=== PATIENT | male | born 1940 | race Caucasian/White ===

== ENCOUNTER 2023-03-25 09:56 | Inpatient (IN) | payer MEDICARE, OTHER, SELFPAY ==
[2023-03-25] VITALS (14 sets, daily range): BP systolic 128–173; BP diastolic 69–80; PULSE 76–85; RESP 15–24; TEMP 36.6–36.8; O2SAT 93–99; BMI 24.4
--- NOTE | 2023-03-25 10:15 | ED_ITS ---
HPI - General Adult General Chief complaint: Fall Stated complaint: Fall last night,found on ground Time Seen by Provider: 03/25/23 10:09 Source: patient and EMS Mode of arrival: EMS Limitations: no limitations History of Present Illness HPI narrative: Patient is an 82-year-old male. Not on anticoagulation. Does have history of Parkinson's disease. At baseline uses a walker. He states that last night he was trying to get his pants on. He states he was standing on 1 leg and fell over. He did not specifically hurt anything when he fell but he did hit his head. There was no loss of consciousness. He stated that he could not get up because he was so weak. He worked his way over to the hallway but then had to stop. He laid on his right side all night. His family members who found him this morning. They contacted EMS. After the patient was rolled over onto his back he started to have pain in his right arm and right hand. That has continued. He reports no headache. He does have some blurry vision in his right eye with some bruising around his right eye. No chest pain. No shortness of breath. No hip pain or lower extremity pain. Review of Systems Review of Systems ROS Unobtainable: All systems reviewed & are unremarkable except as noted in HPI and below Patient History Medical History Parkinsons disease Exam Initial Vital Signs Initial Vital Signs: Vital Signs Pulse Rate 80 03/25/23 10:01 Pulse Oximetry 95 03/25/23 10:01 Const General: cooperative HENMT Head: contusion (With swelling around the right eye), No hematoma and No laceration Mouth: moist mucous membranes Chest Chest: No crepitus and No tenderness Resp Effort & Inspection: normal respiratory effort Auscultation: clear to auscultation bilaterally Cardio Rate: regular rate Rhythm: regular rhythm GI Inspection: normal to inspection and non-distended Back/Spine/Pelvis Cervical Spine: No cervical spinal tenderness Skin Other: Patient has a contusion and some swelling around his right eye. He has what appeared to be ruptured blisters on his right anterior chest and also his right upper quadrant. This is consistent with pressure sores leg in this area. He does have contusions to his right forearm. No active bleeding. Neuro General: patient alert, patient awake, patient oriented x3 and moves all extremities Cognition: normal cognition Speech: speech normal Extrem Other: Patient's hips were stable. He was able to raise and lower his legs. His knees and ankles unremarkable. Left upper extremities unremarkable. His right s houlder is unremarkable. He does have tenderness and some swelling just distal to his right forearm. His right forearm compartments are soft. He is able to flex and extend his wrist but has quite a bit of discomfort in his hand. Scores GCS [place] coma scale eye opening: Spontaneous Marlene coma scale verbal response: Orientated Marlene coma scale motor response: Obey commands Marlene coma scale total score: 15 Nexus Score for C-Spine Focal Neurologic deficit present: No Midline spinal tenderness present: No Altered level of conciousness present: No Intoxication present: No Distracting Injury Present: No Nexus Criteria for C-spine: 0 Course Orders Ordered: ED Orders 03/25/23 10:16 CT facial bones wo con Stat CT head/brain wo con Stat XR forearm RT 2V Stat XR hand RT min 3V Stat 03/25/23 10:18 Complete Blood Count AUTO DIFF Stat Comprehensive Metabolic Panel Stat Lipase Stat Magnesium Stat Troponin & CK Cardiac Panel Stat 03/25/23 11:31 COVID19 -Nasal RAPID Stat Acetaminophen (Acetaminophen 325 Mg Tablet) 650 mg PO Q6H PRN PRN Reason: Fever/Mild Pain (1-3) Enoxaparin Sodium (Enoxaparin 40 Mg/0.4 Ml Syringe) 40 mg SUBCUT DAILY PAMELA Sodium Chloride (Normal Saline 0.9%) 1,000 mls @ 125 mls/hr IV CONT PAMELA Last Admin: 03/25/23 10:51 Dose: 125 mls/hr Documented By: ILIR Melatonin (Melatonin 3 Mg Tablet) 6 mg PO BEDTIME PRN PRN Reason: Insomnia Naloxone HCl (Naloxone 0.4 Mg/Ml Vial) 0.2 mg IV Q2MIN PRN PRN Reason: Opiate Reversal Ondansetron HCl (Ondansetron 4 Mg/2 Ml Inj) 4 mg IV Q6HR PAMELA Oxycodone HCl (Oxycodone Ir 5 Mg Tablet) 5 mg PO Q4HR PRN PRN Reason: Pain, Moderate (4-6) Polyethylene Glycol (Polyethylene Glycol 3350 17 Gm Powd.Pack) 17 gm PO DAILY PRN PRN Reason: Constipation Sennosides (Sennosides 8.6 Mg Tablet) 8.6 mg PO BID PRN PRN Reason: Constipation Vital Signs Vital signs: Vital Signs - 8 hr 03/25/23 10:07 03/25/23 10:01 03/25/23 10:04 Temperature 98.1 F Pulse Rate 81 80 80 Respiratory Rate 16 21 Blood Pressure 168/80 H Pulse Oximetry 95 95 95 Oxygen Delivery Method Room Air 03/25/23 10:04 03/25/23 10:44 03/25/23 10:44 Temperature Pulse Rate 84 Respiratory Rate 23 Blood Pressure 168/80 H 173/79 H Pulse Oximetry 99 Oxygen Delivery Method 03/25/23 10:50 03/25/23 10:50 03/25/23 11:00 Temperature Pulse Rate 84 80 Respiratory Rate 23 20 Blood Pressure 169/79 H Pulse Oximetry 99 98 Oxygen Delivery Method 03/25/23 11:01 03/25/23 11:01 03/25/23 11:10 Temperature Pulse Rate 80 81 Respiratory Rate 20 21 Blood Pressure 168/72 H Pulse Oximetry 98 94 Oxygen Delivery Method 03/25/23 11:10 03/25/23 11:20 03/25/23 11:20 Temperature Pulse Rate 81 Respiratory Rate 18 Blood Pressure 171/80 H 163/74 H Pulse Oximetry 94 Oxygen Delivery Method Medical Decision Making Lab Data Lab results reviewed: Yes I reviewed the patient's lab results. 03/25/23 10:18 03/25/23 10:18 Labs: Lab Results 03/25/23 03/25/23 03/25/23 Range/Units 10:18 10:18 10:18 WBC 12.9 H (4.5-11.0) X10^3/uL RBC 4.77 (4.5-5.9) X10^6/uL Hgb 15.9 (13.5-17.5) g/dL Hct 45.0 (41-53) % MCV 94.3 (80-100) fL MCH 33.2 (26-34) PG MCHC 35.2 (30-36) % RDW 13.7 (11.6-14.8) % Plt Count 198 (150-400) X10^3/uL Neut % (Auto) 87.6 H (50-75) % Lymph % (Auto) 5.1 L (25-40) % [place] % (Auto) 6.8 (3-14) % Eos % (Auto) 0.0 L (2-4) % Baso % (Auto) 0.5 (0-2) % Neut # (Auto) 67769 H (8179-2011) /uL Lymph # (Auto) 700 L (7234-5407) /uL [place] # (Auto) 900 (0-900) /uL Eos # (Auto) 0 (0-450) /uL Baso # (Auto) 100 (0-100) /uL Sodium 138 (137-145) mmol/L Potassium 3.5 (3.4-5.1) mmol/L Chloride 103 (98-107) mmol/L Carbon Dioxide 23 (22-32) mmol/L BUN 33 H (9-20) mg/dL Creatinine 0.81 (0.66-1.25) mg/dL Estimated GFR > 60 (>60) mL/min BUN/Creatinine Ratio 40.7 H (6-22) Glucose 155 H (80-110) mg/dL Calcium 9.0 (8.4-10.2) mg/dL Magnesium 2.2 (1.6-2.3) mg/dL Total Bilirubin 1.7 H (0.2-1.3) mg/dL AST 145 H (17-59) IU/L ALT 45 (<50) IU/L Alkaline Phosphatase 61 (38-126) U/L Total Creatine Kinase 51834 H (55-170) U/L CK-MB (CK-2) 33.00 H (<2.37) ng/mL CK-MB (CK-2) Rel Index 0.3 L (1.5-5.0) % Troponin I 0.032 (0.01-0.034) ng/mL Total Protein 7.1 (6.3-8.2) g/dL Albumin 4.3 (3.5-5.0) g/dL Globulin 2.8 (1.7-4.1) g/dL Albumin/Globulin Ratio 1.5 (1.0-2.8) Lipase 28 (23-300) U/L Imaging Data face CT: Radiologist's Impression: PROCEDURE:? CT FACIAL BONES WO CON ? INDICATIONS:? fall with right sided contusion ? TECHNIQUE:? Noncontrast 2.5 mm thick axial images acquired from the mandible through the frontal sinuses, with coronal and sagittal reformatting.? For radiation dose reduction, the following was used:? automated exposure control, adjustment of mA and/or kV according to patient size.? ? COMPARISON:? None. ? FINDINGS:? Image quality:? Good ? Bones: No displaced fracture. Orbital medley are intact. Nasal bone and septum are intact. Mandible is intact. Zygomatic arches and pterygoid plates are intact. No skull base fracture. ? Sinuses and mastoids:? Mastoids are clear.? Mild paranasal sinus mucosal thickening, without intra sinus hemorrhage. ? Soft tissues:? Soft tissue contusion in the right periorbital and infraorbital region. ? Brain:? Separately dictated ? IMPRESSION:? Right facial and infra orbital/periorbital soft tissue contusion.? No displaced fracture identified. Extremity x-ray #1: Radiologist's Impression: PROCEDURE:? XR FOREARM RT 2V ? INDICATIONS:? fall with pain ? TECHNIQUE:? 2 views of the forearm were acquired.? ? COMPARISON:? None. ? FINDINGS:? ? Bones:? No fracture of the ulnar or radial shafts.? Age indeterminate bone fragment is seen adjacent to the lateral humeral epicondyle, likely chronic.? There is also a tiny bone fragment volar to the carpal bones seen on lateral view also age- indeterminate. ? Soft tissues:? No suspicious calcifications elsewhere. ? ? IMPRESSION:? No definite acute radiographic abnormality.? If there is high concern for occult injury, consider repeat radiography or cross-sectional imaging. Hand findings are separately dictated Extremity x-ray #2: Radiologist's Impression: PROCEDURE:? XR HAND RT MIN 3V ? INDICATIONS:? fall with pain ? TECHNIQUE:? 3 views of the hand(s) acquired.? ? COMPARISON:? None. ? FINDINGS:? ? Bones:? Overall suboptimal positioning due to patient compliance. ? Scattered degenerative changes. ? No displaced fracture or dislocation identified. ? Soft tissues:? Hyperdensity is seen adjacent to the 1st metacarpal on oblique vi ew. ? ? IMPRESSION:? No acute radiographic abnormality.? Scattered degenerative changes.? Suboptimal positioning.? If there is high concern for occult injury, consider repeat radiography or cross-sectional imaging. CT scan - head: Radiologist's Impression: PROCEDURE:? CT HEAD/BRAIN WO CON ? INDICATIONS:? fall ? TECHNIQUE:? Noncontrast 4.5 mm thick angled axial sections acquired from the foramen magnum to the vertex, with coronal and sagittal reformats.? For radiation dose reduction, the following was used:? automated exposure control, adjustment of mA and/or kV according to patient size.? ? COMPARISON:? None. ? FINDINGS:? Image quality:? Good ? CSF spaces: Basal cisterns are patent. Lateral ventricles are symmetric. Volume:? Vascular calcifications. Periventricular white matter disease is commonly seen with chronic microangiopathy. Volume loss is present. These findings are moderate ? Brain: No intracranial hemorrhage. Curtis-white differentiation is grossly maintained. ? Craniofacial structures:? Separately dictated ? IMPRESSION:? No acute intracranial abnormality.? Facial findings are separately dictated. MDM Narrative Medical decision making narrative: Patient is alert oriented upon arrival. Cervical spine is cleared by nexus criteria. His CK is elevated and this is consistent with him lying on his arm overnight. He is no fractures noted on the x-rays. I have low suspicion for compartment syndrome as his compartments are soft and he does not have any pain with active or passive movement of his wrist or his elbow. This is certainly something that needs to be watched. I did discuss this with the admitting provider. This did appear to be a mechanical fall. Patient does require admission to the hospital for further evaluation and IV fluids. I discuss this with the patient and his family at bedside. I also discussed the case with Dr. Nichols hospitalist on-call who will admit for further evaluation and treatment. Discharge Plan Departure Patient Disposition: Admitted As Inpatient Clinical Impression: Rhabdomyolysis, Contusion of skin, Parkinson's disease Admit Date/Time: 03/25/23 11:29 Admit Provider: Raheel Nichols
--- NOTE | 2023-03-25 10:16 | DI.RAD.S_ITS ---
PROCEDURE: XR FOREARM RT 2V INDICATIONS: fall with pain TECHNIQUE: 2 views of the forearm were acquired. COMPARISON: None. FINDINGS: Bones: No fracture of the ulnar or radial shafts. Age indeterminate bone fragment is seen adjacent to the lateral humeral epicondyle, likely chronic. There is also a tiny bone fragment volar to the carpal bones seen on lateral view also age-indeterminate. Soft tissues: No suspicious calcifications elsewhere. IMPRESSION: No definite acute radiographic abnormality. If there is high concern for occult injury, consider repeat radiography or cross-sectional imaging. Hand findings are separately dictated Dictated by: Fito Ramsey M.D. on 03/25/2023 at 11:06 Approved by: Fito Ramsey M.D. on 03/25/2023 at 11:08
--- NOTE | 2023-03-25 10:16 | DI.CT.S_ITS ---
PROCEDURE: CT HEAD/BRAIN WO CON INDICATIONS: fall TECHNIQUE: Noncontrast 4.5 mm thick angled axial sections acquired from the foramen magnum to the vertex, with coronal and sagittal reformats. For radiation dose reduction, the following was used: automated exposure control, adjustment of mA and/or kV according to patient size. COMPARISON: None. FINDINGS: Image quality: Good CSF spaces: Basal cisterns are patent. Lateral ventricles are symmetric. Volume: Vascular calcifications. Periventricular white matter disease is commonly seen with chronic microangiopathy. Volume loss is present. These findings are moderate Brain: No intracranial hemorrhage. Curtis-white differentiation is grossly maintained. Craniofacial structures: Separately dictated IMPRESSION: No acute intracranial abnormality. Facial findings are separately dictated. Dictated by: Fito Ramsey M.D. on 03/25/2023 at 10:46 Approved by: Fito Ramsey M.D. on 03/25/2023 at 10:47
--- NOTE | 2023-03-25 10:16 | DI.RAD.S_ITS ---
PROCEDURE: XR HAND RT MIN 3V INDICATIONS: fall with pain TECHNIQUE: 3 views of the hand(s) acquired. COMPARISON: None. FINDINGS: Bones: Overall suboptimal positioning due to patient compliance. Scattered degenerative changes. No displaced fracture or dislocation identified. Soft tissues: Hyperdensity is seen adjacent to the 1st metacarpal on oblique view. IMPRESSION: No acute radiographic abnormality. Scattered degenerative changes. Suboptimal positioning. If there is high concern for occult injury, consider repeat radiography or cross-sectional imaging. Dictated by: Fito Ramsey M.D. on 03/25/2023 at 11:08 Approved by: Fito Ramsey M.D. on 03/25/2023 at 11:10
--- NOTE | 2023-03-25 10:16 | DI.CT.S_ITS ---
PROCEDURE: CT FACIAL BONES WO CON INDICATIONS: fall with right sided contusion TECHNIQUE: Noncontrast 2.5 mm thick axial images acquired from the mandible through the frontal sinuses, with coronal and sagittal reformatting. For radiation dose reduction, the following was used: automated exposure control, adjustment of mA and/or kV according to patient size. COMPARISON: None. FINDINGS: Image quality: Good Bones: No displaced fracture. Orbital medley are intact. Nasal bone and septum are intact. Mandible is intact. Zygomatic arches and pterygoid plates are intact. No skull base fracture. Sinuses and mastoids: Mastoids are clear. Mild paranasal sinus mucosal thickening, without intra sinus hemorrhage. Soft tissues: Soft tissue contusion in the right periorbital and infraorbital region. Brain: Separately dictated IMPRESSION: Right facial and infra orbital/periorbital soft tissue contusion. No displaced fracture identified. Dictated by: Fito Ramsey M.D. on 03/25/2023 at 10:47 Approved by: Fito Ramsey M.D. on 03/25/2023 at 10:50
[2023-03-25 10:40] LABS: Add Manual Diff / Slide Review NO; Basophils Absolute Auto 100 /uL (0-100); Basophils Percent Auto 0.5 % (0-2); Eosinophils Absolute Auto 0 /uL (0-450); Hemoglobin 15.9 g/dL (13.5-17.5); Lymphocytes Absolute Auto 700 /uL (1100-4500); Lymphocytes Percent Auto 5.1 % (25-40); Mean Corpuscular HGB Conc 35.2 % (30-36); Mean Corpuscular Hemoglobin 33.2 PG (26-34); Mean Corpuscular Volume 94.3 fL (80-100); Monocytes Absolute Auto 900 /uL (0-900); Monocytes Percent Auto 6.8 % (3-14); Neutrophils Absolute Auto 11300 /uL (1500-7000); Neutrophils Percent Auto 87.6 % (50-75); Platelet Count 198 X10^3/uL (150-400); Red Blood Cell Count 4.77 X10^6/uL (4.5-5.9); Red Cell Distribution Width 13.7 % (11.6-14.8); White Blood Cell Count 12.9 X10^3/uL (4.5-11.0)
[2023-03-25 10:46] LABS: Lipase 28 U/L (23-300); Magnesium 2.2 mg/dL (1.6-2.3)
[2023-03-25 10:47] LABS: Alanine Aminotransferase 45 IU/L (<50); Albumin 4.3 g/dL (3.5-5.0); Albumin Globulin Ratio 1.5 (1.0-2.8); Alkaline Phosphatase 61 U/L (38-126); Aspartate Aminotransferase 145 IU/L (17-59); BUN Creatinine Ratio 40.7 (6-22); Bilirubin Total 1.7 mg/dL (0.2-1.3); Blood Urea Nitrogen 33 mg/dL (9-20); Carbon Dioxide 23 mmol/L (22-32); Chloride 103 mmol/L (98-107); Estimated Glomerular Filt Rate > 60 mL/min (>60); Globulin 2.8 g/dL (1.7-4.1); Glucose 155 mg/dL (80-110); HEMOLYSIS 21 (0-50); Potassium 3.5 mmol/L (3.4-5.1); Sodium 138 mmol/L (137-145); Total Protein 7.1 g/dL (6.3-8.2)
[2023-03-25] MEDS: SODIUM CHLORIDE 0.9% 1,000 ML 125 ML IV ×2 (10:51→20:46)
[2023-03-25 10:57] LABS: Troponin I 0.032 ng/mL (0.01-0.034)
[2023-03-25 11:03] LABS: Creatine Kinase 11163 U/L (55-170)
--- NOTE | 2023-03-25 11:21 | PM.HP.1 ---
History of Present Illness History of Present Illness Date Patient Seen: 03/25/23 Time Patient Seen: 15:00 Chief complaint: Fall last night,found on ground Narrative: Mohan Roberts is an 82-year-old male with past medical history of Parkinson's disease not on Sinemet and HTN who presents after fall at home and lying on the ground all night. Patient states he lives alone in a trailer and uses a walker to ambulate. Last night while attempting to put on pants, he tripped and landed facefirst. He was unable to get up due to weakness from his Parkinson's. He did not lose conciousness. He says he laid on the floor overnight for over 6 hours until his family found him and called EMS. He states he is having pain in his right hand and arm. Both are more swollen than his left extremity. He still has feeling in his hand. Patient says he doesn't take meds for his parkinson's due to hallucinations he had with them in the past. He denies CP, SOB, abd pain, NV or diarrhea. In the ED patient found to have rhabdo with CK 11k. Cr normal. CT head, neck, face and right hand XR shows no fractures. He has a right periorbital contusion on CT from his face lying on the ground. [facility] Medical History Parkinsons disease Social History household members: children Smoking Status: Former smoker Review of Systems Review of Systems Narrative: All other systems reviewed with the patient and are negative unless otherwise stated. Exam Vital Signs (past 8 hours): - 03/25/23 10:07 Temperature 98.1 F Pulse Rate 81 Respiratory Rate 16 Blood Pressure 168/80 H Pulse Oximetry 95 Oxygen Delivery Method Room Air Oxygen Delivery Method Room Air Narrative Exam Narrative: GEN: no acute distress, flat affect due to parkinson's HEENT: moist mucous membranes, PERRL NECK: trachea midline, no JVD CV: regular rate and rhythm, no murmurs PULM: clear bilaterally ABD: soft, nontender, nondistended, no organomegaly EXT: right forearm and hand with increased swelling, no erythema, cap refill normal and sensation intact NEURO: awake, alert, oriented, no focal deficits Objective Labs 03/25/23 10:18 05/16/23 10:18 Labs: Laboratory Results - last 24 hr 03/25/23 03/25/23 03/25/23 10:18 10:18 10:18 WBC 12.9 H RBC 4.77 Hgb 15.9 Hct 45.0 MCV 94.3 MCH 33.2 MCHC 35.2 RDW 13.7 Plt Count 198 Neut % (Auto) 87.6 H Lymph % (Auto) 5.1 L Tyrrell % (Auto) 6.8 Eos % (Auto) 0.0 L Baso % (Auto) 0.5 Neut # (Auto) 45777 H Lymph # (Auto) 700 L [place]rell # (Auto) 900 Eos # (Auto) 0 Baso # (Auto) 100 Sodium 138 Potassium 3.5 Chloride 103 Carbon Dioxide 23 BUN 33 H Creatinine 0.81 Estimated GFR > 60 BUN/Creatinine Ratio 40.7 H Glucose 155 H Calcium 9.0 Magnesium 2.2 Total Bilirubin 1.7 H AST 145 H ALT 45 Alkaline Phosphatase 61 Total Creatine Kinase 46132 H Troponin I 0.032 Total Protein 7.1 Albumin 4.3 Globulin 2.8 Albumin/Globulin Ratio 1.5 Lipase 28 Assessment & Plan Assessment & Plan narrative: # acute rhabdomyolysis -CK 11,163, normal kidney function -continue IV fluids and trending CK levels # ground level fall and prolonged downtime -accidentally tripped while putting on pants -PT/OT evals -[employer] as will likely need SNF # right forearm and hand swelling -no evidence of compartment syndrome -oxy PRN for pain # elevated AST -145 on admission, normal ALT -monitor # Parkinson's disease -not on sinemet # HTN -hold home HCTZ and lisinopril as currently normotensive Code status is DNR. COVID negative. DVT prophylaxis with Lovenox. Proxy is son Mark. I have reviewed home meds and used all available resources to reconcile the home meds. This patient will be admitted as observation and will require less than 2 midnights of hospital time to treat rhabdomyolysis.
[2023-03-25 11:28] LABS: CKMB % Relative Index 0.3 % (1.5-5.0)
--- NOTE | 2023-03-25 11:34 | DI.RAD.S_ITS ---
PROCEDURE: XR CHEST 1V INDICATIONS: leukocytosis, fall eval for broken ribs TECHNIQUE: One view of the chest was acquired. 2 images. COMPARISON: None. FINDINGS: Surgical changes and devices: None. Lungs and pleura: Lungs are clear. No pleural effusions or pneumothorax. Mediastinum: Mediastinal contours appear normal. Heart size is normal. Bones and chest wall: No suspicious bony lesions. No obvious displaced rib fracture. Overlying soft tissues appear unremarkable. IMPRESSION: No acute cardiopulmonary abnormality. No obvious displaced rib fracture. Consider dedicated rib radiographs or CT chest for further evaluation. Dictated by: Pedro Bonilla M.D. on 03/25/2023 at 12:18 Approved by: Pedro Bonilla M.D. on 03/25/2023 at 12:19
[2023-03-25 11:47] LABS: COVID19 -Nasal RAPID Negative (Negative)
--- NOTE | 2023-03-25 14:20 | PT.IIE ---
Medical History (Last Reviewed 03/25/23 @ 10:38 by Onesimo Mckeon DO) Parkinsons disease Physical Therapy Inpatient Evaluation/Re-Eval M1 PT/OT-IP Prior Functional Status Start: 03/25/23 15:46 Freq: NEEDED Status: Active Protocol: Document 03/25/23 14:20 AB (Rec: 03/25/23 16:07 AB [email or web address]) Medical Review Prior Functional Status Medical History Reviewed Yes Communication able to make needs known but pt slow to respond to question Mobility and Gait pt sated that he is modified independent with all mobilities and ambulation uisng a 4WW but occasionally without AD indoors. Social History Household Members none Living Arrangements Mobile home Number of Floors (Floors) One Floor Number of Stairs To Enter/Railing? 3 steps B rails to enter Home Environment Standard Height Toilet,Walk in Shower Home Equipment Four Wheel Walker,Hand Held Shower,Grab Bars Near Toilet, Grab Bars In Shower Additional Social History Comment pt stated that her son/DIL visits him daily for ~ 1 hour and assists him with his groceries M2 PT-IP Current Condition Start: 03/25/23 15:46 Freq: NEEDED Status: Active Protocol: Document 03/25/23 14:20 AB (Rec: 03/25/23 16:07 [email or web address]) Physical Therapy Current Condition Current Condition Evaluation Date 03/25/23 Treatment Diagnosis s/p fall; rhabdomyolysis; PD; difficulty in walking Onset Date 03/25/23 M3 PT-IP Subjective Start: 03/25/23 15:46 Freq: NEEDED Status: Active Protocol: Document 03/25/23 14:20 AB (Rec: 03/25/23 16:07 [email or web address]) Subjective Physical Therapy Visit Type Type Initial Evaluation Visit Start Time 14:20 Visit Stop Time 14:55 Total Visit Minutes 35 Number of [employer] 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 Visits 0 Physical Therapy Visit Comments Patient Comments pt is agreeable to do PT Therapy Pain Assessment Pain When Pain Assessed At Rest Pain Present Pain Present Pain Reported Location R forearm/hand Intensity 5 Scale Used Numeric (0 - 10) Pain Management Techniques Distraction,Elevation, Modification of Treatment,Re- positioning,Timing of Activity with Medications M4 PT-IP Mobility and Gait Start: 03/25/23 15:46 Freq: NEEDED Status: Active Protocol: Document 03/25/23 14:20 AB (Rec: 03/25/23 16:07 AB [id number]) PT-Bed Mobility Assessment Supine to Sit Supine to Sit Maximum Assistance,1 Person Assistance,2 Person Assistance ,Head of Bed Elevated,Bedrails Sit to Supine Sit to Supine Maximum Assistance,1 Person Assistance Scooting Scooting to Edge of Bed Dependent PT-Transfer Assessment Sit to and From Stand Sit to and from Stand Maximum Assistance,1 Person Assistance,2 Person Assistance ,Use of Upper Extremities Equipment Transfer Assistive Device Gait Belt,Front Wheeled Walker Orthotic/Prosthetic Devices or Brace: No Transfer Ability Level of Assist Maximum Assistance,1 Person Assistance,2 Person Assistance ,Use of Upper Extremities Comments Mobility Comments pt completed supine to sit max A x 1-2 and max cues with HOB elevated and use of bed rail. pt with R forearm and hand swelling with c/o pain with increase finger flexion. pt with limited hand opening. total A for scooting to EOB. increase L lateral leaning noted and pt with increase overall trunk stiffness. completed sit to stand max A x 1-2 and max cues and ambulated ~ 10 ft using FWW max A x 1-2 and max cues. pt required max A for weight shifting to assist with LE propulsion. pt also has difficulty holding on to FWW due to R hand swelling requiring assist to hold on to FWW. pt sat back on EOB and required max A for sit to supine. positioned pt on the bed. call light and table placed within reach. pt demonstrated increase reaction time with all tasks. Gait Assessment Gait Gait Assistance Required: Maximum Assistance,1 Person Assist,2 Person Assist Distance (Feet) 10 Able to Maintain Weight Bearing Status Yes During Gait Assistive Devices Assistive Device Gait Belt,Front Wheeled Walker Orthotic/Prosthetic Devices or Brace: No Gait Deviations General Gait Pattern Decreased Stride Length, Decreased Feet Clearance, Lateral Trunk Lean,Narrow Based Gait,Step-to Gait Factors Limiting Gait Function Factors Limiting Gait Function Decreased Activity Tolerance, Decreased Strength,Difficulty Following Directions, Incoordination,Limited Range of Motion,Pain,Poor Balance, Poor Safety Awareness PT-Balance Assessment Sitting Balance and Reactions Static Sitting Balance Ability Fair Dynamic Sitting Balance Ability Poor Standing Balance and Reactions Static Standing Balance Ability Poor Dynamic Standing Balance Ability Poor Device Used FWW M5 PT-IP Objective Assessments Start: 03/25/23 15:46 Freq: NEEDED Status: Active Protocol: Document 05/16/23 14:20 AB (Rec: 03/25/23 16:07 AB [id number]) Orientation Orientation/Cognition Level of Alertness Alert Orientation Name Safety Awareness Decreased Safety Awareness Memory Description Short Term Impaired Gross Range of Motion Lower Extremity ROM Assessment Within Functional Limits Strength Lower Extremity Strength Assessment Within Functional Limits M6 PT-IP Treatment Start: 03/25/23 15:46 Freq: NEEDED Status: Active Protocol: Document 03/25/23 14:20 AB (Rec: 03/25/23 16:07 AB [id number]) Physical Therapy Treatment Education Education Provided Safety M7 PT-IP Assessment and Plan Start: 03/25/23 15:46 Freq: NEEDED Status: Active Protocol: Document 03/25/23 14:20 AB (Rec: 03/25/23 16:07 AB [email or web address]) PT Summary Assessment and Plan Potential Rehabilitation Potential Fair Status of Condition at Evaluation Evolving Summary Impairments Pain,ROM,Strength,Balance, Coordination,Sensation,Tone, Cognition,Bed Mobility, Transfers,Gait,Activity Tolerance Assessment Summary Pt s/p fall and admitted for rhabdomyolysis. pt also has dx of parkinson's disease but per nurse, pt is not taking any medication for PD due to side effects. pt needing max A x 1-2 with mobilities and will require SNF rehab at this time. will continue to assess progress. Goals Bed Mobility Goal Minimal Assistance Transfer Goal Minimal Assistance,Front Wheeled Walker Gait Goal Minimal Assistance,Front Wheel Walker Gait Distance 50 Other Goals improve bed mobility, transfers and ambulation using 4WW SBA up/down 3 steps B rails SBA Days to Meet Goals 10 Frequency of Treatment Frequency Of Treatment Once a Day Treatment Plan Physical Therapy Treatment Plan Bed Mobility Training,Transfer Training,Gait Training, Therapeutic Exercise,Balance Retraining,Discharge Planning, Hot or Cold Pack,Neuromuscular Re-ed,Coordination Retraining ,Manual Therapy Precautions Other Precautions falls Recommendations To Nursing Amount of Assist Needed 2 Person Assist Discharge Recommendations PT Discharge Recommendations SNF Rehab Transportation Needs at Discharge Wheelchair/Cabulance
[2023-03-26 04:58] VITALS: BP 151/78; PULSE 80; RESP 24; TEMP 36.6; O2SAT 97
[2023-03-26 05:58] LABS: Appearance Urine UA CLEAR; Bilirubin Urine UA 1+ (NEGATIVE); Color Urine UA YELLOW; Glucose Urine UA NEGATIVE (Negative); Ketones Urine UA 2+ (NEGATIVE); Leukocyte Esterase Urine UA NEGATIVE (NEGATIVE); Nitrite Urine UA NEGATIVE (Negative); Occult Blood Urine UA 3+ (Negative); Protein Urine UA 2+ (Negative); Specific Gravity Urine UA >=1.030 (1.000-1.035); pH Urine UA 5.5 (4.5-8.0)
[2023-03-26 06:05] LABS: Bacteria Urine None Seen; Culture Indicated Urine Cult Not Indicated; RBC Urine 0-1/HPF (0-5/HPF); WBC Urine 0-1/HPF (0-5/HPF)
[2023-03-26 06:18] LABS: Ictotest Urine Negative (Negative)
[2023-03-26 06:30] LABS: Add Manual Diff / Slide Review NO; Basophils Absolute Auto 0 /uL (0-100); Basophils Percent Auto 0.1 % (0-2); Eosinophils Absolute Auto 0 /uL (0-450); Hematocrit 45.2 % (41-53); Hemoglobin 16.2 g/dL (13.5-17.5); Lymphocytes Absolute Auto 900 /uL (1100-4500); Lymphocytes Percent Auto 6.9 % (25-40); Mean Corpuscular HGB Conc 35.7 % (30-36); Mean Corpuscular Hemoglobin 33.6 PG (26-34); Monocytes Absolute Auto 1000 /uL (0-900); Monocytes Percent Auto 7.8 % (3-14); Neutrophils Absolute Auto 11200 /uL (1500-7000); Neutrophils Percent Auto 85.2 % (50-75); Platelet Count 163 X10^3/uL (150-400); Red Blood Cell Count 4.81 X10^6/uL (4.5-5.9); Red Cell Distribution Width 13.5 % (11.6-14.8); White Blood Cell Count 13.1 X10^3/uL (4.5-11.0)
[2023-03-26 06:42] LABS: Alanine Aminotransferase 112 IU/L (<50); Albumin 3.4 g/dL (3.5-5.0); Albumin Globulin Ratio 1.2 (1.0-2.8); Alkaline Phosphatase 54 U/L (38-126); Aspartate Aminotransferase 453 IU/L (17-59); BUN Creatinine Ratio 43.3 (6-22); Bilirubin Total 1.7 mg/dL (0.2-1.3); Blood Urea Nitrogen 29 mg/dL (9-20); Calcium 8.3 mg/dL (8.4-10.2); Carbon Dioxide 27 mmol/L (22-32); Chloride 107 mmol/L (98-107); Estimated Glomerular Filt Rate > 60 mL/min (>60); Globulin 2.8 g/dL (1.7-4.1); Glucose 132 mg/dL (80-110); HEMOLYSIS < 15 (0-50); Potassium 3.6 mmol/L (3.4-5.1); Sodium 140 mmol/L (137-145); Total Protein 6.2 g/dL (6.3-8.2)
--- NOTE | 2023-03-26 07:12 | P.PN_ITS ---
Subjective Subjective Interval history: Patient appeared to have aspirated this morning. Has a very wet cough. CXR ordered, made NPO and speech consult ordered. Exam Vital Signs (past 8 hours): - 03/26/23 04:58 Temperature 97.8 F Pulse Rate 80 Respiratory Rate 24 Blood Pressure 151/78 H Pulse Oximetry 97 Oxygen Flow Rate 0 Oxygen Delivery Method Room Air Oxygen Flow Rate 0 Narrative Exam Narrative: GEN: no acute distress, flat affect due to parkinson's, wet sounding gurgly cough, diaphoretic HEENT: moist mucous membranes, PERRL NECK: trachea midline, no JVD CV: regular rate and rhythm, no murmurs PULM: clear bilaterally ABD: soft, nontender, nondistended, no organomegaly EXT: right forearm and hand with increased swelling, no erythema, cap refill normal and sensation intact NEURO: awake, alert, oriented, no focal deficits Objective Labs 03/26/23 05:50 03/26/23 05:50 Labs: Laboratory Results - last 24 hr 03/25/23 03/25/23 03/25/23 10:18 10:18 10:18 WBC 12.9 H RBC 4.77 Hgb 15.9 Hct 45.0 MCV 94.3 MCH 33.2 MCHC 35.2 RDW 13.7 Plt Count 198 Neut % (Auto) 87.6 H Lymph % (Auto) 5.1 L [place] % (Auto) 6.8 Eos % (Auto) 0.0 L Baso % (Auto) 0.5 Neut # (Auto) 66093 H Lymph # (Auto) 700 L [place] # (Auto) 900 Eos # (Auto) 0 Baso # (Auto) 100 Sodium 138 Potassium 3.5 Chloride 103 Carbon Dioxide 23 BUN 33 H Creatinine 0.81 Estimated GFR > 60 BUN/Creatinine Ratio 40.7 H Glucose 155 H Calcium 9.0 Magnesium 2.2 Total Bilirubin 1.7 H AST 145 H ALT 45 Alkaline Phosphatase 61 Total Creatine Kinase 49431 H CK-MB (CK-2) 33.00 H CK-MB (CK-2) Rel Index 0.3 L Troponin I 0.032 Total Protein 7.1 Albumin 4.3 Globulin 2.8 Albumin/Globulin Ratio 1.5 Lipase 28 Urine Color Urine Appearance Urine pH Ur Specific [place] Urine Protein Urine Glucose (UA) Urine Ketones Urine Occult Blood Urine Nitrate Urine Bilirubin Ur Bilirubin Confirm Urine Urobilinogen Ur Leukocyte Esterase Urine RBC Urine WBC Urine Bacteria Ur Culture Indicated? SARS-CoV-2 (PCR) 03/25/23 03/26/23 03/26/23 11:31 05:50 05:50 WBC 13.1 H RBC 4.81 Hgb 16.2 Hct 45.2 MCV 94.0 MCH 33.6 MCHC 35.7 RDW 13.5 Plt Count 163 Neut % (Auto) 85.2 H Lymph % (Auto) 6.9 L [place] % (Auto) 7.8 Eos % (Auto) 0.0 L Baso % (Auto) 0.1 Neut # (Auto) 74714 H Lymph # (Auto) 900 L [place] # (Auto) 1000 H Eos # (Auto) 0 Baso # (Auto) 0 Sodium Potassium Chloride Carbon Dioxide BUN Creatinine Estimated GFR BUN/Creatinine Ratio Glucose Calcium Magnesium Total Bilirubin AST ALT Alkaline Phosphatase Total Creatine Kinase CK-MB (CK-2) CK-MB (CK-2) Rel Index Troponin I Total Protein Albumin Globulin Albumin/Globulin Ratio Lipase Urine Color Yellow Urine Appearance Clear Urine pH 5.5 Ur Specific [place] >=1.030 H Urine Protein 2+ H Urine Glucose (UA) Negative Urine Ketones 2+ H Urine Occult Blood 3+ H Urine Nitrate Negative Urine Bilirubin 1+ H Ur Bilirubin Confirm Negative Urine Urobilinogen 1.0 Ur Leukocyte Esterase Negative Urine RBC 0-1/hpf Urine WBC 0-1/hpf Urine Bacteria None seen Ur Culture Indicated? Cult not indicated SARS-CoV-2 (PCR) Negative PFSH Medical History (Updated 03/25/23 @ 17:48 by Denisse Blackmon RN) Actinic keratosis Arthritis Depression Drooling Erectile dysfunction Essential hypertension Falls frequently Fasting hyperglycemia Former smoker Hypertension Inguinal hernia Lumbar back pain Macrocytosis Normal colonoscopy Osteoarthritis of right hip Parkinsons disease Sebaceous cyst Seborrheic keratosis Surgical History (Updated 03/25/23 @ 17:48 by Denisse Blackmon RN) H/O cataract removal with insertion of prosthetic lens Social History household members: none Smoking Status: Former smoker Assessment & Plan Assessment & Plan narrative: # acute rhabdomyolysis without ASHKAN -CK 11,163, normal kidney function -continue IV fluids and trending CK levels -CK up to 17k # concern for possible aspiration -patient appeared to aspirate on his breakfast on -CXR shows no pneumonitis -strict NPO, speech eval ordered -MBS ordered per speech recs # ground level fall and prolonged downtime -accidentally tripped while putting on pants, too weak to get up likely due to parkinson's -PT/OT evals -[facility] as will likely need SNF # right forearm and hand swelling -no evidence of compartment syndrome, no fractures on imaging -oxy PRN for pain # elevated LFT's -likely due to rhabdo -monitor # Parkinson's disease -not on sinemet due to hallucinations with it -had referral to neurologist placed, but patient didn't want to go -spoke with patient and son on 03/26 about the importance of treating his parkinsons given risk of progressive disease causing falls, aspiration and pneumonia is high. Patient agreed to see neurology as outpatient. # HTN -hold home HCTZ and lisinopril as currently normotensive Code status is DNR. COVID negative. DVT prophylaxis with Lovenox. Proxy is son Mark. Dispo: Pending swallow eval, SNF placement. Quality VTE Deep Vein Thrombosis/Pulmonary Embolism Present on Admission: No
[2023-03-26 07:17] LABS: Creatine Kinase 17553 U/L (55-170)
[2023-03-26 08:20] VITALS: BP 140/77; PULSE 83; RESP 18; TEMP 36.5; O2SAT 95
--- NOTE | 2023-03-26 08:54 | DI.RAD.S_ITS ---
PROCEDURE: XR CHEST 1V INDICATIONS: concern for aspiration TECHNIQUE: One view of the chest was acquired. COMPARISON: [facility], CR, XR CHEST 1V, 03/25/2023, 11:42. FINDINGS: Surgical changes and devices: None. Lungs and pleura: Lungs are clear. No pleural effusions or pneumothorax. Mediastinum: Mediastinal contours appear normal. Heart size is normal. Bones and chest wall: No suspicious bony lesions. Overlying soft tissues appear unremarkable. IMPRESSION: No acute cardiopulmonary pathology. Dictated by: Jn Salter M.D. on 03/26/2023 at 8:38 Approved by: Jn Salter M.D. on 03/26/2023 at 8:39
--- NOTE | 2023-03-26 08:59 | CM.DANOTE ---
DCP: CM team entered room and introduced self and role. Patient currently observation status at this time. UR team sending referral to EHR to see patient meets inpatient. If patient remains obs, he will not qualify for SNF, he will have to pay privately for room and board. Patient was A/Ox4 but sleepy throughout the assessment. Patient is here after falling in his trailer while trying to put on pants and being unable to get up for 6 hours until family came and called EMS. Current diagnoses are rhabdomyolysis and Parkinson's. Patient reports living alone in his trailer in [place] and uses a FWW in his home as needed. Patient reports his son/DPOA, Mark [phone], assists him with driving and delivering him groceries/helps with other needs around his home. Patient told this team that he would be open to SNF if determined medically necessary and available. At this time PT/OT are recommending SNF to build strength/strategies for self care. Per provider note, patient reports not taking his medication for Parkinson's due to them causing hallucinations. Per rounds 03/26, provider states patient has deteriorated overnight and is now struggling with respirations PCP: Jagjit Shannon Insurance: 1) Medicare 2) for Life Plan: CM team will continue to assess for needs as patient continues stay. CM team will continue to monitor inpatient/observation status. CM team will contact son and DPOA, Mark [phone], for more information on patient baseline. CM team will offer resources and information on life alert/fall alert devices. CM team will inquire about resources for getting his medication. Plan A) SNF if determined medically necessary. CM team will offer list of options to patient this afternoon (03/26/23). If SNF not an option, will discuss HH with patient. ALEXANDRU Gasca Discharge Planning/Care Management Advanced directive, confirm from FAMILY Start: 03/25/23 14:06 Freq: Q24H Status: Active Protocol: Document 03/25/23 14:06 CEW (Rec: 03/25/23 14:28 CEW [id number]) Advance Directive, confirm on record Time 14:00 Person contacted Marco Flores Copy received No CM Discharge Assessment Start: 03/26/23 08:54 Freq: Status: Active Protocol: Document 03/26/23 08:55 SL (Rec: 03/26/23 08:59 [id number]) Discharge Planning Assessment Assigned Section Supervisor ALEXANDRU Gasca/Assigned Designee Name marco Roberts Contact Information [phone] Advance Directives? Yes Advance Directives on File No History Provided By Patient,Medical Record Prior Living Arrangements Mobile home Household Members none Type of transporation used prior to Relies on Others admit Comment Reports son drives him or brings him things he needs. Independent with ADL's No: Son helps him Is patient alert and oriented? Yes Needs Assistance With Home Chores / Shopping Caregiver for Another No DME Already Rented / Owned FWW / Walker Comment reports uses as needed at home . Patient/Family Preference [facility] Facility,Home with Home Health Comment potentially SNF or HH PT/OT. Decision pending patient trajectory throughout stay. Barriers to Discharge No Whiteboard Updated in Patient Room with Yes name and ext. # of Section Supervisor Review Status In Process Next Review Type Continued Stay Review
--- NOTE | 2023-03-26 09:58 | PT-IP ANOTE ---
Pt found resting in bed, alert when awakened. Pt refused to sit EOB with therapist, reports not feeling well. Pt also appears to be confused, started talking about the windshield wipers on his car and had difficulty answering questions/following instructions. Spoke with nursing on pt's current state and KRISTIN Davila reported he hasn't been doing well this morning. PT may attempt to see pt in afternoon if more appropriate.
[2023-03-26] MEDS: ENOXAPARIN 40 MG/0.4 ML SYRINGE SUBCUT (12:55)
[2023-03-26] MEDS: SODIUM CHLORIDE 0.9% 1,000 ML 125 ML IV (12:57)
--- NOTE | 2023-03-26 13:57 | DI.RAD.S_ITS ---
PROCEDURE: FL BARIUM SWALLOW W SPEECH INDICATIONS: aspirating COMPARISON: TECHNIQUE: Examination was conducted in conjunction with speech pathology per standard protocol. In the lateral projection, filming was performed of the patient swallowing. AP projection filming may also be performed with patient swallowing. COMPARISON: [facility], CR, XR CHEST 1V, 03/26/2023, 9:09. FINDINGS: Function: The oral preparatory phase appears normal, with proper containment. The subsequent oral propulsive phase, pharyngeal phase, and esophageal phase of swallowing also appear normal with all proffered substances. Recurrent laryngeotracheal penetration and tracheobronchial aspiration is noted. Vallecular pooling is noted throughout the exam. Exam was terminated early due to aspiration. Morphology: No cricopharyngeal bar is identified. No cervical esophageal webs. No Zenker's diverticulum. No strictures. IMPRESSION: Recurrent laryngeal penetration and johanna aspiration. Approved by: Toño Cunningham M.D. on 03/26/2023 at 15:10
--- NOTE | 2023-03-26 14:20 | OT.IP.EVAL ---
Current Diagnoses Rhabdomyolysis (03/25/23) Past Medical History (Last Updated 03/25/23 @ 17:48 by Denisse Blackmon RN) Actinic keratosis Arthritis Depression Drooling Erectile dysfunction Essential hypertension Falls frequently Fasting hyperglycemia Former smoker Hypertension Inguinal hernia Lumbar back pain Macrocytosis Normal colonoscopy Osteoarthritis of right hip Parkinsons disease Sebaceous cyst Seborrheic keratosis Surgical History (Last Updated 03/25/23 @ 17:48 by Denisse Blackmon RN) H/O cataract removal with insertion of prosthetic lens Occupational Therapy Inpatient Evaluation/Re-Eval M1 PT/OT-IP Prior Functional Status Start: 03/26/23 14:23 Freq: NEEDED Status: Active Protocol: Document 03/26/23 14:00 [facility] (Rec: 03/26/23 14:48 [facility] [id number]) Medical Review Prior Functional Status Medical History Reviewed Yes Communication able to make needs known but pt slow to respond to question Mobility and Gait pt sated that he is modified independent with all mobilities and ambulation using a 4WW but occasionally without AD indoors. Social History Household Members none Living Arrangements Mobile home Number of Stairs To Enter/Railing? 3 steps B rails to enter Home Environment Standard Height Toilet,Walk in Shower Home Equipment Four Wheel Walker,Hand Held Shower,Grab Bars Near Toilet, Grab Bars In Shower Additional Social History Comment pt stated that her son/DIL visits him daily for ~ 1 hour and assists him with his groceries M2 OT-IP Current Condition Start: 03/26/23 14:23 Freq: Status: Active Protocol: Document 03/26/23 14:00 [facility] (Rec: 03/26/23 14:48 [facility] [id number]) Occupational Therapy Current Condition Current Condition Evaluation Date 03/26/23 Treatment Diagnosis S/p Fall, Rhabdomylysis Diagnosis Onset Date 03/25/23 M3 OT- IP Subjective and Pain Start: 03/26/23 14:23 Freq: Status: Active Protocol: Document 03/26/23 14:00 [facility] (Rec: 03/26/23 14:48 [facility] [id number]) OT- Subjective Occupational Therapy Visit Type Type Initial Evaluation Visit Start Time 14:00 Visit Stop Time 14:20 Total Visit Minutes 20 Notes Limited eval due to pt to have a swallow study. Occupational Therapy Visit Comments Patient Comments Pt agreed to try to get up. OT Pain Assessment Pain When Pain Assessed At Rest Pain Present Pain Present Pain Reported M4 OT- IP ADL's Start: 03/26/23 14:23 Freq: Status: Active Protocol: Document 03/26/23 14:00 [facility] (Rec: 03/26/23 14:48 [facility] [id number]) OT VPT-Wrol-Exoyyrf Comments OT Self-Feeding Comments Not at meal time. OT ADL-Grooming Comments OT Grooming Comments Not performed. OT ADL-Oral Care Comments Oral Care Comments Pt to be getting a swallow study. OT ADL-Dressing General Eval Upper Body Dressing Ability Maximum Assistance Lower Body Dressing Ability Total Assistance Comments OT Dressing Comments Pt not able to use the RUE at this time due to swelling and decreased AROM and stiffness. OT ADL-Toileting Comments OT Toileting Comments Pt is dependent at this time. OT ADL-Bathing Comments OT Bathing Comments Sponge bath more appropriate at this time. M5 OT- IP IADL's Start: 03/26/23 14:23 Freq: Status: Active Protocol: Document 03/26/23 14:00 [facility] (Rec: 03/26/23 14:48 [facility] [id number]) OT-Instrumental Activities of Daily Living Home Safety Awareness Home Safety Comments Pt having difficulty to follow command and is confused. M6 OT- IP Functional Cognition Start: 03/26/23 14:23 Freq: Status: Active Protocol: Document 03/26/23 14:00 [facility] (Rec: 03/26/23 14:48 [facility] [id number]) Cognitive Factors Limiting Selfcare Function Cognitive Ability Level of Alertness Alert Patient Orientation Name Ability to Follow Commands Able to Follow One Step Commands with Increased Time, Able to Follow One Step Commands with Repetition Cognitive Comments Cognitive Assessment Comments Pt having difficulty to follow commands when asked pt to turn his head to the right in order to see his son. Pt needing step by step commands to follow for log rolling so able to get bonita sling underneath him. OT- Vision and Hearing OT- Vision Assessment Vision Assessment Comments Unable to fully assess due to pt's difficulty to follow commands. Pt having difficulty to follow commands to turn his head/eyes so able to see his son. Pt also not aware that his son was in the room even though just talking to him. M7 OT- IP Mobility and Balance Start: 03/26/23 14:23 Freq: Status: Active Protocol: Document 03/26/23 14:00 [facility] (Rec: 03/26/23 14:48 [facility] [id number]) OT- Bed Mobility Assessment Rolling Type of Rolling Bilateral Level of Assistance Total Assistance,2 Person Assistance OT-Transfer Assessment Transfers Transfer Ability Total Assistance,2 Person Assistance Comments Mobility Comments At this time pt not able to follow commands well and having difficulty to lift his legs up R > L while supine in bed and best determined to use bonita lift to get pt up for his swallow study. Pt heavily leans to the left. . OT- Balance Assessment Sitting Balance and Reactions Static Sitting Balance Ability Poor Dynamic Sitting Balance Ability Poor M8 OT- IP Objective Assessments Start: 03/26/23 14:23 Freq: Status: Active Protocol: Document 03/26/23 14:00 [facility] (Rec: 03/26/23 14:48 [facility] [id number]) OT Gross Range of Motion Upper Extremity Range of Motion Assessment Right Impaired OT Strength Upper Extremity Strength Assessment Right Impaired Comments Strength Comments Right hand swollen and not able to move his right arm during bed mobility needs at this time. M9 OT- IP Assessment and Plan Start: 03/26/23 14:23 Freq: Status: Active Protocol: Document 03/26/23 14:00 [facility] (Rec: 03/26/23 14:48 [facility] [id number]) OT Summary Assessment and Plan Potential Rehabilitation Potential Fair Analytic Complexity at Evaluation High Summary OT Impairments Pain,Range of Motion,Strength, Balance,Functional Cognition, Functional Mobility,Self- Feeding,Grooming,Dressing, Toileting,Bathing,Toilet Transfers,Shower Transfers, Activity Tolerance Progress Towards Goals Slow Progress due to Pain,Slow Progress due to Medical Issues,Slow Progress due to Activity Tolerance,Slow Progress due to Cognition Assessment Summary Pt high complexity and limited OT eval as pt having to go for a swallow study. Pt leaning heavily to the right and decreased awareness of midline. Pt not able to follow command to look to his right in order to see his son. Pt is far form his baseline as prior lived alone and his son and DIL would just check him daily. Goals Self-Feeding Goal Standby Assistance Grooming Goal Standby Assistance Dressing Goal Minimal Assistance Toileting Goal Minimal Assistance Bathing Goal Moderate Assistance Toilet Transfer Goal Minimal Assistance Shower Transfer Goal Moderate Assistance Days to Meet Goals 30 Frequency of Treatment Frequency Of Treatment Once a Day Treatment Plan OT Treatment Plan ADL Training,Functional Cognition Training,Functional Mobility,Patient/Family Education,Discharge Planning Other Treatment Recommendations and Next Pt to sit at edge of bed with Treatment Focus MOD A X1 and be able to do grooming needs with MODA. Discharge Recommendations OT Discharge Recommendations SNF Rehab Transportation Needs at Discharge Stretcher/Ambulance
--- NOTE | 2023-03-26 16:00 | CM.DPC ---
DCP cont: Patient is a 82 yo M here for rhabdomyolysis and parkinson's. Patient's Parkinson's is currently unregulated with medication due to client experiencing visual hallucinations with previous medication. As of today patient is INPT status, patient failed swallow test and barium swallow. CM team entered room and introduced self and role to patient and son/ANDERSON Flores ([phone]). Patient was actively being helped back into bed by nursing staff at time of visit. Earlier in day, patient gave us verbal permission to speak with son. Son and CM team left room and conversed in waiting area in order to speak in a quieter area and to allow patient to rest. Son had questions regarding SNF/JAIL/snf caregivers/home health, what was covered with insurance, jose, and what family's role was in d/c. CM team provided resources and education on what was covered with Medicare, observation versus inpatient status and how status impacts coverage, and other additional senior resources in the area via the Senior resources pamphlet. Son reported updated information on patient's baseline level of functioning. Son reported that he believes patient has lost 20lbs within the past few months and often refuses the meals or groceries that son brings over for him. Son reports that patient is drooling more frequently and often struggles to clear his throat to speak. Son reports that while patient has a walker/canes, patient often refuses to use them. Son reported that as far as he can tell, patient spends most of his time watching TV with his dog (Khalida). 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 Son and (patient's DIL) were looking into private caregivers ([facility]) prior to patient's fall that resulted in hospitalization. During this conversation, Dr. Nichols entered waiting area to communicate to son that patient failed Barium swallow screening. Dr. Nichols updated son on what this could mean for future care and d/c. Upon reviewing the advanced directive that patient signed in 2002, patient clearly states in writing he does not want a feeding tube, would prefer to pass at home, and other additional specifics regarding his care. P: Pending on patient prognosis. Son will reach out to brother jenni to update him and request he come to area to assist family with decision making/prepare for comfort care. Plan 1) Left note for JEFF/Jeanine to send clinicals to [facility] in AM on 03-27. Unclear at this time if patient will need SNF or possibly hospice, pending progress overnight. Plan 2) Home with HH vs. home with hospice? YVONNE
[2023-03-26] MEDS: CARBIDOPA-LEVODOPA 25/100 TABLET 1 EACH PO ×2 (16:12→21:01)
--- NOTE | 2023-03-26 17:29 | ST.SWALLOW ---
Visit Care Team Role Provider Type Jagjit Chandra MD Primary Care Provider Non-Staff Specialty: Internal Medicine Address: [facility] [address], [place], [address] Email: Onesimo Mckeon DO Emergency Provider Physician Referring Provider Specialty: Emergency Medicine Address: [address] [place] [address], [address] Email: [email or web address] Admit Provider Physician Attending Provider Specialty: Internal Medicine Address: [address] [place] [address], [address] Email: [email or web address] Modified Barium Swallow Study EMR SPECIALIST Modified Barium Swallow Study Start: 03/26/23 16:41 Freq: Status: Active Protocol: Document 03/26/23 16:41 [facility] (Rec: 03/26/23 17:23 [facility] [id number]) Modified Barium Swallow Study Total Time Visit Start Time 14:00 Visit Stop Time 14:30 Total Visit Minutes [address] Nichols Reason for Referral dyaphagia Setting Setting Acute Care Patient Information Identification Type Name,ID Wristband Patient History Mohan Roberts is an 82-year-old male with past medical history of Parkinson's disease not on Sinemet and HTN who presents after fall at home and lying on the ground all night. Patient states he lives alone in a trailer and uses a walker to ambulate. Last night while attempting to put on pants, he tripped and landed face first.Pt admitted to AC. This morning nursing reported that pt appeared to have aspirated on breakfast. Pt then placed NPO status pending swallow evaluation Subjective Observations When discussing with nursing the reported aspiration this morning and gurgly breathing with a very weak cough, this EMR SPECIALIST + felt that an MBSS was in order as the pharyngeal phase of pt's swallow needed an instrumental assessmnet to better evaluate the pt's risk for aspiration. Patient Positioning Position View Lateral Imaging Lateral View Textures Administered Trials Presented Thin Liquid via Spoon (IDDSI 0 ),Mildly Thick Liquid via Spoon (IDDSI 2),Mildly Thick Liquid via Cup (IDDSI 2) Barium Tablet No The IDDSI Framework Protocol: IDDSI.1 Oral Impairment Source: The Modified Barium Swallow Impairment Profile (MBSImP??) Lip Closure Escape beyond mid-chin Tongue Control During Bolus Hold Posterior escape of less than half of bolus Bolus Transport/Lingual Motion Repetitive/disorganized tongue motion Oral Residue Trace residue lining oral structures Location Tongue Initiation of Pharyngeal Swallow Bolus head at pyriforms Additional Oral Impairment Observations OME indicated significantly reduced strength, speed, and ROM of oral structures. Tremor present upon initiaion of movement. Significant overall oral weakness observed . ORAL PHASE Pt was observed to hold the teaspoonsful of barium ( thin and nectar thick )within the oral cavity with minimal leakage pre-swallow. Premature spillage of barium was observed with the cup sip (e.g., larger bolus of the barium) trial. No trials of solids were attepted due to high aspiration risk. Unable to assess mastication. Pharyngeal Impairment Source: The Modified Barium Swallow Impairment Profile (MBSImP??) Soft Palate Elevation No bolus between soft palate & pharyngeal wall Laryngeal Elevation Part.sup.move.thyroid cart/ part.approx.arytenoids to epiglot.petiole Anterior Hyoid Excursion Partial anterior movement Epiglottic Movement No inversion Laryngeal Vestibular Closure None; wide column air/contrast in laryngeal vestibule Pharyngeal Stripping Wave Present - diminished Pharyngoesophageal Segment Opening Partial distention/partial duration; partial obstruction of flow Tongue Base Retraction Wide column of contrast/air betwn tongue base & post. pharyngeal wall Pharyngeal Residue Collection of residue within/ on pharyngeal structures Location Diffuse (>3 areas) Additional Pharyngeal Impairment Limited base of tongue Observations strength and hyolaryngeal elevation negatively impacted epiglottic inversion. The epiglottis did not invert and therefore resulted in poor laryngeal seal. Penetration was observed x5 with johanna aspiration observed x3. Pt demonstrated a weak, nonproductive cough with contrast observed within the larynx, on and below the vocal folds as well as in the trachea below the folds (PAS8) . All aspiration was silent, without reflexive cough. Following the liquid trials ( thin and nectar thick liquids) , the MBSS was stopped due to pt's high aspiration risk. Pt was very 'gurgly with wet breathing so suctioning was done to clear secretions. A/P View The IDDSI Framework Protocol: IDDSI.1 Clinical Impressions Dysphagia Type Oral,Pharyngeal Rehabilitation Potential Fair Recommendations Diet Diet Order NPO Medication Recommendation Other Comments Sinemet to be cruches in carrier with all amount of COLD applesauce Additional Dietary Needs 1:1 Assistance Aspiration Precautions Recommended Precautions Upright at 90 Degrees Additional Precautions Small amount of COLD apple sauce to carry crushed sinemet ONLY Treatment Plan Therapy Recommendations Inpatient Speech Therapy Recommended Referrals Neurology Additional Strategies Recommended Currently, only PO intake is Sinemet in a carrier Short Term Goals Dysphagia goals to be determined after trial of Sinemet for Parkinson's Disease Placement Recommendation After Discharge Long-Term Facility,[facility] Care Facility,Home with Hospice Additional Recommendations/Comments Outcome is dependent on effects of Sinemet at this time
--- NOTE | 2023-03-26 17:42 | ST.IPDYTX ---
Visit Care Team Role Provider Type Jagjit Chandra MD Primary Care Provider Non-Staff Specialty: Internal Medicine Address: [facility] [address], [place], [address] Email: Onesimo Mckeon DO Emergency Provider Physician Referring Provider Specialty: Emergency Medicine Address: [address] [place] [address], [address] Email: [email or web address] DO Admit Provider Physician Attending Provider Specialty: Internal Medicine Address: [address] [place] [address], [address] Email: [email or web address] Dysphagia Treatment TROPHY ASSEMBLER Dysphagia Treatment Start: 03/26/23 16:41 Freq: Status: Active Protocol: Document 03/26/23 17:31 [facility] (Rec: 03/26/23 17:42 [facility] [id number]) Dysphagia Treatment Session Time Visit Start Time 15:35 Visit Stop Time 16:05 Total Visit Minutes 30 Setting Assessment Location Acute Care Visit Type Note Type Treatment Note Next Note Type Next Note Type Re-Evaluation Patient Information Identification Type Name,ID Wristband Subjective Observations This TROPHY ASSEMBLER received request from MD to assist with PO trial of pt's Sinemet for parkinson's. Pt failed MBSS earlier today; however, the Sinemet can only be administered PO. Treatment Solids Trialed Puree Administration Type Tea Spoon Oral Strategies Upright at 90 degrees,Double Swallow,Other Pharyngeal Strategies Sitting Upright (90 deg),Small Bites and Sips Additional Dysphagia Treatment Pt needed to be suctioned Strategies prior to the medication Treatment Activities PO. Suggested crushing medication in Cold applesauce in order for the pt to receive his medication. Based on the initial 2 swallows in the MBSS, the pt was able to swallow small teaspoonsful without aspirating. Prior to administering medication pt's oropharynx was wet with an unproductive cough. This TROPHY ASSEMBLER suctioned secretions successfully. Pt was given Sinemet crushed in applesauce (COLD). Voice following medication was clear without wet vocal quality. Assessment Patient Response to Treatment Good Rehab Potential Good Diet Recommendations Comment Continue with POC Liquids Order Nothing by Mouth Medication Recommendations Crushed in Carrier Comments COLD carrier for increased sensory stimulation Aspiration Precautions Recommended Precautions Upright at 90 Degrees,Small Bites/Sips Additional Precautions Remain upright x 15-20 minutes Treatment Plan Appropriate for Continued Therapy Yes Therapy Recommendations Therapeutic goals are currently dependent on pt response to medication Follow Up Plan daily 1-2x Referrals/Other Recommended Referrals Neurology
[2023-03-26 20:00] VITALS: BP 151/73; PULSE 93; RESP 16; TEMP 36.1; O2SAT 93
[2023-03-27 04:00] VITALS: BP 127/77; PULSE 80; RESP 15; TEMP 36.7; O2SAT 95
--- NOTE | 2023-03-27 05:26 | PC.NURSE ---
Pt slept most of shift, no complaints of pain or discomfort. Heart sounds regular, denies chest pain. Lungs clear, diminished at bases, pt on RA sat at 93.
[2023-03-27 06:31] LABS: Add Manual Diff / Slide Review NO; Basophils Absolute Auto 0 /uL (0-100); Basophils Percent Auto 0.3 % (0-2); Eosinophils Absolute Auto 0 /uL (0-450); Eosinophils Percent Auto 0.2 % (2-4); Hemoglobin 14.8 g/dL (13.5-17.5); Lymphocytes Absolute Auto 1200 /uL (1100-4500); Lymphocytes Percent Auto 10.5 % (25-40); Mean Corpuscular HGB Conc 35.2 % (30-36); Mean Corpuscular Hemoglobin 33.3 PG (26-34); Mean Corpuscular Volume 94.5 fL (80-100); Monocytes Absolute Auto 1000 /uL (0-900); Monocytes Percent Auto 8.3 % (3-14); Neutrophils Absolute Auto 9300 /uL (1500-7000); Neutrophils Percent Auto 80.7 % (50-75); Platelet Count 153 X10^3/uL (150-400); Red Blood Cell Count 4.44 X10^6/uL (4.5-5.9); Red Cell Distribution Width 13.6 % (11.6-14.8); White Blood Cell Count 11.6 X10^3/uL (4.5-11.0)
[2023-03-27 06:45] LABS: Alanine Aminotransferase 25 IU/L (<50); Albumin 3.1 g/dL (3.5-5.0); Albumin Globulin Ratio 1.2 (1.0-2.8); Alkaline Phosphatase 46 U/L (38-126); Aspartate Aminotransferase 249 IU/L (17-59); BUN Creatinine Ratio 45.9 (6-22); Bilirubin Total 1.7 mg/dL (0.2-1.3); Blood Urea Nitrogen 28 mg/dL (9-20); Calcium 8.1 mg/dL (8.4-10.2); Carbon Dioxide 27 mmol/L (22-32); Chloride 111 mmol/L (98-107); Estimated Glomerular Filt Rate > 60 mL/min (>60); Globulin 2.5 g/dL (1.7-4.1); Glucose 139 mg/dL (80-110); HEMOLYSIS < 15 (0-50); Potassium 3.3 mmol/L (3.4-5.1); Sodium 143 mmol/L (137-145); Total Protein 5.6 g/dL (6.3-8.2)
[2023-03-27 07:21] LABS: Creatine Kinase 7701 U/L (55-170)
[2023-03-27 08:00] VITALS: BP 148/68; PULSE 71; RESP 17; TEMP 36.6; O2SAT 99
[2023-03-27] MEDS: CARBIDOPA-LEVODOPA 25/100 TABLET 1 EACH PO ×3 (08:43→21:07)
[2023-03-27] MEDS: ENOXAPARIN 40 MG/0.4 ML SYRINGE SUBCUT (08:44)
--- NOTE | 2023-03-27 10:08 | ST.IPDYTX ---
Visit Care Team Role Provider Type Jagjit Chandra MD Primary Care Provider Non-Staff Specialty: Internal Medicine Address: [facility] [address], [place], [address] Email: Onesimo Mckeon DO Emergency Provider Physician Referring Provider Specialty: Emergency Medicine Address: [address] [place] [address], [address] Email: [email or web address] DO Admit Provider Physician Attending Provider Specialty: Internal Medicine Address: [address] [place] [address], [address] Email: [email or web address] Dysphagia Treatment HORSE RACING MANAGER Dysphagia Treatment Start: 03/26/23 16:41 Freq: Status: Active Protocol: Document 03/27/23 10:00 [facility] (Rec: 03/27/23 10:08 [facility] [id number]) Dysphagia Treatment Session Time Visit Start Time 15:35 Visit Stop Time 16:05 Total Visit Minutes 30 Setting Assessment Location Acute Care Visit Type Note Type Treatment Note Next Note Type Next Note Type Re-Evaluation Patient Information Identification Type Name,ID Wristband Subjective Observations pt was in bed listening to music. He requested help with putting glasses on bedside table. Pt's voice was clear even laying in bed. Pt did not demonstrate s/sx hallucinations and answered all questions appropriately. Treatment Solids Trialed Puree Administration Type Tea Spoon Oral Strategies Upright at 90 degrees,Double Swallow,Other Pharyngeal Strategies Sitting Upright (90 deg),Small Bites and Sips Additional Dysphagia Treatment Pt needed to be suctioned Strategies prior to the medication Treatment Activities Nursing reported that pt has been receiving PO medications and he appears to be swallowing the meds. Some wet vocal quality noted following medication. OME conducted with noted improvement in ROM and strength of structures. Discussed with MD that a repeat MBSS tomorrow is recommended to determine if pt is safe for PO intake. Assessment Patient Response to Treatment Good Rehab Potential Good Assessment of Improvement Pt's OME demonstrates improvement with movement and strength of oral structures. Pt did not demonstrate hallucinations and was more appropriate in conversation. Diet Recommendations Comment Continue with POC Liquids Order Nothing by Mouth Medication Recommendations Crushed in Carrier Comments COLD carrier for increased sensory stimulation Additional Dietary Needs 1:1 Assistance Aspiration Precautions Recommended Precautions Upright at 90 Degrees,Small Bites/Sips Additional Precautions Remain upright x 15-20 minutes Treatment Plan Placement Recommendation after Discharge Alf Facility,[facility] Care [facility],Home with Hospice Appropriate for Continued Therapy Yes Therapy Recommendations Therapeutic goals are currently dependent on pt response to medication Follow Up Plan daily 1-2x Referrals/Other Recommended Referrals Neurology
--- NOTE | 2023-03-27 10:43 | PT.IPTN ---
Current Diagnoses Rhabdomyolysis (03/25/23) Physical Therapy Treatment Note M2 PT-IP Current Condition Start: 03/25/23 15:46 Freq: NEEDED Status: Active Protocol: Document 03/25/23 14:20 AB (Rec: 03/25/23 16:07 AB [id number]) Physical Therapy Current Condition Current Condition Evaluation Date 03/25/23 Treatment Diagnosis s/p fall; rhabdomyolysis; PD; difficulty in walking Onset Date 03/25/23 M3 PT-IP Subjective Start: 03/25/23 15:46 Freq: NEEDED Status: Active Protocol: Document 03/27/23 10:30 KS (Rec: 03/27/23 12:10 KS [id number]) Subjective Physical Therapy Visit Type Type Treatment Note Visit Start Time 10:30 Visit Stop Time 10:43 Total Visit Minutes 13 Notes co treat w/ OT Number of DIETETIC TECH Visits 1 Physical Therapy Visit Comments Patient Comments pt is agreeable to do PT M4 PT-IP Mobility and Gait Start: 03/25/23 15:46 Freq: NEEDED Status: Active Protocol: Document 03/27/23 10:30 KS (Rec: 03/27/23 12:10 KS [id number]) PT-Bed Mobility Assessment Supine to Sit Supine to Sit Moderate Assistance,1 Person Assistance,2 Person Assistance ,Head of Bed Elevated,Bedrails Scooting Scooting to Edge of Bed Maximum Assistance PT-Transfer Assessment Sit to and From Stand Sit to and from Stand Moderate Assistance,2 Person Assistance,Use of Upper Extremities Equipment Transfer Assistive Device Gait Belt,Front Wheeled Walker Orthotic/Prosthetic Devices or Brace: No Transfers Transfer Destination Chair Transfer Technique Stand Step Pivot Transfer Ability Level of Assist Moderate Assistance,2 Person Assistance,Use of Upper Extremities Comments Mobility Comments Pt in bed upon arrival, DIL in room. Pt able to lift LE while in bed, Mod A x2 for sup <>Sit, Max A for scooting EOB. C/o numbness RUE. Pt able to sit<>stand and ambulate ~3 ft to chair w/ FWW Mod A x2, reports high level of fatigue following transfer. Reveiwed LE exercises including ankle pumps, quad sets, and glute sets. Pt left in chair w/ OT in room. Gait Assessment Gait Gait Assistance Required: Moderate Assistance,2 Person Assist Distance (Feet) 3 Able to Maintain Weight Bearing Status Yes During Gait Assistive Devices Assistive Device Gait Belt,Front Wheeled Walker Orthotic/Prosthetic Devices or Brace: No Gait Deviations General Gait Pattern Decreased Stride Length, Decreased Feet Clearance, Lateral Trunk Lean,Narrow Based Gait,Step-to Gait Factors Limiting Gait Function Factors Limiting Gait Function Decreased Activity Tolerance, Decreased Strength,Difficulty Following Directions, Incoordination,Limited Range of Motion,Pain,Poor Balance, Poor Safety Awareness Comments Gait Comments Limited by quick approach to fatigue. PT-Balance Assessment Sitting Balance and Reactions Static Sitting Balance Ability Fair Dynamic Sitting Balance Ability Poor Standing Balance and Reactions Static Standing Balance Ability Poor Dynamic Standing Balance Ability Poor Device Used FWW M5 PT-IP Objective Assessments Start: 03/25/23 15:46 Freq: NEEDED Status: Active Protocol: Document 03/25/23 14:20 AB (Rec: 03/25/23 16:07 AB [id number]) Orientation Orientation/Cognition Level of Alertness Alert Orientation Name Safety Awareness Decreased Safety Awareness Memory Description Short Term Impaired Gross Range of Motion Lower Extremity ROM Assessment Within Functional Limits Strength Lower Extremity Strength Assessment Within Functional Limits M6 PT-IP Treatment Start: 03/25/23 15:46 Freq: NEEDED Status: Active Protocol: Document 03/27/23 10:30 KS (Rec: 03/27/23 12:10 KS [id number]) Physical Therapy Treatment Exercises Exercises Ankle Pumps,Gluteal Sets,Quad Sets Education Education Provided Safety M7 PT-IP Assessment and Plan Start: 03/25/23 15:46 Freq: NEEDED Status: Active Protocol: Document 03/27/23 10:30 KS (Rec: 03/27/23 12:10 KS [id number]) PT Summary Assessment and Plan Potential Rehabilitation Potential Fair Summary Impairments Pain,ROM,Strength,Balance, Coordination,Sensation,Tone, Cognition,Bed Mobility, Transfers,Gait,Activity Tolerance Progress Towards Goals Slow Progress due to Medical Issues,Slow Progress due to Activity Tolerance Assessment Summary Pt limited by weakness and low activity tolerance, but required less assist overall today, Mod to Max A for bed mobility and Mod A x2 for transfer to chair w/ FWW. PT agreeable to perform LE exercises to promote blood flow and strengthening. He will require SNF to improve strength and functional mobility. Goals Bed Mobility Goal Minimal Assistance Transfer Goal Minimal Assistance,Front Wheeled Walker Gait Goal Minimal Assistance,Front Wheel Walker Gait Distance 50 Other Goals improve bed mobility, transfers and ambulation using 4WW SBA up/down 3 steps B rails SBA Days to Meet Goals 10 Frequency of Treatment Frequency Of Treatment Once a Day Treatment Plan Physical Therapy Treatment Plan Bed Mobility Training,Transfer Training,Gait Training, Therapeutic Exercise,Balance Retraining,Discharge Planning, Hot or Cold Pack,Neuromuscular Re-ed,Coordination Retraining ,Manual Therapy Precautions Other Precautions falls Recommendations To Nursing Amount of Assist Needed 2 Person Assist Discharge Recommendations PT Discharge Recommendations SNF Rehab Transportation Needs at Discharge Wheelchair/Cabulance
--- NOTE | 2023-03-27 10:55 | OT.IP.TRT ---
Current Diagnoses Rhabdomyolysis (03/25/23) Occupational Therapy Treatment Note M2 OT-IP Current Condition Start: 03/26/23 14:23 Freq: Status: Active Protocol: Document 03/26/23 14:00 [facility] (Rec: 03/26/23 14:48 [facility] [id number]) Occupational Therapy Current Condition Current Condition Evaluation Date 03/26/23 Treatment Diagnosis S/p Fall, Rhabdomylysis Diagnosis Onset Date 03/25/23 M3 OT- IP Subjective and Pain Start: 03/26/23 14:23 Freq: Status: Active Protocol: Document 03/27/23 10:43 [facility] (Rec: 03/27/23 11:37 [facility] [id number]) OT- Subjective Occupational Therapy Visit Type Visit Start Time 10:23 Visit Stop Time 10:55 Total Visit Minutes 12 Notes cotxt with PATTERN GRADER CUTTER for mobility needs Occupational Therapy Visit Comments Patient Comments Pt needing encouragement and then agreed to get up. Pt's daughter in law in the room. Patient/Caregiver Goals To get better. OT Pain Assessment Pain When Pain Assessed At Rest Pain Present Pain Present Denied Pain Location R forearm/hand Description Radiating,Throbbing M4 OT- IP ADL's Start: 03/26/23 14:23 Freq: Status: Active Protocol: Document 03/27/23 10:43 [facility] (Rec: 03/27/23 11:37 [facility] [id number]) OT [id number] Comments OT Self-Feeding Comments Pt is NPO at this time. OT ADL-Grooming Comments OT Grooming Comments Pt able to wash his face after set-up and use of lemon swab to help wash his mouth out at this time. 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 OT ADL-Oral Care General Eval Oral Care Ability Standby Assistance Comments Oral Care Comments Use of swab to clean his mouth out with. M5 OT- IP IADL's Start: 03/26/23 14:23 Freq: Status: Active Protocol: Document 03/26/23 14:00 [facility] (Rec: 03/26/23 14:48 [facility] [id number]) OT-Instrumental Activities of Daily Living Home Safety Awareness Home Safety Comments Pt having difficulty to follow command and is confused. M6 OT- IP Functional Cognition Start: 03/26/23 14:23 Freq: Status: Active Protocol: Document 03/27/23 10:43 [facility] (Rec: 03/27/23 11:37 [facility] [id number]) Cognitive Factors Limiting Selfcare Function Cognitive Ability Level of Alertness Alert Patient Orientation Name Ability to Follow Commands Able to Follow One Step Commands OT- Vision and Hearing OT- Vision Assessment Vision Assessment Comments Pt able to better follow directions today as more alert . Pt also able to turn his head to look to the right to see his daughter in law. M7 OT- IP Mobility and Balance Start: 03/26/23 14:23 Freq: Status: Active Protocol: Document 03/27/23 10:43 [facility] (Rec: 03/27/23 11:37 [facility] [id number]) OT-Transfer Assessment Transfers Transfer Ability Moderate Assistance,2 Person Assistance Technique Transfer Destination Bed,Chair Devices Transfer Assistive Devices Gait Belt,Front Wheeled Walker Comments Mobility Comments MODAx2 to stand to FWW assist to help place his right hand on the FWW and able to grossly grasp the FWW. Assist for balance and to help guide the FWW so pt able to get to the recliner. Pt too tired to try to stand again and may benefit from use of right platform walker so better able control the FWW. OT- Balance Assessment Sitting Balance and Reactions Static Sitting Balance Ability Fair Standing Balance and Reactions Static Standing Balance Ability Fair Dynamic Standing Balance Ability Poor Comments Other Balance Tests/Deviations/Treatment Pt still tend to lean to the : right while seated. Pt needing assist for balance when standing to FWW. M8 OT- IP Objective Assessments Start: 03/26/23 14:23 Freq: Status: Active Protocol: Document 03/27/23 10:43 [facility] (Rec: 03/27/23 11:37 [facility] [id number]) OT Strength Comments Strength Comments Pt's right hand still swollen and hot to touch, nursing aware. Educated pt to keep with right arm elevated on a pillow and do gentle AAROM with assist from his left hand . OT Sensation Assessment Comments Summary Comments Pt states decreased sensation and whole right arm feeling numb, M9 OT- IP Assessment and Plan Start: 03/26/23 14:23 Freq: Status: Active Protocol: Document 03/27/23 10:43 [facility] (Rec: 03/27/23 11:37 [facility] [id number]) OT Summary Assessment and Plan Potential Rehabilitation Potential Good Analytic Complexity at Evaluation High Summary OT Impairments Pain,Range of Motion,Strength, Balance,Functional Cognition, Functional Mobility,Self- Feeding,Grooming,Dressing, Toileting,Bathing,Toilet Transfers,Shower Transfers, Activity Tolerance Progress Towards Goals Slow Progress due to Pain,Slow Progress due to Medical Issues,Slow Progress due to Activity Tolerance,Slow Progress due to Cognition Assessment Summary Pt today able to get out of bed with two person assist and MODA X2 to stand to the FWW and transfer to the recliner. Pt still having difficulty to move his right hand/arm due to swelling and educated to keep his right arm elevated while seated in the recliner and to do gentle AROM and AAROM on his hand and fingers. Pt would greatly benefit from skilled rehab. Goals Self-Feeding Goal Standby Assistance Grooming Goal Standby Assistance Dressing Goal Minimal Assistance Toileting Goal Minimal Assistance Bathing Goal Moderate Assistance Toilet Transfer Goal Contact Guard Assistance Shower Transfer Goal Minimal Assistance Days to Meet Goals 29 Frequency of Treatment Frequency Of Treatment Once a Day Treatment Plan OT Treatment Plan ADL Training,Functional Cognition Training,Functional Mobility,Patient/Family Education,Discharge Planning Other Treatment Recommendations and Next Pt to transfer to the [facility] with Treatment Focus MODA X 1 and use of right platform walker. Discharge Recommendations OT Discharge Recommendations SNF Rehab Transportation Needs at Discharge Wheelchair/Cabulance
--- NOTE | 2023-03-27 11:18 | P.PN_ITS ---
Subjective Subjective Interval history: 82 M admitted after a fall with rhabdomyolysis, fall likely in the setting of worsening parkinsonism. CK remains markedly elevated at 7700 today. Also with johanna aspiration yesterday, likely due to parkinsons, though possible encephalopathy with UTI. Attempting reintroduction of sinemet with some improvement today. Plan for reassess with another barium swallow tomorrow per speech therapy and needs continued IV fluids. He feels a bit stronger today, but still markedly weak. R arm remains swollen and painful. Exam Vital Signs (past 8 hours): - 03/27/23 04:00 03/27/23 08:00 Temperature 98.0 F 97.9 F Pulse Rate 80 71 Respiratory Rate 15 17 Blood Pressure 127/77 148/68 H Pulse Oximetry 95 99 Oxygen Flow Rate 0 0 Oxygen Delivery Method Room Air Oxygen Flow Rate 0 Narrative Exam Narrative: GEN: no acute distress, flat affect due to parkinson's HEENT: moist mucous membranes, PERRL NECK: trachea midline, no JVD CV: regular rate and rhythm, no murmurs PULM: clear bilaterally ABD: soft, nontender, nondistended, no organomegaly EXT: right forearm and hand with increased swelling, no erythema, cap refill normal and sensation intact, radial pulse on R +2 NEURO: awake, alert, oriented, no focal deficits Objective Labs 03/27/23 05:54 03/27/23 05:54 Labs: Laboratory Results - last 24 hr 03/27/23 03/27/23 05:54 05:54 WBC 11.6 H RBC 4.44 L Hgb 14.8 Hct 42.0 MCV 94.5 MCH 33.3 MCHC 35.2 RDW 13.6 Plt Count 153 Neut % (Auto) 80.7 H Lymph % (Auto) 10.5 L Clark % (Auto) 8.3 Eos % (Auto) 0.2 L Baso % (Auto) 0.3 Neut # (Auto) 9300 H Lymph # (Auto) 1200 Clark # (Auto) 1000 H Eos # (Auto) 0 Baso # (Auto) 0 Sodium 143 Potassium 3.3 L Chloride 111 H Carbon Dioxide 27 BUN 28 H Creatinine 0.61 L Estimated GFR > 60 BUN/Creatinine Ratio 45.9 H Glucose 139 H Calcium 8.1 L Total Bilirubin 1.7 H AST 249 H ALT 25 Alkaline Phosphatase 46 Total Creatine Kinase 7701 H D Total Protein 5.6 L Albumin 3.1 L Globulin 2.5 Albumin/Globulin Ratio 1.2 [facility] Medical History (Updated 03/25/23 @ 17:48 by Denisse Blackmon RN) Actinic keratosis Arthritis Depression Drooling Erectile dysfunction Essential hypertension Falls frequently Fasting hyperglycemia Former smoker Hypertension Inguinal hernia Lumbar back pain Macrocytosis Normal colonoscopy Osteoarthritis of right hip Parkinsons disease Sebaceous cyst Seborrheic keratosis Surgical History (Updated 03/25/23 @ 17:48 by Denisse Blackmon RN) H/O cataract removal with insertion of prosthetic lens Social History household members: none Smoking Status: Former smoker Assessment & Plan Assessment & Plan narrative: # acute rhabdomyolysis without ASHKAN -CK 11,163, normal kidney function on admit worsened to 17K yesterday. -continue IV fluids and trending CK levels, improved to 7700 today will need continued IV fluids today. # concern for possible aspiration -patient appeared to aspirate on his breakfast on , likely due to parkinsons -CXR shows no pneumonitis -MBS with APPRENTICE/LINEMAN with johanna aspiration initially, will repeat tomorrow. NPO today but okay for Sinemet. Feeding tube likely not desired. # ground level fall and prolonged downtime -accidentally tripped while putting on pants, too weak to get up likely due to parkinson's -continue PT/OT eval with additiona of sinemet -[facility] as will likely need SNF # right forearm and hand swelling -no evidence of compartment syndrome, no fractures on imaging -oxy PRN for pain # elevated LFT's -likely due to rhabdo -monitor # Parkinson's disease -not on sinemet due to hallucinations with it, will need to restart given his mobility and speech restrctions understanding risk of hallucination. -had referral to neurologist placed, but patient didn't want to go -spoke with patient and son on 03/26 about the importance of treating his par kinsons given risk of progressive disease causing falls, aspiration and pneumonia is high. Patient agreed to see neurology as outpatient. # HTN -hold home HCTZ and lisinopril as currently normotensive, may need to restart in a few days with rehydration. Code status is DNR. COVID negative. DVT prophylaxis with Lovenox. Proxy is son Mark. Dispo: likely SNF in 2-3 days when CK improved, also depending on mobility with sinemet, and improvement with swallow. Quality VTE Deep Vein Thrombosis/Pulmonary Embolism Present on Admission: No MIPS - Admit I confirm the patient?s Advance Care Plan is present, Code status is documented, Surrogate decision maker is in patient?s record [If Yes, STOP here]: Yes
[2023-03-27] MEDS: POTASSIUM CHLORIDE IN WATER 10 MEQ/100 ML PIGGYBACK 100 MEQ IV ×4 (11:52→16:58)
--- NOTE | 2023-03-27 13:21 | CM.DPNOTE ---
DCP Note Patient is now inpatient status as of 03.26.23. [facility] SNF has accepted patient for admission Friday if ready medically. PASRR completed in anticipation of SNF upon discharge. Medical plan of care still unfolding as patient has additional swallow study scheduled for tomorrow; currently NPO except for Sinemet in applesauce Attempted to update patient and he was sleeping soundly, will plan to try again w/patient and family later or in the morning 03.28.23 JW
[2023-03-27 15:00] VITALS: BP 165/73; PULSE 68; RESP 17; TEMP 36.3; O2SAT 100
[2023-03-27] MEDS: SODIUM CHLORIDE 0.9% 1,000 ML 125 ML IV (15:14)
[2023-03-27] MEDS: SODIUM CHLORIDE 0.9% FLUSH 10 ML IV (21:07)
[2023-03-27 23:00] VITALS: BP 140/63; PULSE 64; RESP 18; TEMP 36.3; O2SAT 97
[2023-03-28] MEDS: SODIUM CHLORIDE 0.9% 1,000 ML 125 ML IV ×2 (02:12→12:12)
--- NOTE | 2023-03-28 05:48 | PC.NURSE ---
Denies any nausea, declined scheduled Zofran. Reported the medicine I got yesterday makes me confused & hallucinate. Will report to day RN to follow up with his doctor. Will monitor.
[2023-03-28 07:00] VITALS: BP 158/65; PULSE 69; RESP 17; TEMP 36.3; O2SAT 98
[2023-03-28 07:52] LABS: Add Manual Diff / Slide Review NO; Basophils Absolute Auto 0 /uL (0-100); Basophils Percent Auto 0.4 % (0-2); Eosinophils Absolute Auto 100 /uL (0-450); Eosinophils Percent Auto 1.3 % (2-4); Hematocrit 37.3 % (41-53); Hemoglobin 13.4 g/dL (13.5-17.5); Lymphocytes Absolute Auto 1000 /uL (1100-4500); Lymphocytes Percent Auto 12.2 % (25-40); Mean Corpuscular HGB Conc 35.8 % (30-36); Mean Corpuscular Hemoglobin 33.7 PG (26-34); Monocytes Absolute Auto 600 /uL (0-900); Monocytes Percent Auto 7.6 % (3-14); Neutrophils Absolute Auto 6400 /uL (1500-7000); Neutrophils Percent Auto 78.5 % (50-75); Platelet Count 158 X10^3/uL (150-400); Red Blood Cell Count 3.97 X10^6/uL (4.5-5.9); Red Cell Distribution Width 13.2 % (11.6-14.8); White Blood Cell Count 8.1 X10^3/uL (4.5-11.0)
[2023-03-28 08:07] LABS: Alanine Aminotransferase 27 IU/L (<50); Albumin 2.8 g/dL (3.5-5.0); Albumin Globulin Ratio 1.1 (1.0-2.8); Alkaline Phosphatase 50 U/L (38-126); Aspartate Aminotransferase 161 IU/L (17-59); BUN Creatinine Ratio 48.1 (6-22); Bilirubin Total 1.5 mg/dL (0.2-1.3); Blood Urea Nitrogen 26 mg/dL (9-20); Calcium 7.4 mg/dL (8.4-10.2); Carbon Dioxide 24 mmol/L (22-32); Chloride 113 mmol/L (98-107); Estimated Glomerular Filt Rate > 60 mL/min (>60); Globulin 2.5 g/dL (1.7-4.1); Glucose 102 mg/dL (80-110); Potassium 3.2 mmol/L (3.4-5.1); Sodium 143 mmol/L (137-145); Total Protein 5.3 g/dL (6.3-8.2)
[2023-03-28 08:30] LABS: Creatine Kinase 4483 U/L (55-170); HEMOLYSIS 16 (0-50)
[2023-03-28] MEDS: CARBIDOPA-LEVODOPA 25/100 TABLET 1 EACH PO ×3 (08:57→20:47)
[2023-03-28] MEDS: ENOXAPARIN 40 MG/0.4 ML SYRINGE SUBCUT (08:57)
[2023-03-28] MEDS: SODIUM CHLORIDE 0.9% FLUSH 10 ML IV ×4 (08:59→23:00)
--- NOTE | 2023-03-28 10:00 | DI.RAD.S_ITS ---
PROCEDURE: [place] BARIUM SWALLOW W SPEECH INDICATIONS: DIFFICULTY SWALLOWING COMPARISON: TECHNIQUE: Examination was conducted in conjunction with speech pathology per standard protocol. In the lateral projection, filming was performed of the patient swallowing. AP projection filming may also be performed with patient swallowing. COMPARISON: [facility], , [place] BARIUM SWALLOW W SPEECH, 03/26/2023, 14:30. FINDINGS: Function: The oral preparatory phase appears normal, with proper containment. The subsequent oral propulsive phase, pharyngeal phase, and esophageal phase of swallowing also appear normal with all proffered substances. There is laryngotracheal penetration and aspiration. 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 Morphology: No cricopharyngeal bar is identified. No cervical esophageal webs. No Zenker's diverticulum. No strictures. IMPRESSION: 1. Laryngeal tracheal penetration and aspiration are again demonstrated. 2. Pathological pedicular pooling. Dictated by: Alcides Short M.D. on 03/28/2023 at 11:58 Approved by: Alcides Short M.D. on 03/28/2023 at 12:00
[2023-03-28] MEDS: POTASSIUM CHLORIDE IN WATER 10 MEQ/100 ML PIGGYBACK 100 MEQ IV ×4 (11:49→18:47)
--- NOTE | 2023-03-28 11:53 | CM.DPC ---
Addendum entered by ALEXANDRU Hurst 03/28/23 14:00: ADD: Per , pt's Barium Swallow returned and pt making improvements but recommendation is further swallow eval likely Mon as pt making improvements with his Parkinson's meds and mentation. Pt likely here through the weekend. NING faxed updated MD note and d/c timeline to Altagracia at [facility] for update and BELKIS Solorzano kindly cancelled [facility] transport for tomorrow. ALEXANDRU Hurst Original Note: DCP SNF Planning: Per , pt seems to continue improving with his mentation and more alert today and was off the floor for Barium Swallow and awaiting those results. SW met bedside with pt and explained role and he confirms he feels SNF still needed at d/ and SW updated on acceptance at [facility] when medically stable and pt agreeable and SW inquired if he was comfortable with SW calling his son Mark to update as well and pt confirms he is agreeable. NING called son Mark and updated on above and he is currently at pt's home and getting it set up for pt's eventual return after SNF and other son is present with him as well. Mark aware pt MAY be stable for d/c to SNF tomorrow Sat if stable and aware still waiting results of Barium Swallow. Mark confirms he remains agreeable to [facility] as well at d/c. Mark will be beside around 1300 today for updates on Barium Swallow. NING called [facility] admissions Altagracia and updated on above and she confirms they can accept pt this weekend and pt may be stable tomorrow Sat and confirms their facility van not available but her admin approved cost of cabulance if pt discharges this weekend and Altagracia confirms transport around 1300 tomorrow Sat would work well. BELKIS Solorzano kindly called [facility] and they have pt slotted for 1300 and will bring w/c and pt currently not on oxygen and they are just confirming they can bill [facility] for the cost and will return call. Plan: SW to follow closely for Barium Swallow Results and plan of possible d/c to [facility] tomorrow Sat via [facility] at 1300 if medically stable. ALEXANDRU Hurst
[2023-03-28] MEDS: MORPHINE 2 MG/ML INJ IV (11:54)
[2023-03-28 12:00] VITALS: BP 135/68; PULSE 75; RESP 17; TEMP 36.9; O2SAT 90
--- NOTE | 2023-03-28 13:00 | DI.RAD.S_ITS ---
PROCEDURE: XR CHEST 1V INDICATIONS: POST MBS ASPIRATION STATUS TECHNIQUE: One view of the chest was acquired. COMPARISON: [facility], CR, XR CHEST 1V, 03/26/2023, 9:09. FINDINGS: Surgical changes and devices: None. Lungs and pleura: Left basilar atelectasis. No pleural effusions or pneumothorax. Mediastinum: Mediastinal contours appear normal. Heart size is normal. Bones and chest wall: No suspicious bony lesions. Overlying soft tissues appear unremarkable. IMPRESSION: Left basilar atelectasis. Dictated by: Alcides Short M.D. on 03/28/2023 at 13:37 Approved by: Alcides Short M.D. on 03/28/2023 at 13:38
--- NOTE | 2023-03-28 13:11 | PT-IP ANOTE ---
Patient refused PT, stating he doesn't feel up for it today. PT educated patient on importance of participation in therapy during hospital stay to reduce effects of prolonged immobilization, patient continued to refuse. RN notified.
--- NOTE | 2023-03-28 13:17 | PM.PN.1 ---
Subjective Subjective Interval history: 82 M admitted after a fall with rhabdomyolysis, fall likely in the setting of worsening parkinsonism. CK remains elevated but improving today. Also with johanna aspiration on MBS today still, speech recommending repeat on Friday as his cognition and function seems to be slowly improving today with sinemet. Exam Vital Signs (past 8 hours): - 03/28/23 07:00 03/28/23 12:00 Temperature 97.3 F L 98.5 F Pulse Rate 69 75 Respiratory Rate 17 17 Blood Pressure 158/65 H 135/68 Pulse Oximetry 98 90 L Oxygen Flow Rate 0 0 Oxygen Delivery Method Room Air Oxygen Flow Rate 0 Narrative Exam Narrative: GEN: no acute distress, flat affect due to parkinson's HEENT: moist mucous membranes, PERRL NECK: trachea midline, no JVD CV: regular rate and rhythm, no murmurs PULM: clear bilaterally ABD: soft, nontender, nondistended, no organomegaly EXT: right forearm and hand with increased swelling, no erythema, cap refill normal and sensation intact, radial pulse on R +2 NEURO: awake, alert, oriented, no focal deficits Objective Labs 03/28/23 07:25 03/28/23 07:25 Labs: Laboratory Results - last 24 hr 03/28/23 03/28/23 07:25 07:25 WBC 8.1 RBC 3.97 L Hgb 13.4 L Hct 37.3 L MCV 94.0 MCH 33.7 MCHC 35.8 RDW 13.2 Plt Count 158 Neut % (Auto) 78.5 H Lymph % (Auto) 12.2 L Oxford % (Auto) 7.6 Eos % (Auto) 1.3 L Baso % (Auto) 0.4 Neut # (Auto) 6400 Lymph # (Auto) 1000 L Oxford # (Auto) 600 Eos # (Auto) 100 Baso # (Auto) 0 Sodium 143 Potassium 3.2 L Chloride 113 H Carbon Dioxide 24 BUN 26 H Creatinine 0.54 L Estimated GFR > 60 BUN/Creatinine Ratio 48.1 H Glucose 102 Calcium 7.4 L Total Bilirubin 1.5 H AST 161 H ALT 27 Alkaline Phosphatase 50 Total Creatine Kinase 4483 H D Total Protein 5.3 L Albumin 2.8 L Globulin 2.5 Albumin/Globulin Ratio 1.1 [facility] Medical History (Updated 03/25/23 @ 17:48 by Denisse Blackmon RN) Actinic keratosis Arthritis Depression Drooling Erectile dysfunction Essential hypertension Falls frequently Fasting hyperglycemia Former smoker Hypertension Inguinal hernia Lumbar back pain Macrocytosis Normal colonoscopy Osteoarthritis of right hip Parkinsons disease Sebaceous cyst Seborrheic keratosis Surgical History (Updated 03/25/23 @ 17:48 by Denisse Blackmon RN) H/O cataract removal with insertion of prosthetic lens Social History household members: none Smoking Status: Former smoker Assessment & Plan Assessment & Plan narrative: # acute rhabdomyolysis without ASHKAN -CK 11,163, normal kidney function on admit worsened to 17K on HD#1, -continue IV fluids and trending CK levels, improved to 4483 today will need continued IV fluids today until CK is <500. # concern for possible aspiration -patient appeared to aspirate on his breakfast on , likely due to parkinsons -CXR shows no pneumonitis -MBS with JUNIOR PROJECT MANAGER with johanna aspiration initially and on repeat today but improving clincally on Sinemet. Will repeat again on Friday. Feeding tube likely not desired. # ground level fall and prolonged downtime -accidentally tripped while putting on pants, too weak to get up likely due to parkinson's -continue PT/OT eval with addition of sinemet # right forearm and hand swelling -no evidence of compartment syndrome, no fractures on imaging. Will check ultrasound to rule out DVT of RUE. -oxy PRN for pain # elevated LFT's -likely due to rhabdo and has been improving. -monitor # Parkinson's disease -not on sinemet due to hallucinations with it, will need to restart given his mobility and speech restrctions understanding risk of hallucination. -had referral to neurologist placed, but patient didn't want to go -spoke with patient and son on 03/26 about the importance of treating his parkinsons given risk of progressive disease causing falls, aspiration and pneumonia is high. Patient agreed to see neurology as outpatient. # HTN -hold home HCTZ and lisinopril as currently normotensive, may need to restart in the coming days with rehydration. #hypokalemia - repleted with IV, continue to trend Code status is DNR. COVID negative. DVT prophylaxis with Lovenox. Proxy is son Mark. Dispo: likely SNF in 2-3 days when CK improved, also depending on mobility with sinemet, and improvement with swallow. Quality VTE Deep Vein Thrombosis/Pulmonary Embolism Present on Admission: No
--- NOTE | 2023-03-28 13:18 | CM.DPNOTE ---
Addendum entered by Jeanine Theodore 03/28/23 14:02: Called [facility] to cancel the 1300 transport for Friday due to pt. needs to be here until Friday. Jeanine Theodore CM [employer]. Original Note: Called [facility] and arranged brick picker for patient on Friday, 1300 per Suly. Rainy confirmed they could bill [facility] for transport. I asked to have a wheel chair also. She may call to change time of pickup and I gave her the [phone] number. Jeanine Theodore CM Assist.
--- NOTE | 2023-03-28 13:21 | DI.US.S_ITS ---
PROCEDURE: US PERIPH VENOUS UP EXTREM RT INDICATIONS: Right arm swelling, please evaluate for DVT TECHNIQUE: Real-time imaging, as well as color and pulse Doppler interrogation, was performed of the right upper extremity deep veins from the inferior neck to the antecubital fossa. COMPARISON: [facility], CR, XR CHEST 1V, 03/28/2023, 12:45. FINDINGS: The internal jugular vein, visualized portions of the subclavian vein, axillary, and brachial veins are free of intraluminal thrombus. Where physically possible, the veins are normally compressible. Color and pulse Doppler demonstrate normal intraluminal flow, with expected phasicity and pulsatility. Soft tissue swelling is seen, which limits evaluation of superficial veins. However, no findings of superficial venous thrombosis can be seen. IMPRESSION: Negative for deep venous thrombosis. Dictated by: Prieto Salvador M.D. on 03/28/2023 at 13:47 Approved by: Prieto Salvador M.D. on 03/28/2023 at 13:48
--- NOTE | 2023-03-28 14:15 | ST.SWALLOW ---
Visit Care Team Role Provider Type Jagjit Chandra MD Primary Care Provider Non-Staff Specialty: Internal Medicine Address: [facility] [address], [place], [address] Email: Onesimo Mckeon DO Emergency Provider Physician Referring Provider Specialty: Emergency Medicine Address: [address] [place] [address], [id number] Email: [email or web address] Raheel Nichols DO Admit Provider Physician Attending Provider Specialty: Internal Medicine Address: [address] [place] [address], [address] Email: [email or web address] Modified Barium Swallow Study [facility] Modified Barium Swallow Study Start: 03/26/23 16:41 Freq: Status: Active Protocol: Document 03/28/23 10:27 BE (Rec: 03/28/23 11:03 BE [id number]) Modified Barium Swallow Study Total Time Visit Start Time 10:00 Visit Stop Time 10:25 Total Visit Minutes [address] Nichols Reason for Referral dyaphagia Setting Setting Acute Care Patient Information Identification Type Name,ID Wristband Patient History Mohan Roberts is an 82-year-old male with past medical history of Parkinson's disease not on Sinemet and HTN who presents after fall at home and lying on the ground all night. Pt reported discontinuing medical treatment for Parkinson's due to hallucinations. Patient states he lives alone in a trailer and uses a walker to ambulate. Last night while attempting to put on pants, he tripped and landed facefirst. Pt admitted to AC. Pt placed NPO following nursing report that pt appeared to have aspirated on breakfast. Initial MBS ordered and completed on 03/26/23 with johanna aspiration across trials . Pt suctioned and trial discontinued following NTL due to aspiration risk. Pt's NPO status extended pending new medication to treat Parkison's , and additional MBS ordered to assess effectiveness and inform swallow status/diet restrictions. Subjective Observations Pt brought to radiology in assessment chair. Mohan reported hallucinations from newly prescribed Parkinson's medication. He agreed to participate in MBS. Patient Positioning Position View Lateral Imaging Lateral View Textures Administered Trials Presented Thin Liquid via Spoon (IDDSI 0 ),Mildly Thick Liquid via Spoon (IDDSI 2),Mildly Thick Liquid via Cup (IDDSI 2), Moderately Thick Liquid via Spoon (IDDSI 3),Extremely Thick Liquid via Spoon (IDDSI 4),Puree (IDDSI 4) Barium Tablet No The IDDSI Framework Protocol: IDDSI.1 Oral Impairment Source: The Modified Barium Swallow Impairment Profile (MBSImP??) Lip Closure Escape from interlab.space/lat .junct.;no ext. beyond vermilion border Tongue Control During Bolus Hold Posterior escape of less than half of bolus Bolus Transport/Lingual Motion Repetitive/disorganized tongue motion Oral Residue Residue collection on oral structures Location Tongue Initiation of Pharyngeal Swallow Bolus head in valleculae Additional Oral Impairment Observations OME indicated reduced strength , speed, and coordination of oral structures. Significant overall oral weakness observed . ORAL PHASE Pt demonstrated difficulty with bolus control and transport (thin, nectar, honey thick) within the oral cavity, with loss to floor of mouth. Premature spillage of barium observed with teaspoon and cup sip (e.g., larger bolus of the barium) trials. Tongue pumping observed across trials. Unable to assess mastication. Pharyngeal Impairment Source: The Modified Barium Swallow Impairment Profile (MBSImP??) Soft Palate Elevation Escape to nasopharynx Laryngeal Elevation Part.sup.move.thyroid cart/ part.approx.arytenoids to epiglot.petiole Anterior Hyoid Excursion Partial anterior movement Epiglottic Movement No inversion Laryngeal Vestibular Closure Incomplete; narrow column air/ contrast in laryngeal vestibule Pharyngeal Stripping Wave Present - diminished Pharyngoesophageal Segment Opening Minimal distension/minimal duration; marked obstruction of flow Tongue Base Retraction Wide column of contrast/air betwn tongue base & post. pharyngeal wall Pharyngeal Residue Majority of contrast within/on pharyngeal structures Location Diffuse (>3 areas) Additional Pharyngeal Impairment Limited base of tongue Observations strength and hyolaryngeal elevation negatively impated epiglottic inversion. The epiglottis did not invert and therefore resulted in poor laryngeal seal. Penetration was observed x17 with johanna aspiration observed x11. Limited trials presented, majority of penetration/ aspiration occurred during cued additional swallows to clear single trial. Pt demonstrated a weak, nonproductive cough with contrast observed within the larynx, on and below the vocal folds as well as in the trachea below the folds (PAS8) . All aspiration was silent, without reflexive cough. Trials discontinued following extremely thick trial due to concerns for aspiration. Bolus became stuck in vallecula due to limited epiglottic inversion, and was not dislodged with cued clearing strategies (cough, growl, effortful swallow) or suction. Recommended pt remain upright following completion of study , with intermittent suctioning to attempt clearance of bolus . Imaging recommended this afternoon to determine airway clearance status. A/P View The IDDSI Framework Protocol: IDDSI.1 Clinical Impressions Dysphagia Type Oral,Pharyngeal Findings Pt presents with severe oropharyngeal dsyphagia, characterized by pervasive reduced strength, coordination and ROM of swallow musculature. Pt shows some improvement in ROM and strength from previous MBS following 24+ hours of Parkinson's medication, but not enough to safely tolerate PO intake. Pt continues to silently aspirate with weak/ unproductive cued cough. Recommended pt remain upright following completion of study today, with intermittent suctioning to attempt clearance of bolus, with imaging recommended this afternoon to determine airway clearance status. Recommend continued NPO diet. Recommend follow-up with speech therapy to provide education regarding swallow impairment and plan of care. Rehabilitation Potential Fair Recommendations Diet Diet Order NPO Medication Recommendation Not Recommended by Mouth Additional Dietary Needs 1:1 Assistance Treatment Plan Therapy Recommendations Inpatient Speech Therapy Recommended Referrals Neurology [facility] Goals Pt will safely tolerate least restrictive to meet hydration and nutrional needs. Placement Recommendation After Discharge Senior Living Facility,[facility] Care Facility,Home with Hospice Additional Recommendations/Comments Outcome is dependent on effects of Sinemet at this time. If Sinemet cannot be administered NPO, recommend crushed in cold puree carrier.
--- NOTE | 2023-03-28 15:03 | OT.IPNOTE ---
Attempted to see for OT services x3 this afternoon. First pt getting midline, then getting ultrasound, then declined services because family present. Will hold today and continue to follow.
[2023-03-28 16:00] VITALS: BP 141/80; PULSE 73; RESP 17; TEMP 36.4; O2SAT 96
--- NOTE | 2023-03-28 20:15 | DI.RAD.S_ITS ---
PROCEDURE: XR CHEST 1V INDICATIONS: pneumonia, aspiration? TECHNIQUE: One view of the chest was acquired. COMPARISON: [facility], CR, XR CHEST 1V, 03/25/2023, 11:42. [facility], CR, XR CHEST 1V, 03/26/2023, 9:09. [facility], CR, XR CHEST 1V, 03/28/2023, 12:45. FINDINGS: Surgical changes and devices: None. Lungs and pleura: On this semiupright portable chest examination, no large pneumothorax or large pleural effusions are seen. No focal infiltrates are seen. The previously seen streaky left lung base opacity is improved compared to the plain film earlier in the day. Mediastinum: The cardiac contours are within normal limits. The aorta demonstrates calcification and tortuosity. Bones and chest wall: No suspicious bony lesions. Degenerative changes are seen, particularly involving shoulders. Overlying soft tissues appear unremarkable. IMPRESSION: No focal infiltrates are seen. Improved opacity at the left lung base, which is attributed to resolving atelectasis. If there is strong clinical concern for developing aspiration pneumonia in this patient, please consider a short term followup examination, as aspiration pneumonia can have a delayed radiographic appearance. Dictated by: Prieto Salvador M.D. on 03/28/2023 at 20:07 Approved by: Prieto Salvador M.D. on 03/28/2023 at 20:09
[2023-03-28 20:20] VITALS: O2SAT 86
[2023-03-28 20:31] VITALS: PULSE 76; RESP 32; O2SAT 95
[2023-03-28] MEDS: PIPERACILLIN/TAZO 4.5 GM in SODIUM CHLORIDE 0.9% 100 ML IV (20:45)
[2023-03-28] MEDS: QUETIAPINE 25 MG TABLET PO (20:47)
[2023-03-28 21:00] VITALS: BP 168/81; PULSE 86; RESP 17; TEMP 37.1; O2SAT 97
[2023-03-28 22:13] LABS: Lactate (Lactic Acid) 1.5 mmol/L (0.7-2.1)
[2023-03-28 22:15] LABS: Alanine Aminotransferase 19 IU/L (<50); Albumin 2.9 g/dL (3.5-5.0); Albumin Globulin Ratio 1.1 (1.0-2.8); Alkaline Phosphatase 48 U/L (38-126); Aspartate Aminotransferase 168 IU/L (17-59); BUN Creatinine Ratio 43.1 (6-22); Bilirubin Total 1.9 mg/dL (0.2-1.3); Blood Urea Nitrogen 25 mg/dL (9-20); Calcium 7.6 mg/dL (8.4-10.2); Carbon Dioxide 24 mmol/L (22-32); Chloride 113 mmol/L (98-107); Estimated Glomerular Filt Rate > 60 mL/min (>60); Globulin 2.6 g/dL (1.7-4.1); Glucose 124 mg/dL (80-110); HEMOLYSIS < 15 (0-50); Potassium 3.3 mmol/L (3.4-5.1); Sodium 143 mmol/L (137-145); Total Protein 5.5 g/dL (6.3-8.2)
[2023-03-28 22:23] LABS: NT-proBNP (BNP-Adult 18+) 1720 pg/mL (<450)
[2023-03-28] MEDS: FUROSEMIDE 20 MG/2 ML VIAL IV (22:39)
[2023-03-28 23:28] LABS: Hematocrit 36.7 % (41-53); Hemoglobin 13.2 g/dL (13.5-17.5); Mean Corpuscular HGB Conc 35.9 % (30-36); Mean Corpuscular Hemoglobin 33.3 PG (26-34); Mean Corpuscular Volume 92.9 fL (80-100); Platelet Count 178 X10^3/uL (150-400); Red Blood Cell Count 3.95 X10^6/uL (4.5-5.9); Red Cell Distribution Width 13.5 % (11.6-14.8); White Blood Cell Count 8.4 X10^3/uL (4.5-11.0)
--- NOTE | 2023-03-29 00:01 | PC.NURSE ---
Pt. asleep checked SPO2 in 4 liters 99%. Turned O2 down to 2 liters & sat. 95-97%. Will cont. POC & monitor.
[2023-03-29] MEDS: SODIUM CHLORIDE 0.9% 250 ML 21 ML IV (03:34)
[2023-03-29] MEDS: SODIUM CHLORIDE 0.9% FLUSH 10 ML IV ×3 (03:34→20:17)
[2023-03-29] MEDS: PIPERACILLIN/TAZO 3.375 GM in SODIUM CHLORIDE 0.9% 100 ML IV ×2 (03:35→12:50)
[2023-03-29 04:30] VITALS: BP 127/73; PULSE 95; RESP 16; TEMP 36.8; O2SAT 95
--- NOTE | 2023-03-29 04:43 | PC.NURSE ---
Coccyx erythema barrier cream applied, inc. of small stool & large amount of urine. Will monitor.
--- NOTE | 2023-03-29 06:51 | PC.NURSE ---
Slept most shift, did not report any hallucination this morning. Midline does not draw any blood , flushed with heparin & saline. Rt. forearm noted 3 blisters & draining. Declined Zofran & Morphine this morning, 2 liters 02 sat. 100%. Room air sat. 99%. Will cont. POC & report to day RN.
[2023-03-29 08:50] LABS: HEMOLYSIS < 15 (0-50); Magnesium 2.1 mg/dL (1.6-2.3); Potassium 3.1 mmol/L (3.4-5.1)
[2023-03-29] MEDS: ENOXAPARIN 40 MG/0.4 ML SYRINGE SUBCUT (09:19)
[2023-03-29] MEDS: CARBIDOPA-LEVODOPA 25/100 TABLET 1 EACH PO ×3 (09:27→20:17)
[2023-03-29 10:34] VITALS: O2SAT 95
--- NOTE | 2023-03-29 11:33 | SLP.IPNOTE ---
Pt is currently NPO after failing two MBSS assessments. BRASS MOLDER spoke with nurse this AM and nurse reported that the pt appears to be tolerating the medication crushed in cold applesauce at this time. Pt cannot participate in PO therapy trials until another MBSS is conducted on Friday. No family was present this morning to discuss any questions/concerns. Continue medication crushed via cold carrier and wait for MBSS to determine diet recommendations and next steps prior to discharge.
--- NOTE | 2023-03-29 11:35 | PT.IPTN ---
Current Diagnoses Rhabdomyolysis (03/26/23) Physical Therapy Treatment Note M2 PT-IP Current Condition Start: 03/25/23 15:46 Freq: NEEDED Status: Active Protocol: Document 03/25/23 14:20 AB (Rec: 03/25/23 16:07 AB [id number]) Physical Therapy Current Condition Current Condition Evaluation Date 03/25/23 Treatment Diagnosis s/p fall; rhabdomyolysis; PD; difficulty in walking Onset Date 03/25/23 M3 PT-IP Subjective Start: 03/25/23 15:46 Freq: NEEDED Status: Active Protocol: Document 03/29/23 11:35 AB (Rec: 03/29/23 12:35 AB [id number]) Subjective Physical Therapy Visit Type Type Treatment Note Visit Start Time 11:35 Visit Stop Time 12:07 Total Visit Minutes 32 Number of UI UX DEVELOPER Visits 0 Physical Therapy Visit Comments Patient Comments agreed to get out of the bed; with confusion M4 PT-IP Mobility and Gait Start: 03/25/23 15:46 Freq: NEEDED Status: Active Protocol: Document 03/29/23 11:35 AB (Rec: 03/29/23 12:35 AB [id number]) PT-Bed Mobility Assessment Supine to Sit Supine to Sit Maximum Assistance,1 Person Assistance,2 Person Assistance ,Head of Bed Elevated,Bedrails Scooting Scooting to Edge of Bed Dependent PT-Transfer Assessment Sit to and From Stand Sit to and from Stand Maximum Assistance,2 Person Assistance,Use of Upper Extremities Equipment Transfer Assistive Device Gait Belt,Front Wheeled Walker Orthotic/Prosthetic Devices or Brace: No Transfers Transfer Destination Chair Transfer Technique Stand Pivot Transfer Ability Level of Assist Maximum Assistance,2 Person Assistance,Use of Upper Extremities Comments Mobility Comments pt with confusion. follows one step commands inconsistently. completed supine to sit with HOB elevated to ~ 70 deg requiring max A x 2. increase posterior trunk lean and lateral lean to the R requiring max A for sitting balance on EOB. completed trunk forward stretching in seated position and was able to sit min A afterwards. completed sit to stand from EOB max A x 1-2 and max cues but with unsteady initial standing with increase posterior trunk leaning and lateral leaning to the R. pt unable to correct despite max A provided. instructed pt to sit down. completed sit to stand again max A x 2 and max cues and pt only able to stand for ~ 7 sec and has to sit back down with increase hip and knee flexion in standing and continues to have increase posterior and lateral trunk leaning. conducted more trunk forward and lateral stretching to the L. pt completed sit to stand again max A x 2 and max cues. requiried max A x 2 for standing balance. pt unable to use much of RUE to assist with supporting in standing and mobility. continue with R forearm/hand edema with drainage. cued for posture and position and pt able to stand a 2-4 sec of only needing min A x 2 but unable to sustain. pt completed pivot transfer to chair using FWW max A x 2 to total Ax 2 and max cues with more dependent transfer towards end of transfer due to increase guarding. positioned pt on the chair. Left pt with NAC. Gait Assessment Comments Gait Comments unable M5 PT-IP Objective Assessments Start: 03/25/23 15:46 Freq: NEEDED Status: Active Protocol: Document 03/25/23 14:20 AB (Rec: 03/25/23 16:07 AB [id number]) Orientation Orientation/Cognition Level of Alertness Alert Orientation Name Safety Awareness Decreased Safety Awareness Memory Description Short Term Impaired Gross Range of Motion Lower Extremity ROM Assessment Within Functional Limits Strength Lower Extremity Strength Assessment Within Functional Limits M6 PT-IP Treatment Start: 03/25/23 15:46 Freq: NEEDED Status: Active Protocol: Document 03/29/23 11:35 AB (Rec: 03/29/23 12:35 AB [id number]) Physical Therapy Treatment Education Education Provided Safety M7 PT-IP Assessment and Plan Start: 03/25/23 15:46 Freq: NEEDED Status: Active Protocol: Document 03/29/23 11:35 AB (Rec: 03/29/23 12:35 AB [id number]) PT Summary Assessment and Plan Potential Rehabilitation Potential Fair Summary Impairments Pain,ROM,Strength,Balance, Coordination,Sensation,Tone, Cognition,Bed Mobility, Transfers,Gait,Activity Tolerance Progress Towards Goals Slow Progress due to Medical Issues,Slow Progress due to Activity Tolerance,Slow Progress - Other Assessment Summary Pt admitted for falls and rhabdomyolysis. pt had dx of parkinson's disease but has started with sinemet but from previous reports, pt has adverse reaction with hallucinations to sinemet. Pt started with seroquel to address side effects of sinemet per hospitalist. Currently, pt presents with confusion but able to follow simple directions but inconsistent and requires constant cues to complete all tasks. pt requiring max A x 2 to total A x 2 with mobility and unable to ambulate today. pt will require SNF rehab to improve mobility. Goals Bed Mobility Goal Minimal Assistance Transfer Goal Minimal Assistance,Front Wheeled Walker Gait Goal Minimal Assistance,Front Wheel Walker Gait Distance 50 Other Goals improve bed mobility, transfers and ambulation using 4WW SBA up/down 3 steps B rails SBA Days to Meet Goals 10 Frequency of Treatment Frequency Of Treatment Once a Day Treatment Plan Physical Therapy Treatment Plan Bed Mobility Training,Transfer Training,Gait Training, Therapeutic Exercise,Balance Retraining,Discharge Planning, Hot or Cold Pack,Neuromuscular Re-ed,Coordination Retraining ,Manual Therapy Precautions Other Precautions falls Recommendations To Nursing Amount of Assist Needed Mechanical Lift Discharge Recommendations PT Discharge Recommendations SNF Rehab Transportation Needs at Discharge Wheelchair/Cabulance
[2023-03-29] MEDS: POTASSIUM CHLORIDE IN WATER 10 MEQ/100 ML PIGGYBACK 100 MEQ IV ×4 (12:47→15:17)
[2023-03-29 13:44] VITALS: BP 139/62; PULSE 68; RESP 17; TEMP 36.4; O2SAT 98
--- NOTE | 2023-03-29 16:58 | PM.PN.1 ---
Subjective Subjective Interval history: 82 M admitted after a fall with rhabdomyolysis, fall likely in the setting of worsening parkinsonism and stopping medications. He has had improvement with fluids and sinemet thus far, but continues to fail swallow evaluations. Overnight became hypoxic, IV fluids were stopped, antibiotics started for possible aspiration but will stop this afternoon as does not appear to have infection. Discussed with family alternatives for different scenarios today, as noted below in A/P. Exam Vital Signs (past 8 hours): - 03/29/23 10:34 03/29/23 13:44 Temperature 97.6 F Pulse Rate 68 Respiratory Rate 17 Blood Pressure 139/62 Pulse Oximetry 95 98 Oxygen Delivery Method Nasal Cannula Oxygen Flow Rate 2 0 Fraction of Inspired Oxygen 28 Fraction of Inspired Oxygen 28 SaO2/FiO2 Ratio 339 Oxygen Delivery Method Nasal Cannula Oxygen Flow Rate 0 Narrative Exam Narrative: GEN: no acute distress, flat affect due to parkinson's HEENT: moist mucous membranes, PERRL NECK: trachea midline, no JVD CV: regular rate and rhythm, no murmurs PULM: clear bilaterally ABD: soft, nontender, nondistended, no organomegaly EXT: right forearm and hand with increased swelling, no erythema, cap refill normal and sensation intact, radial pulse on R +2 NEURO: awake, alert, oriented, no focal deficits Objective Labs 03/28/23 22:55 03/29/23 08:30 Labs: Laboratory Results - last 24 hr 03/28/23 03/28/23 03/28/23 21:51 21:51 22:55 WBC 8.4 RBC 3.95 L Hgb 13.2 L Hct 36.7 L MCV 92.9 MCH 33.3 MCHC 35.9 RDW 13.5 Plt Count 178 Sodium 143 Potassium 3.3 L Chloride 113 H Carbon Dioxide 24 BUN 25 H Creatinine 0.58 L Estimated GFR > 60 BUN/Creatinine Ratio 43.1 H Glucose 124 H Lactate 1.5 Calcium 7.6 L Magnesium Total Bilirubin 1.9 H AST 168 H ALT 19 Alkaline Phosphatase 48 NT-Pro-B Natriuret Pep 1720 H Total Protein 5.5 L Albumin 2.9 L Globulin 2.6 Albumin/Globulin Ratio 1.1 03/29/23 08:30 WBC RBC Hgb Hct MCV MCH MCHC RDW Plt Count Sodium Potassium 3.1 L Chloride Carbon Dioxide BUN Creatinine Estimated GFR BUN/Creatinine Ratio Glucose Lactate Calcium Magnesium 2.1 Total Bilirubin AST ALT Alkaline Phosphatase NT-Pro-B Natriuret Pep Total Protein Albumin Globulin Albumin/Globulin Ratio [facility] Medical History (Updated 03/25/23 @ 17:48 by Denisse Blackmon RN) Actinic keratosis Arthritis Depression Drooling Erectile dysfunction Essential hypertension Falls frequently Fasting hyperglycemia Former smoker Hypertension Inguinal hernia Lumbar back pain Macrocytosis Normal colonoscopy Osteoarthritis of right hip Parkinsons disease Sebaceous cyst Seborrheic keratosis Surgical History (Updated 03/25/23 @ 17:48 by Denisse Blackmon RN) H/O cataract removal with insertion of prosthetic lens Social History household members: none Smoking Status: Former smoker Assessment & Plan Assessment & Plan narrative: # acute rhabdomyolysis without ASHKAN -CK 11,163, normal kidney function on admit worsened to 17K on HD#1, -continue IV fluids and trending CK levels, improved to 4483 yesterday, IV fluids stopped today given hypoxia which has resolved. -continue to follow CK, may need to restart fluids more slowly if CK trends up. # concern for possible aspiration / acute hypoxic respiratory failure no present on admission -patient appeared to aspirate on his breakfast on , likely due to parkinsons -CXR showed no pneumonitis -MBS with SENIOR PLANNER with johanna aspiration initially and on repeat today but improving clincally on Sinemet. Will repeat again on Friday. Feeding tube as noted in discussion below. -overnight 03/28 patient became hypoxic, likely due to volume overload but was started on zosyn empirically. With no fever and normal WBC, improvement in hypoxia with cesssation of fluids have stopped antibiotics given low likelihood of bacterial pneumonia as the etiology. # ground level fall and prolonged downtime -accidentally tripped while putting on pants, too weak to get up likely due to parkinson's -continue PT/OT eval with addition of sinemet # right forearm and hand swelling -no evidence of compartment syndrome, no fractures on imaging.US RUE negative for DVT. -oxy PRN for pain # elevated LFT's -likely due to rhabdo and has been improving. -monitor # Parkinson's disease -not on sinemet due to hallucinations with it, will need to restart given his mobility and speech restrctions understanding risk of hallucination. -had referral to neurologist placed, but patient didn't want to go -spoke with patient and son on 03/26 about the importance of treating his parkinsons given risk of progressive disease causing falls, aspiration and pneumonia is high. Patient agreed to see neurology as outpatient. # HTN -hold home HCTZ and lisinopril as currently normotensive. #hypokalemia - repleted with IV, continue to trend #Advanced care planning - I spent 20 minutes involved with the advanced care planning for this patient, including discussion with patient's family and the patient himself. We discussed the possibilities for Friday, including another failed swallow evaluation. We discussed that if no feeding tube is desired that he would likely be recommended for hospice at that time, but that sinemet could continue to see if there is continued improvement. If feeding is desired that a PEG tube could be considered as well. If he improves slightly there are additional options, including temporary feeding with either NG tube or TPN, along with the first two. The hopeful outcome is that he is able to tolerated adequate oral intake on Friday, and that feeding access question would be avoided completely. He has an advanced directive, but patient appears competent to make decisions at this time and appeared open to the possibility of temporary feeding. I asked them to consider this question further in preparation for Friday. Code status is DNR. COVID negative. DVT prophylaxis with Lovenox. Proxy is son Mark. Dispo: likely SNF when CK improved, also depending on mobility with sinemet, and improvement with swallow. Quality VTE Deep Vein Thrombosis/Pulmonary Embolism Present on Admission: No
[2023-03-29 18:00] VITALS: BP 140/68; PULSE 67; RESP 17; TEMP 36.3; O2SAT 97
[2023-03-29] MEDS: QUETIAPINE 25 MG TABLET PO (20:17)
[2023-03-30 02:39] VITALS: BP 141/76; PULSE 67; RESP 19; TEMP 36.3; O2SAT 96
[2023-03-30 08:18] LABS: Add Manual Diff / Slide Review NO; Basophils Absolute Auto 0 /uL (0-100); Basophils Percent Auto 0.5 % (0-2); Eosinophils Absolute Auto 200 /uL (0-450); Eosinophils Percent Auto 1.8 % (2-4); Hematocrit 38.7 % (41-53); Hemoglobin 13.9 g/dL (13.5-17.5); Lymphocytes Absolute Auto 1300 /uL (1100-4500); Mean Corpuscular Hemoglobin 33.2 PG (26-34); Mean Corpuscular Volume 92.3 fL (80-100); Monocytes Absolute Auto 700 /uL (0-900); Monocytes Percent Auto 7.2 % (3-14); Neutrophils Absolute Auto 7100 /uL (1500-7000); Neutrophils Percent Auto 76.5 % (50-75); Platelet Count 195 X10^3/uL (150-400); Red Blood Cell Count 4.19 X10^6/uL (4.5-5.9); Red Cell Distribution Width 13.5 % (11.6-14.8); White Blood Cell Count 9.3 X10^3/uL (4.5-11.0)
[2023-03-30 08:43] LABS: BUN Creatinine Ratio 58.6 (6-22); Blood Urea Nitrogen 34 mg/dL (9-20); Calcium 8.2 mg/dL (8.4-10.2); Carbon Dioxide 30 mmol/L (22-32); Chloride 112 mmol/L (98-107); Estimated Glomerular Filt Rate > 60 mL/min (>60); Glucose 113 mg/dL (80-110); HEMOLYSIS < 15 (0-50); Magnesium 2.4 mg/dL (1.6-2.3); Potassium 3.2 mmol/L (3.4-5.1); Sodium 146 mmol/L (137-145)
[2023-03-30] MEDS: CARBIDOPA-LEVODOPA 25/100 TABLET 1 EACH PO ×3 (08:51→20:12)
[2023-03-30] MEDS: ENOXAPARIN 40 MG/0.4 ML SYRINGE SUBCUT (08:51)
[2023-03-30] MEDS: SODIUM CHLORIDE 0.9% FLUSH 10 ML IV ×2 (08:51→20:12)
[2023-03-30] MEDS: MORPHINE 2 MG/ML INJ IV (08:59)
[2023-03-30 09:09] LABS: Creatine Kinase 1028 U/L (55-170)
[2023-03-30] MEDS: DEXTROSE 5% WATER 1,000 ML 45 ML IV (09:38)
[2023-03-30] MEDS: OXYCODONE IR 5 MG TABLET PO (09:45)
[2023-03-30] MEDS: ACETAMINOPHEN 325 MG TABLET 650 MG PO (09:55)
[2023-03-30 10:00] VITALS: BP 119/63; PULSE 79; RESP 18; TEMP 36.3; O2SAT 97
--- NOTE | 2023-03-30 10:36 | PT.IPTN ---
Current Diagnoses Rhabdomyolysis (03/26/23) Physical Therapy Treatment Note M2 PT-IP Current Condition Start: 03/25/23 15:46 Freq: NEEDED Status: Active Protocol: Document 03/25/23 14:20 AB (Rec: 03/25/23 16:07 AB [id number]) Physical Therapy Current Condition Current Condition Evaluation Date 03/25/23 Treatment Diagnosis s/p fall; rhabdomyolysis; PD; difficulty in walking Onset Date 03/25/23 M3 PT-IP Subjective Start: 03/25/23 15:46 Freq: NEEDED Status: Active Protocol: Document 03/30/23 10:10 KS (Rec: 03/30/23 12:00 KS [id number]) Subjective Physical Therapy Visit Type Type Treatment Note Visit Start Time 10:10 Visit Stop Time 10:36 Total Visit Minutes 26 Number of HEAD OF PHYSICS Visits 1 Physical Therapy Visit Comments Patient Comments Agreed to transfer to chair M4 PT-IP Mobility and Gait Start: 03/25/23 15:46 Freq: NEEDED Status: Active Protocol: Document 03/30/23 10:10 KS (Rec: 03/30/23 12:00 KS [id number]) PT-Bed Mobility Assessment Supine to Sit Supine to Sit Maximum Assistance,1 Person Assistance,Head of Bed Elevated Scooting Scooting to Edge of Bed Maximum Assistance PT-Transfer Assessment Sit to and From Stand Sit to and from Stand Maximum Assistance,2 Person Assistance,Use of Upper Extremities Equipment Transfer Assistive Device Gait Belt,Front Wheeled Walker Orthotic/Prosthetic Devices or Brace: No Transfers Transfer Destination Chair Transfer Technique Stand Step Pivot Transfer Ability Level of Assist Moderate Assistance,2 Person Assistance,Use of Upper Extremities Comments Mobility Comments Pt in bed upon arrival, Max A for sup<>sit and scooting EOB. Max A x2 for sit<>stand and stand step pivot to chair. Pt w/ heavy retrolean and requires max cues for upright posture, weight shifting. Did have RLE buckling, needing max a to recover. Left in chair w / all needs in reach. Gait Assessment Comments Gait Comments Stand step pivot only PT-Balance Assessment Sitting Balance and Reactions Static Sitting Balance Ability Fair Dynamic Sitting Balance Ability Poor Standing Balance and Reactions Static Standing Balance Ability Poor Dynamic Standing Balance Ability Poor Device Used FWW M5 PT-IP Objective Assessments Start: 03/25/23 15:46 Freq: NEEDED Status: Active Protocol: Document 03/25/23 14:20 AB (Rec: 03/25/23 16:07 AB [id number]) Orientation Orientation/Cognition Level of Alertness Alert Orientation Name Safety Awareness Decreased Safety Awareness Memory Description Short Term Impaired Gross Range of Motion Lower Extremity ROM Assessment Within Functional Limits Strength Lower Extremity Strength Assessment Within Functional Limits M6 PT-IP Treatment Start: 03/25/23 15:46 Freq: NEEDED Status: Active Protocol: Document 03/30/23 10:10 KS (Rec: 03/30/23 12:00 KS [id number]) Physical Therapy Treatment Education Education Provided Safety M7 PT-IP Assessment and Plan Start: 03/25/23 15:46 Freq: NEEDED Status: Active Protocol: Document 03/30/23 10:10 KS (Rec: 03/30/23 12:00 KS [id number]) PT Summary Assessment and Plan Potential Rehabilitation Potential Fair Summary Impairments Pain,ROM,Strength,Balance, Coordination,Sensation,Tone, Cognition,Bed Mobility, Transfers,Gait,Activity Tolerance Progress Towards Goals Slow Progress due to Medical Issues,Slow Progress due to Activity Tolerance,Slow Progress - Other Assessment Summary Pt requires Max A for bed mobility and Max Ax2 for stand step pivot. Heavy retrolean and max cues. He will require SNF to improve functional mobility. Goals Bed Mobility Goal Minimal Assistance Transfer Goal Minimal Assistance,Front Wheeled Walker Gait Goal Minimal Assistance,Front Wheel Walker Gait Distance 50 Other Goals improve bed mobility, transfers and ambulation using 4WW SBA up/down 3 steps B rails SBA Days to Meet Goals 10 Frequency of Treatment Frequency Of Treatment Once a Day Treatment Plan Physical Therapy Treatment Plan Bed Mobility Training,Transfer Training,Gait Training, Therapeutic Exercise,Balance Retraining,Discharge Planning, Hot or Cold Pack,Neuromuscular Re-ed,Coordination Retraining ,Manual Therapy Precautions Other Precautions falls Recommendations To Nursing Amount of Assist Needed Mechanical Lift Discharge Recommendations PT Discharge Recommendations SNF Rehab Transportation Needs at Discharge Wheelchair/Cabulance
[2023-03-30] MEDS: POTASSIUM CHLORIDE IN WATER 10 MEQ/100 ML PIGGYBACK 100 MEQ IV ×4 (14:27→18:29)
--- NOTE | 2023-03-30 15:43 | PM.PN.1 ---
Subjective Subjective Interval history: 82 M admitted after a fall with rhabdomyolysis, fall likely in the setting of worsening parkinsonism and stopping medications. He has had improvement with fluids and sinemet thus far, but continues to fail swallow evaluations. No longer hypoxic today. with na of 146 started on slow d5w infusion Exam Vital Signs (past 8 hours): - 03/30/23 10:00 Temperature 97.4 F L Pulse Rate 79 Respiratory Rate 18 Blood Pressure 119/63 Pulse Oximetry 79 L Oxygen Flow Rate 0 Fraction of Inspired Oxygen 28 SaO2/FiO2 Ratio 339 Oxygen Delivery Method Room Air Oxygen Flow Rate 0 Narrative Exam Narrative: GEN: no acute distress, flat affect due to parkinson's but improving HEENT: moist mucous membranes, PERRL NECK: trachea midline, no JVD CV: regular rate and rhythm, no murmurs PULM: clear bilaterally ABD: soft, nontender, nondistended, no organomegaly EXT: right forearm and hand with increased swelling, no erythema, cap refill normal and sensation intact, radial pulse on R +2 NEURO: awake, alert, oriented, no focal deficits Objective Labs 03/30/23 08:10 03/30/23 08:10 Labs: Laboratory Results - last 24 hr 03/30/23 03/30/23 03/30/23 08:10 08:10 08:10 WBC 9.3 RBC 4.19 L Hgb 13.9 Hct 38.7 L MCV 92.3 MCH 33.2 MCHC 36.0 RDW 13.5 Plt Count 195 Neut % (Auto) 76.5 H Lymph % (Auto) 14.0 L [place] % (Auto) 7.2 Eos % (Auto) 1.8 L Baso % (Auto) 0.5 Neut # (Auto) 7100 H Lymph # (Auto) 1300 [place] # (Auto) 700 Eos # (Auto) 200 Baso # (Auto) 0 Sodium 146 H Potassium 3.2 L Chloride 112 H Carbon Dioxide 30 BUN 34 H Creatinine 0.58 L Estimated GFR > 60 BUN/Creatinine Ratio 58.6 H Glucose 113 H Calcium 8.2 L Magnesium 2.4 H Total Creatine Kinase 1028 H D [facility] Medical History (Updated 03/25/23 @ 17:48 by Denisse Blackmon RN) Actinic keratosis Arthritis Depression Drooling Erectile dysfunction Essential hypertension Falls frequently Fasting hyperglycemia Former smoker Hypertension Inguinal hernia Lumbar back pain Macrocytosis Normal colonoscopy Osteoarthritis of right hip Parkinsons disease Sebaceous cyst Seborrheic keratosis Surgical History (Updated 03/25/23 @ 17:48 by Denisse Blackmon RN) H/O cataract removal with insertion of prosthetic lens Social History household members: none Smoking Status: Former smoker Assessment & Plan Assessment & Plan narrative: # acute rhabdomyolysis without ASHKAN -CK 11,163, normal kidney function on admit worsened to 17K on HD#1, -continued IV fluids and trending CK levels, improved to 4483, IV fluids stopped 03/28 evening given hypoxia which has resolved. -continue to follow CK, may need to restart fluids more slowly if CK trends up however continues to downtrend to 1028 today. # concern for possible aspiration / acute hypoxic respiratory failure no present on admission -patient appeared to aspirate on his breakfast on , likely due to parkinsons -CXR showed no pneumonitis -MBS with FINANCIAL OPERATIONS CONSULTANT with johanna aspiration initially and on repeat today but improving clincally on Sinemet. Will repeat again on Friday. Feeding tube as noted in discussion below. -overnight 03/28 patient became hypoxic, likely due to volume overload but was started on zosyn empirically. With no fever and normal WBC, improvement in hypoxia with cesssation of fluids have stopped antibiotics given low likelihood of bacterial pneumonia as the etiology. # ground level fall and prolonged downtime -accidentally tripped while putting on pants, too weak to get up likely due to parkinson's -continue PT/OT eval with addition of sinemet # right forearm and hand swelling -no evidence of compartment syndrome, no fractures on imaging.US RUE negative for DVT. -oxy PRN for pain # elevated LFT's -likely due to rhabdo and has been improving. -monitor # Parkinson's disease -not on sinemet due to hallucinations with it, will need to restart given his mobility and speech restrctions understanding risk of hallucination. -had referral to neurologist placed, but patient didn't want to go -spoke with patient and son on 03/26 about the importance of treating his parkinsons given risk of progressive disease causing falls, aspiration and pneumonia is high. Patient agreed to see neurology as outpatient. # HTN -hold home HCTZ and lisinopril as currently normotensive. #hypokalemia - repleted with IV, continue to trend #hypernatremia - due to decreased oral intake, started on slow d5W today. #Advanced care planning - We discussed the possibilities for Friday, including another failed swallow evaluation. We discussed that if no feeding tube is desired that he would likely be recommended for hospice at that time, but that sinemet could continue to see if there is continued improvement. If feeding is desired that a PEG tube could be considered as well. If he improves slightly there are additional options, including temporary feeding with either NG tube or TPN, along with the first two. The hopeful outcome is that he is able to tolerated adequate oral intake on Friday, and that feeding access question would be avoided completely. He has an advanced directive, but patient appears competent to make decisions at this time and appeared open to the possibility of temporary feeding. I asked them to consider this question further in preparation for Friday. Code status is DNR. COVID negative. DVT prophylaxis with Lovenox. Proxy is neel Flores. Dispo: likely SNF when CK improved, also depending on mobility with sinemet, and improvement with swallow. Quality VTE Deep Vein Thrombosis/Pulmonary Embolism Present on Admission: No
[2023-03-30 18:37] VITALS: BP 141/66; PULSE 55; RESP 18; TEMP 37.2; O2SAT 98
[2023-03-30] MEDS: QUETIAPINE 25 MG TABLET PO (20:12)
[2023-03-31] VITALS: BP 135/55; PULSE 66; RESP 17; TEMP 36.1; O2SAT 99
--- NOTE | 2023-03-31 07:29 | P.PN_ITS ---
Subjective Subjective Interval history: Failed MBS this morning with continued aspiration. A 20 minute discussion was held about patient's wishes in terms of nutrition given his prior advanced directive said 'no feeding tube'. Patient says at that time he did not think he would ever need one, and now that he facing the decision for one he would rather have it then starve to . Dr. Gabriel consulted and will place PEG tomorrow. Exam Vital Signs (past 8 hours): - 03/31/23 00:00 Temperature 97.0 F L Pulse Rate 66 Respiratory Rate 17 Blood Pressure 135/55 L Pulse Oximetry 99 Oxygen Flow Rate 0 Fraction of Inspired Oxygen 28 SaO2/FiO2 Ratio 339 Oxygen Delivery Method Room Air Oxygen Flow Rate 0 Narrative Exam Narrative: GEN: no acute distress, flat affect due to parkinson's but improving HEENT: moist mucous membranes, PERRL NECK: trachea midline, no JVD CV: regular rate and rhythm, no murmurs PULM: clear bilaterally ABD: soft, nontender, nondistended, no organomegaly EXT: right forearm and hand with increased swelling, no erythema, cap refill normal and sensation intact, radial pulse on R +2 NEURO: awake, alert, oriented, no focal deficits Objective Labs 03/31/23 08:40 03/31/23 08:40 Labs: Laboratory Results - last 24 hr 03/30/23 03/30/23 03/30/23 08:10 08:10 08:10 WBC 9.3 RBC 4.19 L Hgb 13.9 Hct 38.7 L MCV 92.3 MCH 33.2 MCHC 36.0 RDW 13.5 Plt Count 195 Neut % (Auto) 76.5 H Lymph % (Auto) 14.0 L [place] % (Auto) 7.2 Eos % (Auto) 1.8 L Baso % (Auto) 0.5 Neut # (Auto) 7100 H Lymph # (Auto) 1300 [place] # (Auto) 700 Eos # (Auto) 200 Baso # (Auto) 0 Sodium 146 H Potassium 3.2 L Chloride 112 H Carbon Dioxide 30 BUN 34 H Creatinine 0.58 L Estimated GFR > 60 BUN/Creatinine Ratio 58.6 H Glucose 113 H Calcium 8.2 L Magnesium 2.4 H Total Creatine Kinase 1028 H D [facility] Medical History (Updated 03/25/23 @ 17:48 by Denisse E Wood, RN) Actinic keratosis Arthritis Depression Drooling Erectile dysfunction Essential hypertension Falls frequently Fasting hyperglycemia Former smoker Hypertension Inguinal hernia Lumbar back pain Macrocytosis Normal colonoscopy Osteoarthritis of right hip Parkinsons disease Sebaceous cyst Seborrheic keratosis Surgical History (Updated 03/25/23 @ 17:48 by Denisse Blackmon RN) H/O cataract removal with insertion of prosthetic lens Social History household members: none Smoking Status: Former smoker Assessment & Plan Assessment & Plan narrative: # dysphagia with acute aspiration -likely secondary to untreated Parkinsons -started sinemet 25/100 TID on 03/26 with some improvement in affect and dexterity, but none in swallowing -no improvement in swallowing with sinemet thus far, 3 separate MBS studies with johanna aspiration -increase sinemet to 50/200 TID on 03/31 -continue NPO, patient elected for PEG following GOC discussion on 03/31 -Dr. Gabriel, gen surg consulted and will place PEG on 04/01 -barrel bung remover and dumper consult for tube feeds # acute hypoxic respiratory failure, not present on admission, resolved -overnight 03/28 patient became hypoxic, likely due to volume overload but was started on zosyn empirically. With no fever and normal WBC, improvement in hypoxia with cessation of fluids have stopped antibiotics given low likelihood of bacterial pneumonia as the etiology. -weaned off O2 # acute rhabdomyolysis without ASHKAN -CK 11,163, normal kidney function on admit worsened to 17K on HD#1, -continued IV fluids and trending CK levels, improved to 4483, IV fluids stopped 03/28 evening given hypoxia which has resolved. -continue to follow CK, may need to restart fluids more slowly if CK trends up however continues to downtrend to 1028 today. # ground level fall and prolonged downtime -accidentally tripped while putting on pants, too weak to get up likely due to parkinson's -continue PT/OT eval with addition of sinemet # right forearm and hand swelling -no evidence of compartment syndrome, no fractures on imaging. US RUE negative for DVT. -oxy PRN for pain # elevated LFT's -likely due to rhabdo and has been improving. -monitor # Parkinson's disease -not on sinemet due to hallucinations with it, will need to restart given his mobility and speech restrctions understanding risk of hallucination. Removed sinemet allergy from chart. -had referral to neurologist placed, but patient didn't want to go -spoke with patient and son on 03/26 about the importance of treating his parkinsons given risk of progressive disease causing falls, aspiration and p neumonia is high. Patient agreed to see neurology as outpatient. -continue sinemet as above, now at 50/200 TID # HTN -hold home HCTZ and lisinopril as currently normotensive. #hypokalemia - repleted with IV, continue to trend #hypernatremia, resolved - due to decreased oral intake, started on slow d5W and resolved. Code status is DNR. COVID negative. DVT prophylaxis with Lovenox, hold for surg Proxy is son Mark. Dispo: likely SNF following PEG placement Quality VTE Deep Vein Thrombosis/Pulmonary Embolism Present on Admission: No
--- NOTE | 2023-03-31 07:53 | DIET.CONS2 ---
Dietary Inpatient Consultation Note Admission Date: 03/26/2023 14:[address] for potential nutrition support. Please consult RD if feeding plan desired after MBSS today. Diet: 03/26/23 08:54 NPO Diet Diet Modifications: pills crushed in teaspoon of cold applesauce NPO Type: NPO except for Meds Nutrition Percent Meal Consumed pt npo 03/29/23 18:00 Electronically Signed by: Diann Lagunas 03/31/23 07:53 Clinical Dietitian [address] [address]
[2023-03-31 08:00] VITALS: BP 145/63; PULSE 60; RESP 17; TEMP 36.3; O2SAT 95
[2023-03-31 08:49] LABS: Add Manual Diff / Slide Review NO; Basophils Absolute Auto 0 /uL (0-100); Basophils Percent Auto 0.3 % (0-2); Eosinophils Absolute Auto 200 /uL (0-450); Eosinophils Percent Auto 2.1 % (2-4); Hematocrit 40.7 % (41-53); Hemoglobin 14.4 g/dL (13.5-17.5); Lymphocytes Absolute Auto 1400 /uL (1100-4500); Lymphocytes Percent Auto 14.3 % (25-40); Mean Corpuscular HGB Conc 35.5 % (30-36); Mean Corpuscular Hemoglobin 33.2 PG (26-34); Mean Corpuscular Volume 93.5 fL (80-100); Monocytes Absolute Auto 700 /uL (0-900); Monocytes Percent Auto 6.9 % (3-14); Neutrophils Absolute Auto 7600 /uL (1500-7000); Neutrophils Percent Auto 76.4 % (50-75); Platelet Count 203 X10^3/uL (150-400); Red Blood Cell Count 4.35 X10^6/uL (4.5-5.9); Red Cell Distribution Width 13.4 % (11.6-14.8); White Blood Cell Count 9.9 X10^3/uL (4.5-11.0)
[2023-03-31 08:59] LABS: BUN Creatinine Ratio 56.9 (6-22); Blood Urea Nitrogen 29 mg/dL (9-20); Carbon Dioxide 31 mmol/L (22-32); Chloride 110 mmol/L (98-107); Estimated Glomerular Filt Rate > 60 mL/min (>60); Glucose 124 mg/dL (80-110); HEMOLYSIS < 15 (0-50); Magnesium 2.2 mg/dL (1.6-2.3); Potassium 3.4 mmol/L (3.4-5.1); Sodium 143 mmol/L (137-145)
[2023-03-31] MEDS: CARBIDOPA-LEVODOPA 25/100 TABLET 2 EACH PO ×2 (09:20→20:35)
[2023-03-31] MEDS: ENOXAPARIN 40 MG/0.4 ML SYRINGE SUBCUT (09:20)
[2023-03-31] MEDS: DEXTROSE 5% WATER 1,000 ML 45 ML IV (09:23)
--- NOTE | 2023-03-31 10:03 | DI.RAD.S_ITS ---
PROCEDURE: [place] BARIUM SWALLOW W SPEECH INDICATIONS: swallow difficulties COMPARISON: TECHNIQUE: Examination was conducted in conjunction with speech pathology per standard protocol. In the lateral projection, filming was performed of the patient swallowing. AP projection filming may also be performed with patient swallowing. COMPARISON: [facility], [place] BARIUM SWALLOW W SPEECH, 03/28/2023, 10:00. [facility], [place] BARIUM SWALLOW W SPEECH, 03/26/2023, 14:30. FINDINGS: Function: Patient demonstrates johanna aspiration during each swallow attempt. Slight vallecular pooling is noted. Exam terminated early due to aspiration. Morphology: No cricopharyngeal bar is identified. No cervical esophageal webs. No Zenker's diverticulum. No strictures. IMPRESSION: Laryngeotracheal penetration and aspiration are again demonstrated. Of note, please see independent report generated by the speech pathologist for further detailed specifics and characterization of the modified speech swallow study. Approved by: Toño Cunningham M.D. on 03/31/2023 at 10:41
--- NOTE | 2023-03-31 10:46 | PT.IPTN ---
Current Diagnoses Rhabdomyolysis (03/26/23) Physical Therapy Treatment Note M2 PT-IP Current Condition Start: 03/25/23 15:46 Freq: NEEDED Status: Active Protocol: Document 03/25/23 14:20 AB (Rec: 03/25/23 16:07 AB [id number]) Physical Therapy Current Condition Current Condition Evaluation Date 03/25/23 Treatment Diagnosis s/p fall; rhabdomyolysis; PD; difficulty in walking Onset Date 03/25/23 M3 PT-IP Subjective Start: 03/25/23 15:46 Freq: NEEDED Status: Active Protocol: Document 03/31/23 11:14 TS (Rec: 03/31/23 11:31 TS [id number]) Subjective Physical Therapy Visit Type Type Treatment Note Visit Start Time 10:46 Visit Stop Time 11:11 Total Visit Minutes 25 Number of CLOTHING ROOM SUPERVISOR Visits 2 Physical Therapy Visit Comments Patient Comments Pt found in chair, agreeable to PT. M4 PT-IP Mobility and Gait Start: 03/25/23 15:46 Freq: NEEDED Status: Active Protocol: Document 03/31/23 11:14 TS (Rec: 03/31/23 11:31 TS [id number]) PT-Transfer Assessment Sit to and From Stand Sit to and from Stand Maximum Assistance,1 Person Assistance,Use of Upper Extremities Equipment Transfer Assistive Device Gait Belt,Front Wheeled Walker Orthotic/Prosthetic Devices or Brace: No Transfers Transfer Destination Bed Transfer Technique Squat Pivot Transfer Ability Level of Assist Maximum Assistance,1 Person Assistance Comments Mobility Comments Pt found in w/c, agreeable to PT. Pt performed sit to stand x1 MaxA, provided cues for BUE support, pt has difficulty grasping with RUE due to swelling required hand over assist to grasp FWW. Pt stood MaxA with FWW, heavy retrolean , requires cues for full ext of LEs and weight forward. Pt attemepted to perform stand step pivot transfer but unable to progress LEs. Squat pivot MaxA to bed, provided cues for sequencing. Pt scooted along EOB to HOB with cues SBA, demosntrates good sitting balance with no UE support. Sit to supine Jenifer for LEs into bed, scooted to HOB with MaxA x2. Pt was left in bed with call light nearby, nrusing notified. Gait Assessment Comments Gait Comments Unable at this time. Performed squat pivot MaxA x1. PT-Balance Assessment Sitting Balance and Reactions Static Sitting Balance Ability Good Dynamic Sitting Balance Ability Fair Standing Balance and Reactions Static Standing Balance Ability Poor Dynamic Standing Balance Ability Poor Device Used FWW Comments Other Balance Tests/Deviations/Treatment See mobility comments. : M5 PT-IP Objective Assessments Start: 03/25/23 15:46 Freq: NEEDED Status: Active Protocol: Document 03/25/23 14:20 AB (Rec: 03/25/23 16:07 AB [id number]) Orientation Orientation/Cognition Level of Alertness Alert Orientation Name Safety Awareness Decreased Safety Awareness Memory Description Short Term Impaired Gross Range of Motion Lower Extremity ROM Assessment Within Functional Limits Strength Lower Extremity Strength Assessment Within Functional Limits M6 PT-IP Treatment Start: 03/25/23 15:46 Freq: NEEDED Status: Active Protocol: Document 03/31/23 11:14 TS (Rec: 03/31/23 11:31 TS [id number]) Physical Therapy Treatment Education Education Provided Safety M7 PT-IP Assessment and Plan Start: 03/25/23 15:46 Freq: NEEDED Status: Active Protocol: Document 03/31/23 11:14 TS (Rec: 03/31/23 11:31 TS [id number]) PT Summary Assessment and Plan Potential Rehabilitation Potential Fair Summary Impairments Pain,ROM,Strength,Balance, Coordination,Sensation,Tone, Cognition,Bed Mobility, Transfers,Gait,Activity Tolerance Progress Towards Goals Slow Progress due to Medical Issues,Slow Progress due to Activity Tolerance,Slow Progress - Other Assessment Summary Pt continues to make slow progress with mobility. He is muh more alert and conversational than the previous session with this therapist. He required MaxA x1 for sit to stand from w/c, in standing he retroleans requiring MaxA for standing balance, slightly improves with cues. Pt attempted stand pivot transfer to bed but could not progress feet forward, required squat pivot transfer to bed MaxA. Pt did demonstrate some increased UE strength scooting self to HOB along the EOB. PT continues to recommend SNF at this time to progress bed mobility, trasnfers and gait. Goals Bed Mobility Goal Minimal Assistance Transfer Goal Minimal Assistance,Front Wheeled Walker Gait Goal Minimal Assistance,Front Wheel Walker Gait Distance 50 Other Goals improve bed mobility, transfers and ambulation using 4WW SBA up/down 3 steps B rails SBA Days to Meet Goals 10 Frequency of Treatment Frequency Of Treatment Once a Day Treatment Plan Physical Therapy Treatment Plan Bed Mobility Training,Transfer Training,Gait Training, Therapeutic Exercise,Balance Retraining,Discharge Planning, Hot or Cold Pack,Neuromuscular Re-ed,Coordination Retraining ,Manual Therapy Other Recommendations and Next Treatment Pt may be appropriate for Focus power sit to stand machine. Precautions Other Precautions falls Recommendations To Nursing Amount of Assist Needed 2 Person Assist,Mechanical Lift,Power Sit-Stand Discharge Recommendations PT Discharge Recommendations SNF Rehab Transportation Needs at Discharge Wheelchair/Cabulance
--- NOTE | 2023-03-31 13:01 | CM.DPC ---
DCP Cont: Per MD, pt failed his third Modified Barium Swallow this morning and MD met bedside with pt and had a lengthy discussion regarding his options and his advanced directives. Pt has made the decision for feeding tube at this time and is not yet ready for Hospice. Surgeon Consult pending. Per PT/OT, still recommending SNF rehab via cabulance at d/c. SW called [facility] admissions and updated on pt current status and likely surgical intervention for feeding tube and confirmed they can still accept pt with a feeding tube and will just need updated clinicals and business professor recommendations for tube feeding formula. Plan: SW to follow for Surgeon Consult and feeding tube plan and to keep [facility] updated and send feeding recommendations and clinicals. ALEXANDRU Hurst
--- NOTE | 2023-03-31 15:12 | ST.SWALLOW ---
Visit Care Team Role Provider Type Jagjit Chandra MD Primary Care Provider Non-Staff Specialty: Internal Medicine Address: [facility] [address], [place], [address] Email: Martinez Gabriel MD Other Providers Physician Specialty: General Surgery Address: [address] [place] [address], [address], [place], [address] Email: [email or web address] Onesimo Mckeon DO Emergency Provider Physician Referring Provider Specialty: Emergency Medicine Address: [address] [place] [address], [address] Email: [email or web address] DO Admit Provider Physician Attending Provider Specialty: Internal Medicine Address: [address] [place] [address], [address] Email: [email or web address] Modified Barium Swallow Study [employer]IVATE [employer]ANCH EXCHANGE SERVICE ADVISER Clinical Instructor Line Start: 03/28/23 10:27 Freq: Status: Active Protocol: Document 03/31/23 10:36 BE (Rec: 03/31/23 11:11 BE [id number]) Clinical Instructor Signature Clinical Instructor Clinical Instructor Yes: Vianey BYNUM Modified Barium Swallow Study Start: 03/26/23 16:41 Freq: Status: Active Protocol: Document 03/31/23 10:36 BE (Rec: 03/31/23 11:11 BE [id number]) Modified Barium Swallow Study Total Time Visit Start Time 10:00 Visit Stop Time 10:15 Total Visit Minutes [address] Ncihols Reason for Referral dysphagia Setting Setting Acute Care Patient Information Identification Type Name,ID Wristband Patient History Mohan Roberts is an 82-year-old male with past medical history of Parkinson's disease not on Sinemet and HTN who presents after fall at home and lying on the ground all night. Pt reported discontinuing medical treatment for Parkinson's due to hallucinations. Patient states he lives alone in a trailer and uses a walker to ambulate. Last night while attempting to put on pants, he tripped and landed facefirst. Pt admitted to AC. Pt placed NPO following nursing report that pt appeared to have aspirated on breakfast. Initial MBS ordered and completed on 03/26/23 with johanna aspiration across trials . Pt suctioned and trial discontinued following NTL due to aspiration risk. Pt's NPO status extended pending new medication to treat Parkison's , and additional MBS ordered to assess effectiveness and inform swallow status/diet restrictions. Second MBS completed 03/28/23 with johanna aspiration noted across trials of thin, nectar, honey thick liquids. MBS discontinued following pudding trial, with suction required. Pt reported hallucinations from recently prescribed Parkinson's medication. Subjective Observations Pt brought to radiology in assessment chair. He agreed to participate in MBS. Patient Positioning Position View Lateral Imaging Lateral View Textures Administered Trials Presented Thin Liquid via Spoon (IDDSI 0 ),Mildly Thick Liquid via Spoon (IDDSI 2) Barium Tablet No The IDDSI Framework Protocol: IDDSI.1 Oral Impairment Source: The Modified Barium Swallow Impairment Profile (MBSImP??) Lip Closure Escape from interlab.space/lat .junct.;no ext. beyond vermilion border Tongue Control During Bolus Hold Posterior escape of greater than half of bolus Bolus Transport/Lingual Motion Slowed tongue motion Oral Residue Residue collection on oral structures Location Tongue Initiation of Pharyngeal Swallow Bolus head in valleculae Additional Oral Impairment Observations OME indicated reduced strength , speed, and coordination of oral structures. Significant overall oral weakness observed . ORAL PHASE Pt demonstrated difficulty with bolus control and transport across trials, with over half of bolus prematurely spilled into pharynx. Slowed movement of tongue, with no tongue pumping noted accross trials. Previous MBS inidicated high frequency of tongue pumping during solid trial, which was not presented today. Unable to assess mastication due to safety concerns. Pharyngeal Impairment Source: The Modified Barium Swallow Impairment Profile (MBSImP??) Soft Palate Elevation Escape to nasopharynx Laryngeal Elevation Part.sup.move.thyroid cart/ part.approx.arytenoids to epiglot.petiole Anterior Hyoid Excursion Partial anterior movement Epiglottic Movement No inversion Laryngeal Vestibular Closure Incomplete; narrow column air/ contrast in laryngeal vestibule Pharyngeal Stripping Wave Present - diminished Pharyngoesophageal Segment Opening Minimal distension/minimal duration; marked obstruction of flow Tongue Base Retraction Wide column of contrast/air betwn tongue base & post. pharyngeal wall Pharyngeal Residue Majority of contrast within/on pharyngeal structures Location Diffuse (>3 areas) Additional Pharyngeal Impairment Limited base of tongue Observations strength and hyolaryngeal elevation negatively impated epiglottic inversion. The epiglottis did not invert and therefore resulted in poor laryngeal seal. Penetration was observed x3/3 trials with johanna aspiration observed x3/3 trials. Contrast observed within the larynx, on and below the vocal folds as well as in the trachea below the folds (PAS8). All aspiration was silent, without reflexive cough. Pt demonstrated a weak, nonproductive cough when cued . Trials discontinued following NTL trial due to concerns for further aspiration. Chin tuck with teaspoon of NTL resulted in aspiration. A/P View The IDDSI Framework Protocol: IDDSI.1 Clinical Impressions Dysphagia Type Oral,Pharyngeal Findings Pt presents with severe oropharyngeal dsyphagia, characterized by pervasive reduced strength, coordination and ROM of swallow musculature. Pt shows slight improvement in ROM, coordination and strength of swallow structures from previous MBS following 4+ days of Parkinson's medication, but not enough to safely tolerate PO intake. Pt continues to silently aspirate with weak/unproductive cued cough. Chin tuck unsuccessful in preventing aspiration. Recommend continued NPO diet. Recommend follow-up with speech therapy to provide education regarding swallow impairment and plan of care. Improvement unlikely in near future, do not recommend repeat MBS. Rehabilitation Potential Fair Recommendations Diet Diet Order NPO Medication Recommendation Crushed in Carrier,Not Recommended by Mouth Comments COLD carrier for increased sensory stimulation Additional Dietary Needs 1:1 Assistance Aspiration Precautions Recommended Precautions Upright at 90 Degrees Additional Precautions Remain upright x 15-20 minutes Treatment Plan Therapy Recommendations Inpatient Speech Therapy Recommended Referrals Neurology Additional Strategies Recommended Currenly, only PO intake is Sinemet in a carrier Correction Goals 1. Pt will safely tolerate least restrictive diet to meet hydration and nutritional needs . 2. ST will provide education regarding swallow impairment and plan of care. Placement Recommendation After Discharge [facility] Facility,[facility],Home with Hospice Additional Recommendations/Comments Outcome is dependent on effects of Sinemet at this time. If Sinemet cannot be administered NPO, recommend crushed in cold puree carrier.
--- NOTE | 2023-03-31 15:35 | OT.IPNOTE ---
Attempted to see pt for OT services. Pt declined all services despite encouragement. Will continue to follow.
--- NOTE | 2023-03-31 16:26 | DIET.CONS ---
Dietary Consultation Note Admission Date: 03/26/2023 14:26 Assessment: 82y M admitted after GLF referred to nutrition for tube feeding reccs. Pt failed MBSS x3 with silent aspiration on all liquid textures. Per ETHANOL OPERATIONS MANAGER pt unsafe for oral intake. Pt is DNR but elects for PEG tube placement to initiate enteral nutrition as he does not prefer hospice at this time. PEG tube to be placed by [facility] surgeon. PEG may be used 4-6h after placed if no complications arise. Ht: 180.34 cm Wt: 79.379 kg BMI: 24.4 Last BM: 03/29/23 (03/29/23 04:16) MNA: 9 Roberth Score: 12 Diet: 03/26/23 08:54 NPO Diet Diet Modifications: pills crushed in teaspoon of cold applesauce NPO Type: NPO except for Meds Nutrition Percent Meal Consumed pt npo 03/29/23 18:00 Labs: RBC 4.35 X10^6/uL (4.5-5.9) L 03/31/23 08:40 Hgb 14.4 g/dL (13.5-17.5) 03/31/23 08:40 Hct 40.7 % (41-53) L 03/31/23 08:40 Creatinine 0.51 mg/dL (0.66-1.25) L 03/31/23 08:40 Lactate 1.5 mmol/L (0.7-2.1) 03/28/23 21:51 NT-Pro-B Natriuret Pep 1720 pg/mL (<450) H 03/28/23 21:51 Nutrition Diagnosis: inadequate oral intake r/t swallowing difficulty aeb pt with MBSS showing silent aspiration on all liquid textures, pt electing for PEG tube placement. Interventions: 1. Recc initiation of continuous pump assisted enteral feeding via PEG tube using Jevity 1.2. Once pt tolerating goal rate, recc starting bolus gravity feeds in anticipation of d/c. Jevity 1.2 initiating at 20mL/h titrating up by 10-20mL q6h as tolerated until reaching goal rate of 70mL/h. Recc 150mL free water flushes q6h. Formula plus free water provide 2016kcals (25kcal/kg), 92g PRO (1.2g/kg), 1356mL feed water and 900mL free water (28mL/kg). 2. HOB elevated <30 degrees at all times. EER: 2,000 kcals (25kcal/kg), 93g PRO (1.2g/kg per elder) Monitoring/Evaluations: following daily Electronically Signed by: Diann Lagunas 03/31/23 16:26 Clinical Diet[address] [address]
--- NOTE | 2023-03-31 16:54 | PM.CN ---
History of Present Illness Consult details Date Patient Seen: 03/31/23 Time Patient Seen: 16:54 Chief complaint: Fall last night,found on ground Narrative: Mohan is an 82-year-old man with Parkinson's dementia who was found down in his trailer. He was brought in and found to have rhabdomyolysis. He was also having aspiration and failed a modified barium swallow study. Dr. Nichols had a discussion with the patient about a feeding tube in the patient is interested in understanding the options. He has never had abdominal surgery before. Meds Home Medications and Allergies Home Medications Medication Instructions Recorded Confirmed Type aspirin 81 mg tablet,delayed 81 mg PO DAILY 03/25/23 03/25/23 History release hydrochlorothiazide 25 mg tablet 25 mg PO DAILY 03/25/23 03/25/23 History lisinopril 10 mg tablet 10 mg PO DAILY 03/25/23 03/25/23 History Allergies Allergy/AdvReac Type Severity Reaction Status Date / Time carbidopa [From Sinemet] Allergy Hallucinati Verified 03/25/23 17:50 ng levodopa [From Sinemet] Allergy Hallucinati Verified 03/25/23 17:50 ng pramipexole [From Mirapex] Allergy Hallucinati Verified 03/25/23 17:50 ng Exam Vital Signs (past 8 hours): Fraction of Inspired Oxygen 28 SaO2/FiO2 Ratio 339 Oxygen Delivery Method Room Air Oxygen Flow Rate 0 Narrative Exam Narrative: Abdomen soft No surgical incisional scars Objective Labs 03/31/23 08:40 03/31/23 08:40 Labs: Laboratory Results - last 24 hr 03/31/23 03/31/23 08:40 08:40 WBC 9.9 RBC 4.35 L Hgb 14.4 Hct 40.7 L MCV 93.5 MCH 33.2 MCHC 35.5 RDW 13.4 Plt Count 203 Neut % (Auto) 76.4 H Lymph % (Auto) 14.3 L [place] % (Auto) 6.9 Eos % (Auto) 2.1 Baso % (Auto) 0.3 Neut # (Auto) 7600 H Lymph # (Auto) 1400 [place] # (Auto) 700 Eos # (Auto) 200 Baso # (Auto) 0 Sodium 143 Potassium 3.4 Chloride 110 H Carbon Dioxide 31 BUN 29 H Creatinine 0.51 L Estimated GFR > 60 BUN/Creatinine Ratio 56.9 H Glucose 124 H Calcium 8.0 L Magnesium 2.2 PFSH Medical History (Updated 03/25/23 @ 17:48 by Denisse Blackmon RN) Actinic keratosis Arthritis Depression Drooling Erectile dysfunction Essential hypertension Falls frequently Fasting hyperglycemia Former smoker Hypertension Inguinal hernia Lumbar back pain Macrocytosis Normal colonoscopy Osteoarthritis of right hip Parkinsons disease Sebaceous cyst Seborrheic keratosis Surgical History (Updated 03/25/23 @ 17:48 by Denisse Blackmon RN) H/O cataract removal with insertion of prosthetic lens Social History household members: none Tobacco & Substance Use Smoking Status: Former smoker Assessment & Plan Assessment and plan (1) Parkinson's disease: Status: Acute Plan I discussed the risks benefits and indications of a feeding tube with the patient and his family members. Normally we would perform a percutaneous endoscopic gastrostomy tube or PEG however we do not have any kits as they are back ordered at this time. Alternatively we can perform a laparoscopic gastrostomy tube which would require 3 additional small incisions. There is minimal additional pain from these 3 incisions. I explained the risks of the procedure to the patient and his family and they would like to proceed. Hold Lovenox and NPO.
[2023-03-31 17:00] VITALS: BP 147/74; PULSE 66; RESP 17; TEMP 36.2; O2SAT 96
[2023-03-31] MEDS: QUETIAPINE 25 MG TABLET PO (20:34)
[2023-04-01 00:35] VITALS: BP 154/76; PULSE 72; RESP 18; TEMP 36.5; O2SAT 99
[2023-04-01 06:23] LABS: Add Manual Diff / Slide Review NO; Basophils Absolute Auto 0 /uL (0-100); Basophils Percent Auto 0.5 % (0-2); Eosinophils Absolute Auto 200 /uL (0-450); Eosinophils Percent Auto 2.5 % (2-4); Hematocrit 41.3 % (41-53); Hemoglobin 14.8 g/dL (13.5-17.5); Lymphocytes Absolute Auto 1500 /uL (1100-4500); Lymphocytes Percent Auto 18.4 % (25-40); Mean Corpuscular HGB Conc 35.9 % (30-36); Monocytes Absolute Auto 700 /uL (0-900); Monocytes Percent Auto 8.5 % (3-14); Neutrophils Absolute Auto 5800 /uL (1500-7000); Neutrophils Percent Auto 70.1 % (50-75); Platelet Count 229 X10^3/uL (150-400); Red Blood Cell Count 4.49 X10^6/uL (4.5-5.9); Red Cell Distribution Width 13.1 % (11.6-14.8); White Blood Cell Count 8.3 X10^3/uL (4.5-11.0)
[2023-04-01 06:38] LABS: BUN Creatinine Ratio 48.1 (6-22); Blood Urea Nitrogen 25 mg/dL (9-20); Calcium 8.1 mg/dL (8.4-10.2); Carbon Dioxide 31 mmol/L (22-32); Chloride 110 mmol/L (98-107); Estimated Glomerular Filt Rate > 60 mL/min (>60); Glucose 127 mg/dL (80-110); HEMOLYSIS 15 (0-50); Magnesium 2.2 mg/dL (1.6-2.3); Potassium 3.3 mmol/L (3.4-5.1); Sodium 142 mmol/L (137-145)
[2023-04-01 07:00] VITALS: BP 153/68; PULSE 64; RESP 17; TEMP 36.7; O2SAT 98
--- NOTE | 2023-04-01 07:35 | P.PN_ITS ---
Subjective Subjective Interval history: Awaiting PEG tube placement today. May get delayed due to lack of tube supplies per gen surg. Exam Vital Signs (past 8 hours): - 04/01/23 00:35 Temperature 97.7 F Pulse Rate 72 Respiratory Rate 18 Blood Pressure 154/76 H Pulse Oximetry 99 Oxygen Flow Rate 0 Fraction of Inspired Oxygen 28 SaO2/FiO2 Ratio 339 Oxygen Delivery Method Room Air Oxygen Flow Rate 0 Narrative Exam Narrative: GEN: no acute distress, flat affect due to parkinson's but improving HEENT: moist mucous membranes, PERRL NECK: trachea midline, no JVD CV: regular rate and rhythm, no murmurs PULM: clear bilaterally ABD: soft, nontender, nondistended, no organomegaly EXT: right forearm and hand with increased swelling, no erythema, cap refill normal and sensation intact, radial pulse on R +2 NEURO: awake, alert, oriented, no focal deficits Objective Labs 04/01/23 06:05 04/01/23 06:05 Labs: Laboratory Results - last 24 hr 03/31/23 03/31/23 04/01/23 08:40 08:40 06:05 WBC 9.9 8.3 RBC 4.35 L 4.49 L Hgb 14.4 14.8 Hct 40.7 L 41.3 MCV 93.5 92.0 MCH 33.2 33.0 MCHC 35.5 35.9 RDW 13.4 13.1 Plt Count 203 229 Neut % (Auto) 76.4 H 70.1 Lymph % (Auto) 14.3 L 18.4 L [place] % (Auto) 6.9 8.5 Eos % (Auto) 2.1 2.5 Baso % (Auto) 0.3 0.5 Neut # (Auto) 7600 H 5800 Lymph # (Auto) 1400 1500 [place] # (Auto) 700 700 Eos # (Auto) 200 200 Baso # (Auto) 0 0 Sodium 143 Potassium 3.4 Chloride 110 H Carbon Dioxide 31 BUN 29 H Creatinine 0.51 L Estimated GFR > 60 BUN/Creatinine Ratio 56.9 H Glucose 124 H Calcium 8.0 L Magnesium 2.2 04/01/23 06:05 WBC RBC Hgb Hct MCV MCH MCHC RDW Plt Count Neut % (Auto) Lymph % (Auto) [place] % (Auto) Eos % (Auto) Baso % (Auto) Neut # (Auto) Lymph # (Auto) [place] # (Auto) Eos # (Auto) Baso # (Auto) Sodium 142 Potassium 3.3 L Chloride 110 H Carbon Dioxide 31 BUN 25 H Creatinine 0.52 L Estimated GFR > 60 BUN/Creatinine Ratio 48.1 H Glucose 127 H Calcium 8.1 L Magnesium 2.2 PFSH Medical History (Updated 03/25/23 @ 17:48 by Denisse Blackmon, RN) Actinic keratosis Arthritis Depression Drooling Erectile dysfunction Essential hypertension Falls frequently Fasting hyperglycemia Former smoker Hypertension Inguinal hernia Lumbar back pain Macrocytosis Normal colonoscopy Osteoarthritis of right hip Parkinsons disease Sebaceous cyst Seborrheic keratosis Surgical History (Updated 03/25/23 @ 17:48 by Denisse Blackmon, KRISTIN) H/O cataract removal with insertion of prosthetic lens Social History household members: none Smoking Status: Former smoker Assessment & Plan Assessment & Plan narrative: # dysphagia with acute aspiration -likely secondary to untreated Parkinsons -started sinemet 25/100 TID on 03/26 with some improvement in affect and dexterity, but none in swallowing -no improvement in swallowing with sinemet thus far, 3 separate MBS studies with johanna aspiration -increase sinemet to 50/200 TID on 03/31 -continue NPO, patient elected for PEG following GOC discussion on 03/31 -Dr. Gabriel, gen surg consulted and will place PEG on 04/01 of 04/02 pending tube supplies -land management forester consult for tube feeds # acute hypoxic respiratory failure, not present on admission, resolved -overnight 03/28 patient became hypoxic, likely due to volume overload but was started on zosyn empirically. With no fever and normal WBC, improvement in hypoxia with cessation of fluids have stopped antibiotics given low likelihood of bacterial pneumonia as the etiology. -weaned off O2 # acute rhabdomyolysis without ASHKAN -CK 11,163, normal kidney function on admit worsened to 17K on HD#1, -continued IV fluids and trending CK levels, improved to 4483, IV fluids stopped 03/28 evening given hypoxia which has resolved. -continue to follow CK, may need to restart fluids more slowly if CK trends up however continues to downtrend to 1028 on 03/30. # ground level fall and prolonged downtime -accidentally tripped while putting on pants, too weak to get up likely due to parkinson's -continue PT/OT eval with addition of sinemet -will need SNF # right forearm and hand swelling -no evidence of compartment syndrome, no fractures on imaging. US RUE negative for DVT. -oxy PRN for pain # elevated LFT's -likely due to rhabdo and has been improving. -monitor # Parkinson's disease -not on sinemet due to hallucinations with it, will need to restart given his mobility and speech restrctions understanding risk of hallucination. Removed sinemet allergy from chart. -had referral to neurologist placed, but patient didn't want to go -spoke with patient and son on 03/26 about the importance of treating his park insons given risk of progressive disease causing falls, aspiration and pneumonia is high. Patient agreed to see neurology as outpatient. -continue sinemet as above, now at 50/200 TID # HTN -hold home HCTZ and lisinopril as currently normotensive. #hypokalemia -repleted with IV, continue to trend #hypernatremia, resolved - due to decreased oral intake, started on slow d5W and resolved. Code status is DNR. COVID negative. DVT prophylaxis with Lovenox, hold for surg Proxy is son Mark. Dispo: likely SNF following PEG placement Quality VTE Deep Vein Thrombosis/Pulmonary Embolism Present on Admission: No
[2023-04-01] MEDS: POTASSIUM CHLORIDE IN WATER 10 MEQ/100 ML PIGGYBACK 100 MEQ IV ×4 (08:32→11:57)
--- NOTE | 2023-04-01 08:55 | PT.IPTN ---
Current Diagnoses Parkinson's disease (03/26/23) Rhabdomyolysis (03/26/23) Surgery Performed Operation Date: 04/01/23 15:45 <No data on this case meets the specified criteria> Physical Therapy Treatment Note M2 PT-IP Current Condition Start: 03/25/23 15:46 Freq: NEEDED Status: Active Protocol: Document 03/25/23 14:20 AB (Rec: 03/25/23 16:07 AB [id number]) Physical Therapy Current Condition Current Condition Evaluation Date 03/25/23 Treatment Diagnosis s/p fall; rhabdomyolysis; PD; difficulty in walking Onset Date 03/25/23 M3 PT-IP Subjective Start: 03/25/23 15:46 Freq: NEEDED Status: Active Protocol: Document 04/01/23 09:40 TS (Rec: 04/01/23 10:00 TS [id number]) Subjective Physical Therapy Visit Type Type Treatment Note Visit Start Time 08:55 Visit Stop Time 09:14 Total Visit Minutes 19 Notes Split treatment with OT. Per nursing pt ot have feeding tube in place in the afternoon today. Number of BARBER TOOL SHARPENER Visits 3 Physical Therapy Visit Comments Patient Comments Pt found resting in bed, reports some burning in posterior RLE, agreeable to PT . M4 PT-IP Mobility and Gait Start: 03/25/23 15:46 Freq: NEEDED Status: Active Protocol: Document 04/01/23 09:40 TS (Rec: 04/01/23 10:00 TS [id number]) PT-Bed Mobility Assessment Rolling Type of Rolling Roll to Left Level of Assist Minimal Assistance Supine to Sit Supine to Sit Maximum Assistance,1 Person Assistance,Head of Bed Elevated Sit to Supine Sit to Supine Maximum Assistance,2 Person Assistance Scooting Scooting to Edge of Bed Maximum Assistance Scooting Up and Down in Bed Maximum Assistance PT-Transfer Assessment Sit to and From Stand Sit to and from Stand Moderate Assistance,2 Person Assistance,Use of Upper Extremities Equipment Transfer Assistive Device Gait Belt,Front Wheeled Walker Orthotic/Prosthetic Devices or Brace: No Comments Mobility Comments Pt found resting in bed, agreeable to PT. Supine to sit HOB elevated MaxA for uprighting trunk and some LE assist. Pt sooted to EOB initially Jenifer progressed to MaxA for feet touching floor. Pt sat EOB leaning laterally to left side, provided verbal/ tactile cues for midline sitting. Sit to stand x2 w/FWW platform on R side ModA x2 provided cues for weight forward and BUE support. In standing pt required MaxA for balance and bracing back of LEs against bed. He performed sidesteps ModA x2 along EOB, provided cues for weight shifting and increased foot clearance. Sit to supine MaxA x2 for LEs and trunk into bed, pt demonstrated some lift of hips to adjust self in bed. He required MaxA x2 to scoot to HOB. Pt was lft in bed with OT in room, call light nearby, nrusing notified. Gait Assessment Gait Gait Assistance Required: Moderate Assistance,2 Person Assist Distance (Feet) 3 Able to Maintain Weight Bearing Status Yes During Gait Assistive Devices Orthotic/Prosthetic Devices or Brace: No Gait Deviations General Gait Pattern Decreased Stride Length, Decreased Feet Clearance, Lateral Trunk Lean,Narrow Based Gait,Step-to Gait Factors Limiting Gait Function Factors Limiting Gait Function Decreased Activity Tolerance, Decreased Strength,Difficulty Following Directions, Incoordination,Limited Range of Motion,Pain,Poor Balance, Poor Safety Awareness Comments Gait Comments Pt performed sidestepping along EOB with ModA x2 PT-Balance Assessment Sitting Balance and Reactions Static Sitting Balance Ability Good Dynamic Sitting Balance Ability Fair Standing Balance and Reactions Static Standing Balance Ability Poor Dynamic Standing Balance Ability Poor Device Used FWW Comments Other Balance Tests/Deviations/Treatment See mobility comments. : M5 PT-IP Objective Assessments Start: 03/25/23 15:46 Freq: NEEDED Status: Active Protocol: Document 03/25/23 14:20 AB (Rec: 03/25/23 16:07 AB [id number]) Orientation Orientation/Cognition Level of Alertness Alert Orientation Name Safety Awareness Decreased Safety Awareness Memory Description Short Term Impaired Gross Range of Motion Lower Extremity ROM Assessment Within Functional Limits Strength Lower Extremity Strength Assessment Within Functional Limits M6 PT-IP Treatment Start: 03/25/23 15:46 Freq: NEEDED Status: Active Protocol: Document 04/01/23 09:40 TS (Rec: 04/01/23 10:00 [id number]) Physical Therapy Treatment Education Education Provided Safety M7 PT-IP Assessment and Plan Start: 03/25/23 15:46 Freq: NEEDED Status: Active Protocol: Document 04/01/23 09:40 TS (Rec: 04/01/23 10:00 [id number]) PT Summary Assessment and Plan Potential Rehabilitation Potential Fair Summary Impairments Pain,ROM,Strength,Balance, Coordination,Sensation,Tone, Cognition,Bed Mobility, Transfers,Gait,Activity Tolerance Progress Towards Goals Slow Progress due to Medical Issues,Slow Progress due to Activity Tolerance,Slow Progress - Other Assessment Summary Pt continues to make slow progress for mobility due to decreased strength ongoing medical issues and activity tolerance. He is MaxA for bed mobility, ModA x2 for sit to stands and for sidestepping in FWW w/platform for R side. PT continues to recommend SNF to progress functional mobiltiy and gait. Goals Bed Mobility Goal Minimal Assistance Transfer Goal Minimal Assistance,Front Wheeled Walker Gait Goal Minimal Assistance,Front Wheel Walker Gait Distance 50 Other Goals improve bed mobility, transfers and ambulation using 4WW SBA up/down 3 steps B rails SBA Days to Meet Goals 10 Frequency of Treatment Frequency Of Treatment Once a Day Treatment Plan Physical Therapy Treatment Plan Bed Mobility Training,Transfer Training,Gait Training, Therapeutic Exercise,Balance Retraining,Discharge Planning, Hot or Cold Pack,Neuromuscular Re-ed,Coordination Retraining ,Manual Therapy Precautions Other Precautions falls Recommendations To Nursing Amount of Assist Needed 2 Person Assist,Mechanical Lift,Power Sit-Stand Discharge Recommendations PT Discharge Recommendations SNF Rehab Transportation Needs at Discharge Wheelchair/Cabulance
--- NOTE | 2023-04-01 09:38 | OT.IP.TRT ---
Current Diagnoses Parkinson's disease (03/26/23) Rhabdomyolysis (03/26/23) Surgery Performed Operation Date: 04/01/23 15:45 <No data on this case meets the specified criteria> Occupational Therapy Treatment Note M2 OT-IP Current Condition Start: 03/26/23 14:23 Freq: Status: Active Protocol: Document 03/26/23 14:00 [facility] (Rec: 03/26/23 14:48 [facility] [id number]) Occupational Therapy Current Condition Current Condition Evaluation Date 03/26/23 Treatment Diagnosis S/p Fall, Rhabdomylysis Diagnosis Onset Date 03/25/23 M3 OT- IP Subjective and Pain Start: 03/26/23 14:23 Freq: Status: Active Protocol: Document 04/01/23 09:15 [facility] (Rec: 04/01/23 10:37 [facility] [id number]) OT- Subjective Occupational Therapy Visit Type Type Treatment Note Visit Start Time 08:55 Visit Stop Time 09:38 Total Visit Minutes 23 Notes Pt seen with ENTRY LEVEL CHEMIST for part fo the session to try platform walker for RUE. Occupational Therapy Visit Comments Patient Comments Pt agreed to get up. Patient/Caregiver Goals TO get better. OT Pain Assessment Pain When Pain Assessed At Rest Pain Present Pain Present Pain Reported Location Right Calf Description Radiating,Throbbing M4 OT- IP ADL's Start: 03/26/23 14:23 Freq: Status: Active Protocol: Document 04/01/23 09:15 [facility] (Rec: 04/01/23 10:37 [facility] [id number]) OT [id number] Comments OT Self-Feeding Comments Pt is NPO at this time. OT ADL-Grooming Comments OT Grooming Comments Pt needing assist to help wash his face. OT ADL-Toileting Comments OT Toileting Comments Garcia in place. OT ADL-Bathing Comments OT Bathing Comments Sponge bath more appropriate at this time. M5 OT- IP IADL's Start: 03/26/23 14:23 Freq: Status: Active Protocol: Document 03/26/23 14:00 [facility] (Rec: 03/26/23 14:48 [facility] [id number]) OT-Instrumental Activities of Daily Living Home Safety Awareness Home Safety Comments Pt having difficulty to follow command and is confused. M6 OT- IP Functional Cognition Start: 03/26/23 14:23 Freq: Status: Active Protocol: Document 04/01/23 09:15 [facility] (Rec: 04/01/23 10:37 [facility] [id number]) Cognitive Factors Limiting Selfcare Function Cognitive Ability Level of Alertness Alert Patient Orientation Name Ability to Follow Commands Able to Follow One Step Commands Cognitive Comments Cognitive Assessment Comments Increased time to process and follow commands for mobility needs. M7 OT- IP Mobility and Balance Start: 03/26/23 14:23 Freq: Status: Active Protocol: Document 04/01/23 09:15 [facility] (Rec: 04/01/23 10:37 [facility] [id number]) OT- Bed Mobility Assessment Rolling Level of Assistance Maximum Assistance,1 Person Assistance Supine to Sit Supine to Sit Assist Maximum Assistance,1 Person Assistance Sit to Supine Sit to Supine Assist Maximum Assistance,2 Person Assistance Scooting Scooting to Edge of Bed Maximum Assistance,2 Person Assistance OT-Transfer Assessment Sit to and From Stand Sit to and from Stand Moderate Assistance,2 Person Assistance Comments Mobility Comments MODA x2 to stand with right platform on FWW and able to take a few sides step to the head of the bed. Pt needing MAX vc and assist for weight shifting so able to picker and sorter load and unload his feet. OT- Balance Assessment Sitting Balance and Reactions Static Sitting Balance Ability Poor Standing Balance and Reactions Static Standing Balance Ability Poor Dynamic Standing Balance Ability Poor Comments Other Balance Tests/Deviations/Treatment Pt still heavily leans but to : the left today and needing cues and assist to sit to midline. Pt needing close SBA to ELIE for sitting balance. M8 OT- IP Objective Assessments Start: 03/26/23 14:23 Freq: Status: Active Protocol: Document 03/27/23 10:43 [facility] (Rec: 03/27/23 11:37 [facility] [id number]) OT Strength Comments Strength Comments Pt's right hand still swollen and hot to touch, nursing aware. Educated pt to keep with right arm elevated on a pillow and do gentle AAROM with assist from his left hand . OT Sensation Assessment Comments Summary Comments Pt states decreased sensation and whole right arm feeling numb, M9 OT- IP Assessment and Plan Start: 03/26/23 14:23 Freq: Status: Active Protocol: Document 04/01/23 09:15 [facility] (Rec: 04/01/23 10:37 [facility] [id number]) OT Summary Assessment and Plan Potential Rehabilitation Potential Good Analytic Complexity at Evaluation High Summary OT Impairments Pain,Range of Motion,Strength, Balance,Functional Cognition, Functional Mobility,Self- Feeding,Grooming,Dressing, Toileting,Bathing,Toilet Transfers,Shower Transfers, Activity Tolerance Progress Towards Goals Slow Progress due to Medical Issues,Slow Progress due to Activity Tolerance Assessment Summary Pt able to stand with MODA X 2 with FWW able to take a few side steps to the head of the bed with assist with weight shifting and vc to push on the handles of the FWW so able to move his feet. Pt still leans while seated and needing assist and increased time to sit to midline. Pt to have PEG tube sx today and would benefit from stretcher for transportation due to decrease trunk control and after sx today will probably be weaker and have more difficulty to sit. Pt to go to skilled rehab when medically stable. Goals Self-Feeding Goal Standby Assistance Grooming Goal Standby Assistance Dressing Goal Minimal Assistance Toileting Goal Minimal Assistance Bathing Goal Moderate Assistance Toilet Transfer Goal Contact Guard Assistance Shower Transfer Goal Minimal Assistance Days to Meet Goals 29 Frequency of Treatment Frequency Of Treatment Once a Day Treatment Plan OT Treatment Plan ADL Training,Functional Cognition Training,Functional Mobility,Patient/Family Education,Discharge Planning Other Treatment Recommendations and Next MODA X 2 with FWW to transfer Treatment Focus to [facility]. Discharge Recommendations OT Discharge Recommendations SNF Rehab Transportation Needs at Discharge Stretcher/Ambulance
--- NOTE | 2023-04-01 10:45 | SLP.IPNOTE ---
Pt has opted for artificial feeding. Discharging from at this time.
[2023-04-01] MEDS: MORPHINE 2 MG/ML INJ IV (11:57)
--- NOTE | 2023-04-01 15:45 | CM.DPC ---
DCP Cont: Per MD, plan was PEG tube placement with Surgeon jenni but procedure was cancelled for today as they do not have the supplies for tube placement and will attempt again tomorrow Wed. SW spoke to [facility] admissions and provided Dietary recommendations for Jevity and they placed order and have supplies already in-house for Jevity and can accept at d/c. Per PT/OT, recommending likely need of BLS transport at d/c. SW met bedside with pt and two sons and updated on continued acceptance at [facility] and answered questions regarding Medicare coverage for SNF and care and their own d/c team to help with coordinating plan after SNF rehab. SW discussed BLS transport and pt and sons agree that pt likely cannot safely manage cabulance that distance. SW discussed potential for Medicare not fully covering BLS transport and pt and sons still agreeable with stretcher transport at d/c. BLS form completed, MD signature still needed. No transport scheduled yet as surgery cancelled for today and d/c timeline still uncertain. Plan: SW to follow for Tube Feeding placement with Surgeon when supplies delivered and confirmation pt can tolerate Jevity and then d/c to [facility] via BLS. Suly Graham, DISTRIBUTION ESTIMATOR
[2023-04-01] MEDS: CARBIDOPA-LEVODOPA 25/100 TABLET 2 EACH PO ×2 (15:52→21:17)
[2023-04-01 17:00] VITALS: BP 145/70; PULSE 67; RESP 17; TEMP 36.3; O2SAT 96
--- NOTE | 2023-04-01 18:13 | P.PN_ITS ---
Subjective Subjective Date Patient Seen: 04/01/23 Time Patient Seen: 18:13 Interval history: The equipment for a percutaneous endoscopic gastrostomy tube is scheduled to be here tomorrow. Exam Vital Signs (past 8 hours): - 04/01/23 17:00 Temperature 97.3 F L Pulse Rate 67 Respiratory Rate 17 Blood Pressure 145/70 H Pulse Oximetry 96 Oxygen Flow Rate 0 Fraction of Inspired Oxygen 28 SaO2/FiO2 Ratio 339 Oxygen Delivery Method Room Air Oxygen Flow Rate 0 Const General: No acute distress Objective Labs 04/01/23 06:05 04/01/23 06:05 Labs: Laboratory Results - last 24 hr 04/01/23 04/01/23 06:05 06:05 WBC 8.3 RBC 4.49 L Hgb 14.8 Hct 41.3 MCV 92.0 MCH 33.0 MCHC 35.9 RDW 13.1 Plt Count 229 Neut % (Auto) 70.1 Lymph % (Auto) 18.4 L [place] % (Auto) 8.5 Eos % (Auto) 2.5 Baso % (Auto) 0.5 Neut # (Auto) 5800 Lymph # (Auto) 1500 [place] # (Auto) 700 Eos # (Auto) 200 Baso # (Auto) 0 Sodium 142 Potassium 3.3 L Chloride 110 H Carbon Dioxide 31 BUN 25 H Creatinine 0.52 L Estimated GFR > 60 BUN/Creatinine Ratio 48.1 H Glucose 127 H Calcium 8.1 L Magnesium 2.2 PFSH Medical History (Updated 03/25/23 @ 17:48 by Denisse Blackmon RN) Actinic keratosis Arthritis Depression Drooling Erectile dysfunction Essential hypertension Falls frequently Fasting hyperglycemia Former smoker Hypertension Inguinal hernia Lumbar back pain Macrocytosis Normal colonoscopy Osteoarthritis of right hip Parkinsons disease Sebaceous cyst Seborrheic keratosis Surgical History (Updated 03/25/23 @ 17:48 by Denisse Blackmon RN) H/O cataract removal with insertion of prosthetic lens Social History household members: none Smoking Status: Former smoker Assessment & Plan Assessment and plan (1) Parkinson's disease: Status: Acute Plan We will plan for percutaneous endoscopic gastrostomy tube placement tomorrow afternoon. The patient should be NPO after midnight. Hold Lovenox. Quality VTE Deep Vein Thrombosis/Pulmonary Embolism Present on Admission: No
[2023-04-01] MEDS: QUETIAPINE 25 MG TABLET PO (21:17)
[2023-04-01] MEDS: DEXTROSE 5% WATER 1,000 ML 45 ML IV (21:20)
[2023-04-01] MEDS: SODIUM CHLORIDE 0.9% FLUSH 10 ML IV (21:22)
[2023-04-01] MEDS: ONDANSETRON 4 MG/2 ML INJ IV (23:10)
[2023-04-02] VITALS (13 sets, daily range): BP systolic 123–150; BP diastolic 50–84; PULSE 63–91; RESP 10–23; TEMP 36–36.9; O2SAT 95–100; BMI 24.4
[2023-04-02 06:46] LABS: Add Manual Diff / Slide Review NO; Basophils Absolute Auto 0 /uL (0-100); Basophils Percent Auto 0.6 % (0-2); Eosinophils Absolute Auto 200 /uL (0-450); Eosinophils Percent Auto 2.7 % (2-4); Hematocrit 40.5 % (41-53); Hemoglobin 14.4 g/dL (13.5-17.5); Lymphocytes Absolute Auto 1600 /uL (1100-4500); Lymphocytes Percent Auto 21.9 % (25-40); Mean Corpuscular HGB Conc 35.6 % (30-36); Mean Corpuscular Hemoglobin 32.9 PG (26-34); Mean Corpuscular Volume 92.5 fL (80-100); Monocytes Absolute Auto 700 /uL (0-900); Monocytes Percent Auto 9.9 % (3-14); Neutrophils Absolute Auto 4800 /uL (1500-7000); Neutrophils Percent Auto 64.9 % (50-75); Platelet Count 213 X10^3/uL (150-400); Red Blood Cell Count 4.38 X10^6/uL (4.5-5.9); Red Cell Distribution Width 13.3 % (11.6-14.8); White Blood Cell Count 7.5 X10^3/uL (4.5-11.0)
[2023-04-02 06:57] LABS: BUN Creatinine Ratio 42.9 (6-22); Blood Urea Nitrogen 24 mg/dL (9-20); Carbon Dioxide 29 mmol/L (22-32); Chloride 108 mmol/L (98-107); Estimated Glomerular Filt Rate > 60 mL/min (>60); Glucose 126 mg/dL (80-110); HEMOLYSIS < 15 (0-50); Potassium 3.4 mmol/L (3.4-5.1); Sodium 140 mmol/L (137-145)
--- NOTE | 2023-04-02 07:37 | PM.PN.1 ---
Subjective Subjective Interval history: Awaiting PEG tube placement today at 3pm. Son's FMLA paperwork filled out. Exam Vital Signs (past 8 hours): - 04/02/23 01:00 Temperature 97.6 F Pulse Rate 63 Respiratory Rate 16 Blood Pressure 127/61 Pulse Oximetry 96 Oxygen Flow Rate 0 Fraction of Inspired Oxygen 28 SaO2/FiO2 Ratio 339 Oxygen Delivery Method Room Air Oxygen Flow Rate 0 Narrative Exam Narrative: GEN: no acute distress, flat affect due to parkinson's has improved HEENT: moist mucous membranes, PERRL NECK: trachea midline, no JVD CV: regular rate and rhythm, no murmurs PULM: clear bilaterally ABD: soft, nontender, nondistended, no organomegaly EXT: right forearm and hand with increased swelling, no erythema, cap refill normal and sensation intact, radial pulse on R +2 NEURO: awake, alert, oriented, no focal deficits Objective Labs 04/02/23 06:37 04/02/23 06:37 Labs: Laboratory Results - last 24 hr 04/02/23 04/02/23 06:37 06:37 WBC 7.5 RBC 4.38 L Hgb 14.4 Hct 40.5 L MCV 92.5 MCH 32.9 MCHC 35.6 RDW 13.3 Plt Count 213 Neut % (Auto) 64.9 Lymph % (Auto) 21.9 L [place] % (Auto) 9.9 Eos % (Auto) 2.7 Baso % (Auto) 0.6 Neut # (Auto) 4800 Lymph # (Auto) 1600 [place] # (Auto) 700 Eos # (Auto) 200 Baso # (Auto) 0 Sodium 140 Potassium 3.4 Chloride 108 H Carbon Dioxide 29 BUN 24 H Creatinine 0.56 L Estimated GFR > 60 BUN/Creatinine Ratio 42.9 H Glucose 126 H Calcium 8.0 L PFSH Medical History (Updated 03/25/23 @ 17:48 by Denisse Blackmon RN) Actinic keratosis Arthritis Depression Drooling Erectile dysfunction Essential hypertension Falls frequently Fasting hyperglycemia Former smoker Hypertension Inguinal hernia Lumbar back pain Macrocytosis Normal colonoscopy Osteoarthritis of right hip Parkinsons disease Sebaceous cyst Seborrheic keratosis Surgical History (Updated 03/25/23 @ 17:48 by Denisse Blackmon RN) H/O cataract removal with insertion of prosthetic lens Social History household members: none Smoking Status: Former smoker alcohol intake: current Assessment & Plan Assessment & Plan narrative: # dysphagia with acute aspiration -likely secondary to untreated Parkinsons -started sinemet 25/100 TID on 03/26 with some improvement in affect and dexterity, but none in swallowing -no improvement in swallowing with sinemet thus far, 3 separate MBS studies with johanna aspiration -increased sinemet to 50/200 TID on 03/31 -continue NPO with ice chips for comfort, patient elected for PEG following GOC discussion on 03/31 -Dr. Gabriel, gen surg consulted and placed PEG on 04/02 -research/program director consult for tube feeds to start evening of 04/02 # acute hypoxic respiratory failure, not present on admission, resolved -overnight 03/28 patient became hypoxic, likely due to volume overload but was started on zosyn empirically. With no fever and normal WBC, improvement in hypoxia with cessation of fluids have stopped antibiotics given low likelihood of bacterial pneumonia as the etiology. -weaned off O2 # acute rhabdomyolysis without ASHKAN, improved -CK 11,163, normal kidney function on admit worsened to 17K on HD#1, -continued IV fluids and trending CK levels, improved to 4483, IV fluids stopped 03/28 evening given hypoxia which has resolved. -CK continues to downtrend to 1028 on 03/30. # ground level fall and prolonged downtime -accidentally tripped while putting on pants, too weak to get up likely due to parkinson's -continue PT/OT eval with addition of sinemet -will need SNF # right forearm and hand swelling -no evidence of compartment syndrome, no fractures on imaging. US RUE negative for DVT. -oxy PRN for pain # elevated LFT's -likely due to rhabdo and has been improving. -monitor # Parkinson's disease -not on sinemet due to hallucinations with it, will need to restart given his mobility and speech restrctions understanding risk of hallucination. Removed sinemet allergy from chart. -had referral to neurologist placed, but patient didn't want to go -spoke with patient and son on 03/26 about the importance of treating his parkinsons given risk of progressive disease causing falls, aspiration and pneumonia is high. Patient agreed to see neurology as outpatient. -continue sinemet as above, now at 50/200 TID # HTN -hold home HCTZ and lisinopril as currently normotensive. #hypokalemia -repleted with IV, continue to trend #hypernatremia, resolved - due to decreased oral intake, started on slow d5W and resolved. Code status is DNR. COVID negative. DVT prophylaxis with Lovenox, hold for surg Proxy is neel Flores. Dispo: SNF on 04/03. Quality VTE Deep Vein Thrombosis/Pulmonary Embolism Present on Admission: No
[2023-04-02] MEDS: CARBIDOPA-LEVODOPA 25/100 TABLET 2 EACH PO ×3 (08:45→20:36)
--- NOTE | 2023-04-02 09:48 | DIET.CONS2 ---
Dietary Inpatient Consultation Note Admission Date: 03/26/2023 14:26 Pt remains NPO awaiting PEG placement which should happen today. TF reccs are in and SNF already set up with TF supplies and plan. Diet: 04/01/23 00:01 NPO Diet Diet Modifications: NPO Type: NPO except for Meds Nutrition Percent Meal Consumed pt npo 04/02/23 09:00 Percent Meal Consumed pt npo 04/01/23 18:00 Percent Meal Consumed pt npo 04/01/23 09:31 Percent Meal Consumed pt npo 03/31/23 17:00 Electronically Signed by: Diann Lagunas 04/02/23 09:48 Clinical Dietitian [address] [address]
[2023-04-02] MEDS: POTASSIUM CHLORIDE IN WATER 10 MEQ/100 ML PIGGYBACK 100 MEQ IV ×2 (10:31→12:54)
--- NOTE | 2023-04-02 13:13 | CM.DPNOTE ---
DCP Note Discharge tentatively scheduled for tomorrow, to [facility] via their facility wheelchair van, flower buncher or picker at 10[address] Dr Nichols updated CM team following closely for coordination of DCP once patient is medically cleared for discharge JW
--- NOTE | 2023-04-02 13:25 | OT.IPNOTE ---
Pt to have surgery for Peg tube today.
--- NOTE | 2023-04-02 13:52 | PT-IP ANOTE ---
Per nursing pt not appropriate today for PT due to surgery, will attempt to see tomorrow if still in hospital.
[2023-04-02] MEDS: LACTATED RINGERS 1,000 ML 84 ML IV (13:58)
--- NOTE | 2023-04-02 14:34 | PC.NURSE ---
Patient taken by bed at approximately 1350 to preop by bed.
--- NOTE | 2023-04-02 14:41 | PM.PREOP ---
Pre-operative Note COVID-19 COVID-19 status: Not tested Interval Note History & Physical reviewed/Exam performed by Physician: Yes Changes to H&P: No ASA Class (for procedural sedation): IV
--- NOTE | 2023-04-02 15:53 | P.OP_ITS ---
Operative Date/Time/Diagnoses Date of procedure: 04/02/23 Time of procedure: 15:53 Pre-op diagnosis: Dysphagia Post-op diagnosis: same Procedure & Clinicians Procedure: Percutaneous endoscopic gastrostomy tube Same procedure as scheduled: Yes Surgeon: Martinez Gabriel Emanations Analysis Technician: Serafin Thomason Click Yes if Unassisted: Yes Anesthesia Type: General Operative Notes Procedure in detail: The patient was brought to the operating room and transferred to the operating room table in the supine position. A time-out was performed. General endotracheal anesthesia was induced. The abdomen was prepped and draped in the usual fashion and a time-out was performed. We started with an EGD. The endoscope was inserted into the stomach and the stomach was insufflated with air as much as possible. A suitable location was chosen in the left upper quadrant near the midline where digital palpation on the abdominal wall was translated to the gastric wall endoscopically. Local anesthetic was injected into the skin and subcutaneous tissue at this location. An incision was made with a scalpel. The needle was inserted into the stomach under direct vision. The sheath was then slid over the needle and the needle was removed. The wire was inserted into the stomach. A snare was used to grasp the wire and followed out of the patient's mouth. The wire was then attached to the the PEG tube and the PEG tube was pulled into the stomach and positioned appropriately. The endoscope was reinserted and the bumper was visualized within the gastric lumen. No photo was taken because the equipment was nonfunctional. The scope was then removed from the patient's mouth and the distal end of the PEG tube was trimmed and the bumper was applied. The clasp was applied followed by the cap. A dressing was applied around PEG site. The patient was awakened and brought to recovery room. EBL: 5 mL Okay to use PEG tube now. Post-operative Condition: stable Disposition: PACU
--- NOTE | 2023-04-02 17:22 | DIET.PN1 ---
Addendum entered by Diann Lagunas 04/02/23 17:32: If pts electrolytes markedly dropped in morning labs, recc pausing advancement of rate until normalized. Original Note: Dietary Progress Note 1. Recc initiation of continuous pump assisted enteral feeding via PEG tube using Jevity 1.2. Once pt tolerating goal rate, recc starting bolus gravity feeds in anticipation of d/c. Jevity 1.2 initiating at 20mL/h titrating up by 10-20mL q6h as tolerated until reaching goal rate of 70mL/h. Recc 150mL free water flushes q6h. Formula plus free water provide 2016kcals (25kcal/kg), 92g PRO (1.2g/kg), 1356mL feed water and 900mL free water (28mL/kg). 2. HOB elevated <30 degrees at all times. 3. Check electrolytes in am and replete as needed. EER: 2,000 kcals (25kcal/kg), 93g PRO (1.2g/kg per elder) 04/01/23 09:31 Labs: RBC 4.38 X10^6/uL (4.5-5.9) L 04/02/23 06:37 Hgb 14.4 g/dL (13.5-17.5) 04/02/23 06:37 Hct 40.5 % (41-53) L 04/02/23 06:37 Creatinine 0.56 mg/dL (0.66-1.25) L 04/02/23 06:37 Lactate 1.5 mmol/L (0.7-2.1) 03/28/23 21:51 NT-Pro-B Natriuret Pep 1720 pg/mL (<450) H 03/28/23 21:51 Electronically Signed by: Diann Lagunas 04/02/23 17:22 Clinical Dietitian [address] [address]
[2023-04-02] MEDS: QUETIAPINE 25 MG TABLET PO (20:37)
[2023-04-02] MEDS: SODIUM CHLORIDE 0.9% FLUSH 10 ML IV (20:37)
[2023-04-02] MEDS: DEXTROSE 5% WATER 1,000 ML 45 ML IV (21:22)
[2023-04-03 04:10] VITALS: BP 120/59; PULSE 64; RESP 20; TEMP 36.4; O2SAT 97
--- NOTE | 2023-04-03 06:36 | PC.NURSE ---
Pt tolerating tube feeding well. Pt denies nausea, bloating, discomfort or pain. Residual assessed at midnight and 0600, each time resulting in 30-50 ml of slightly foamy mix of tpn & small amount of coffee ground blood. Rate increased 20 ml/hr as directed at each Q6 residual check to meet goal of 70 ml/hr within 24 hrs.
[2023-04-03 06:52] LABS: Add Manual Diff / Slide Review NO; Basophils Absolute Auto 0 /uL (0-100); Basophils Percent Auto 0.3 % (0-2); Eosinophils Absolute Auto 100 /uL (0-450); Eosinophils Percent Auto 1.3 % (2-4); Hematocrit 38.9 % (41-53); Hemoglobin 14.1 g/dL (13.5-17.5); Lymphocytes Absolute Auto 1300 /uL (1100-4500); Mean Corpuscular Hemoglobin 33.3 PG (26-34); Mean Corpuscular Volume 92.1 fL (80-100); Monocytes Absolute Auto 700 /uL (0-900); Monocytes Percent Auto 6.5 % (3-14); Neutrophils Absolute Auto 8500 /uL (1500-7000); Neutrophils Percent Auto 79.9 % (50-75); Platelet Count 232 X10^3/uL (150-400); Red Blood Cell Count 4.22 X10^6/uL (4.5-5.9); Red Cell Distribution Width 13.3 % (11.6-14.8); White Blood Cell Count 10.6 X10^3/uL (4.5-11.0)
[2023-04-03 07:09] LABS: Mean Corpuscular HGB Conc 36.2 % (30-36)
[2023-04-03 07:33] LABS: BUN Creatinine Ratio 37.7 (6-22); Blood Urea Nitrogen 20 mg/dL (9-20); Calcium 7.9 mg/dL (8.4-10.2); Carbon Dioxide 29 mmol/L (22-32); Chloride 104 mmol/L (98-107); Estimated Glomerular Filt Rate > 60 mL/min (>60); Glucose 191 mg/dL (80-110); HEMOLYSIS 15 (0-50); Potassium 3.4 mmol/L (3.4-5.1); Sodium 137 mmol/L (137-145)
[2023-04-03] MEDS: OXYCODONE IR 5 MG TABLET PO (08:14)
[2023-04-03] MEDS: SODIUM CHLORIDE 0.9% FLUSH 10 ML IV (08:17)
[2023-04-03] MEDS: ACETAMINOPHEN 325 MG TABLET 650 MG PO (08:17)
--- NOTE | 2023-04-03 08:41 | PM.DS.1 ---
History of Present Illness History of Present Illness Date Patient Seen: 03/25/23 Time Patient Seen: 15:00 Chief complaint: Fall last night,found on ground Narrative: Mohan Roberts is an 82-year-old male with past medical history of Parkinson's disease not on Sinemet and HTN who presents after fall at home and lying on the ground all night. Patient states he lives alone in a trailer and uses a walker to ambulate. Last night while attempting to put on pants, he tripped and landed facefirst. He was unable to get up due to weakness from his Parkinson's. He did not lose conciousness. He says he laid on the floor overnight for over 6 hours until his family found him and called EMS. He states he is having pain in his right hand and arm. Both are more swollen than his left extremity. He still has feeling in his hand. Patient says he doesn't take meds for his parkinson's due to hallucinations he had with them in the past. He denies CP, SOB, abd pain, NV or diarrhea. In the ED patient found to have rhabdo with CK 11k. Cr normal. CT head, neck, face and right hand XR shows no fractures. He has a right periorbital contusion on CT from his face lying on the ground. 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 Routine Comment: likely SNF 03/26/23 08:55 Consult to Speech Therapy Evaluate & Treat Comment: Physician Instructions: Evaluate and treat 03/31/23 12:09 Consult to Dietitian, Adult Routine Comment: Reason For Exam: tube feeds Consult to General Surgery Routine Comment: Consulting Provider: Martinez Gabriel Reason for consultation: needs PEG tube Has provider been notified: Yes 04/02/23 17:23 Consult to Dietitian, Adult Routine Comment: Reason For Exam: tube feeds Discharge provider: Raheel Nichols DO Summary Hospital Course Discharge Diagnosis: # dysphagia with acute aspiration -likely secondary to untreated Parkinsons -started sinemet 25/100 TID on 03/26 with some improvement in affect and dexterity, but none in swallowing -no improvement in swallowing with sinemet thus far, 3 separate MBS studies with johanna aspiration -increased sinemet to 50/200 TID on 03/31 -continue NPO with ice chips for comfort, patient elected for PEG following GOC discussion on 03/31 -Dr. 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 With no fever and normal WBC, improvement in hypoxia with cessation of fluids have stopped antibiotics given low likelihood of bacterial pneumonia as the etiology. -weaned off O2 # acute rhabdomyolysis without ASHKAN, improved -CK 11,163, normal kidney function on admit worsened to 17K on HD#1, -continued IV fluids and trending CK levels, improved to 4483, IV fluids stopped 03/28 evening given hypoxia which has resolved. -CK continues to downtrend to 1028 on 03/30. # ground level fall and prolonged downtime -accidentally tripped while putting on pants, too weak to get up likely due to parkinson's. Laid on floor for 10 hours until found by family. -continue PT/OT eval with addition of sinemet -will need SNF # right forearm and hand swelling -no evidence of compartment syndrome, no fractures on imaging. US RUE negative for DVT. -oxy PRN for pain # elevated LFT's -likely due to rhabdo and has been improving. -monitor # Parkinson's disease -not on sinemet due to hallucinations with it, will need to restart given his mobility and speech restrctions understanding risk of hallucination. Removed sinemet allergy from chart. -had referral to neurologist placed, but patient didn't want to go -spoke with patient and son on 03/26 about the importance of treating his parkinsons given risk of progressive disease causing falls, aspiration and pneumonia is high. Patient agreed to see neurology as outpatient. -continue sinemet as above, now at 50/200 TID -will need outpatient neurology referral from PCP for ongoing management of his parkinson's # HTN -hold home HCTZ and lisinopril as currently normotensive. -stopped HCTZ and continued lisinopril on dc #hypokalemia ?-repleted with IV, continue to trend #hypernatremia, resolved - due to decreased oral intake, started on slow d5W and resolved. Hospital Course: Admitted for GLF at home and laying on floor for 10 hours. Found to have rhabdo which improved with IVF. Had significant dysphagia with aspiration, failing 3 MBS trials. GOC discussion resulted in patient wanting feeding tube. In an effort to improve his swallow, sinemet was started and titrated up to 50/200 TID. This improved his motor function and weakness but not his swallow. PEG tube placed on 04/02. PT rec SNF. He will need f/u with outpatient neurology for ongoing management of his Parkinson's. The goal is that eventually if his parkinson's is treated well enough, his swallow will return and he will no longer need the feeding tube. Time Spent with Patient Time spent: Greater than 30 minutes Exam Vital Signs (past 8 hours): - 04/03/23 04:10 Temperature 97.6 F Pulse Rate 64 Respiratory Rate 20 Blood Pressure 120/59 L Pulse Oximetry 97 Oxygen Flow Rate 0 Fraction of Inspired Oxygen 28 SaO2/FiO2 Ratio 339 Oxygen Delivery Method Room Air Oxygen Flow Rate 0 Narrative Exam Narrative: GEN: no acute distress, flat affect due to parkinson's has improved HEENT: moist mucous membranes, PERRL NECK: trachea midline, no JVD CV: regular rate and rhythm, no murmurs PULM: clear bilaterally ABD: soft, nontender, nondistended, no organomegaly EXT: right forearm and hand with increased swelling, no erythema, cap refill normal and sensation intact, radial pulse on R +2 NEURO: awake, alert, oriented, no focal deficits Objective Labs 04/03/23 06:23 04/03/23 06:23 Labs: Laboratory Results - last 24 hr 04/03/23 04/03/23 06:23 06:23 WBC 10.6 RBC 4.22 L Hgb 14.1 Hct 38.9 L MCV 92.1 MCH 33.3 MCHC 36.2 H RDW 13.3 Plt Count 232 Neut % (Auto) 79.9 H Lymph % (Auto) 12.0 L [place] % (Auto) 6.5 Eos % (Auto) 1.3 L Baso % (Auto) 0.3 Neut # (Auto) 8500 H Lymph # (Auto) 1300 [place] # (Auto) 700 Eos # (Auto) 100 Baso # (Auto) 0 Sodium 137 Potassium 3.4 Chloride 104 Carbon Dioxide 29 BUN 20 Creatinine 0.53 L Estimated GFR > 60 BUN/Creatinine Ratio 37.7 H Glucose 191 H Calcium 7.9 L PFSH Medical History (Updated 03/25/23 @ 17:48 by Denisse Blackmon, RN) Actinic keratosis Arthritis Depression Drooling Erectile dysfunction Essential hypertension Falls frequently Fasting hyperglycemia Former smoker Hypertension Inguinal hernia Lumbar back pain Macrocytosis Normal colonoscopy Osteoarthritis of right hip Parkinsons disease Sebaceous cyst Seborrheic keratosis Surgical History (Updated 03/25/23 @ 17:48 by Denisse Blackmon, RN) H/O cataract removal with insertion of prosthetic lens Social History household members: none Smoking Status: Former smoker alcohol intake: current Discharge Plan Discharge Plan Patient Disposition: SNF Discharge orders & Medications Prescriptions: New carbidopa-levodopa 25-100 mg tablet,disintegrating 2 tab PO TID Qty: 60 0RF Continued aspirin 81 mg tablet,delayed release (DR/EC) 81 mg PO DAILY lisinopril 10 mg tablet 10 mg PO DAILY Discontinued hydrochlorothiazide 25 mg tablet 25 mg PO DAILY Follow up/Referrals: Jagjit Chandra MD [Primary Care Provider] - 2 Weeks (needs referral to neurology for parkinson's management) Discharge Health Status Multidrug resistant organism: No MDRO Diet/Activity/Treatments Diet: Tube Feeding Diet comment: NPO but can have ice chips or mouth swabs for comfort Catheter: 2-way [facility] Rehab type: Physical therapy, Occupational therapy and Speech therapy Visit Report/Discharge Packet Stand Alone Forms: Patient Portal/API Discharge Data Primary Care Provider: Jagjit Chandra Quality VTE Deep Vein Thrombosis/Pulmonary Embolism Present on Admission: No
[2023-04-03 09:22] LABS: COVID19 -Nasal RAPID Negative (Negative)
[2023-04-03] MEDS: CARBIDOPA-LEVODOPA 25/100 TABLET 2 EACH PO (09:28)
[2023-04-03] MEDS: ENOXAPARIN 40 MG/0.4 ML SYRINGE SUBCUT (09:30)
--- NOTE | 2023-04-03 09:36 | DIET.CONS2 ---
Dietary Inpatient Consultation Note Admission Date: 03/26/2023 14:26 Pt tolerating TF 60mL/h since 0600 and can titrate up to goal. No N/V or residuals. Pt cleared by nutrition to d/c to SNF at 1030. Pt may benefit from another day of continuous or intermittent 12 on/12 off TFs before switching to bolus feeds. Alternately, recc smaller bolus feeds more frequently for a day or two. Diet: 04/01/23 00:01 NPO Diet Diet Modifications: NPO Type: NPO except for Ice Chips 04/02/23 Dinner Tube Feeding Diet Diet Modifications: TF Supplement type: Jevity 1.2 christin TF mode of delivery: Continuous Starting flow rate mL/hr: 20 Flow rate goal mL/hr: 70 Titration Schedule to reach Goal Rate: increase by 10-20mL q6h as tolerated Max total daily volume in mL: 2,300 Free fluid: 150 Free Water Frequency: Q4H Comment: as approved by hospitalist Nutrition Percent Meal Consumed pt npo 04/02/23 18:00 Percent Meal Consumed pt npo 04/02/23 17:00 Percent Meal Consumed pt npo 04/02/23 09:00 Percent Meal Consumed pt npo 04/01/23 18:00 Type of Feeding Tube PEG 04/02/23 18:55 Electronically Signed by: Diann Lagunas 04/03/23 09:36 Clinical Dietitian [address] [address]
--- NOTE | 2023-04-03 10:11 | OT.IPNOTE ---
Reconfirmed with case management that BLS with be best for the pt at this time due to poor trunk control in sitting. Pt being discharged today.
--- NOTE | 2023-04-03 10:38 | CM.DPNOTE ---
Addendum entered by ALEXANDRU Phillips 04/03/23 10:51: ADD: Patient DNR, updated POLST completed by Dr Nichols and WING Lao made copies and placed on patient's chart for BLS crew. BLS form completed, signed by Dr Nichols and placed in chart Original Note: DC Note Discharge this morning to [facility]. JEFF Solorzano, assisting with this coordination. Peg tube inserted yesterday and patient tolerating well [facility] van originally scheduled for warehouse picker at 1030; however therapy team and son concerned about patient tolerating this ride. S contacted and transport arranged for 1100. Patient and family made aware that out of pocket cost for S transport is likely and son states understanding [facility] van canceled KRISTIN Mai updated throughout the morning Plan: Discharge to [facility] via BLS JW
--- NOTE | 2023-04-03 12:00 | PC.NURSE ---
Patient A&OX2-3. VSS, afebrile on RA. He is tolerating TF well continuously at 60ml/hr today (Jevity 1.2). TF residual 10ml. He is cleared for discharge to [facility] this a.m. Condom cath in place still draining remy colored urine. RUE without weeping but remains tender with +3 edema. He is medicated via PEG with scheduled meds and prn pain medications. Midline dc'd this a.m. COVID swab sent to lab. Son at bedside gathering belongings, very supportive. TF stopped for transport. Report called to Loli at [facility]. He is escorted by stretcher with EMS at 1100 a.m.
== END 2023-04-03 11:24 | DRG 557 ==
LOC: ED 11:28 → AC 13:34
PROVIDERS: Internal Medicine; Surgery; Admitting Provider Student in an Organized Health Care Education/Training Program; Emergency Provider Emergency Medicine; PCP Internal Medicine; Referring Provider Emergency Medicine; Visit Provider Student in an Organized Health Care Education/Training Program
PROC: 0DH63UZ Insertion of Feeding Device into Stomach, Percutaneous Approach (ICD-10-PCS; CPT 43246; principal; 2023-04-02 14:30)
DX: M62.82 Rhabdomyolysis (principal); J96.01 Acute respiratory failure with hypoxia; E87.0 Hyperosmolality and hypernatremia; S00.11XA Contusion of right eyelid and periocular area, initial encounter; I10 Essential (primary) hypertension; M79.601 Pain in right arm; M79.641 Pain in right hand; G20 Parkinson's disease; R47.02 Dysphasia; E87.6 Hypokalemia; M79.89 Other specified soft tissue disorders; T17.928A Food in respiratory tract, part unspecified causing other injury, initial encounter; H53.8 Other visual disturbances; F02.80 Dementia in other diseases classified elsewhere, unspecified severity, without behavioral disturbance, psychotic disturbance, mood disturbance, and anxiety; W18.30XA Fall on same level, unspecified, initial encounter; Z20.822 Contact with and (suspected) exposure to COVID-19; Z66 Do not resuscitate; Z87.891 Personal history of nicotine dependence
CPT/HCPCS: 36415; 36592; 43246; 70450; 70486; 71045; 73090; 73130; 74230; 80048; 80053; 81001; 82550; 82553; 83605; 83690; 83735; 83880; 84132; 84484; 85025; 85027; 87635; 92526; 92611; 93971; 94760; 94762; 97163; 97167; 97530; 97535; 99232; 99284; C9803; G0378; J1642; J1650; J1940; J2270; J2405; J2543; J2704; J3010